=== PATIENT | male | born 1965 | race Caucasian/White ===

== ENCOUNTER → 2017-12-16 08:36 | Outpatient (CLI) | payer BC, SELFPAY ==
[2017-12-16 10:44] LABS: Absolute Lymphocyte Count 2.05 X10^3/ul (0.83-4.51); Absolute Neutrophil Count 1.3 X10^3/uL (2.0-7.7); Basophil# 0.02 X10^3/uL; Basophil% 0.5 % (0-1); Eosinophil# 0.17 X10^3/uL; Eosinophils% 4.3 % (0-5); Hematocrit 40.8 % (40-54); Hemoglobin 13.9 g/dl (13.0-16.5); Lymphocyte # 2.05 X10^3/ul (4.0); Lymphocyte % 51.3 % (19-41); Mean Corp Hgb Conc 34.1 g/gl (32-36); Mean Corpuscular Hgb 32.1 pg (27.0-32.0); Mean Corpuscular Volume 94.2 fL (80-94); Mean Platelet Vol. 9.8 fl (6.2-12.0); Monocyte# 0.47 X10^3/uL; Monocyte% 11.8 % (0-10); Neutrophil # 1.29 X10^3/uL (2.7-7.7); Neutrophil % 32.1 % (47-70); Platelet Count 235 K/mm3 (150-450); RBC Distribution Width CV 12.4 % (11.6-14.6); RBC Distribution Width SD 42.9 fl (35.1-43.9); Red Blood Count 4.33 M/mm3 (4.6-6.2)
[2017-12-16 10:47] LABS: POSITIVE COUNT NO; POSITIVE DIFFERENTIAL NO; POSITIVE MORPHOLOGY NO
[2017-12-16 11:01] LABS: ALB/GLOB Ratio 1.3 RATIO (0.9-2.4); AST(SGOT) 11 U/L (15-37); Alanine Aminotransfer ALT/SGPT 28 U/L (16-61); Albumin, Serum 4.4 g/dL (3.2-5.0); Alkaline Phosphatase 68 U/L (45-117); Anion Gap 7 (5-15); BUN 18 mg/dL (7-18); BUN/Creat Ratio 16.2 RATIO (10-20); Calcium,Total 8.9 mg/dL (8.5-10.1); Chloride 102 mmol/L (98-107); Creatinine, Serum 1.11 mg/dL (0.70-1.30); EST Glomerular Filtration Rate 74 mL/min (>60); Est Glom Filt Rate - Afr Amer 90 mL/min (>60); Ferritin 40 ng/mL (26-388); Globulin 3.3 g/dL (2.2-4.2); Glucose 137 mg/dL (74-106); Iron 149 ug/dL (65-175); Potassium 4.2 mmol/L (3.5-5.1); Protein, Total 7.7 g/dL (6.4-8.2); Sodium Level 138 mmol/L (136-145)
== END ==
PROVIDERS: Family Provider Family Medicine; PCP Family Medicine; Visit Provider Family Medicine
DX: E11.9 Type 2 diabetes mellitus without complications (principal); E83.119 Hemochromatosis, unspecified; K75.81 Nonalcoholic steatohepatitis (NASH)
CPT/HCPCS: 36415; 80053; 82728; 83036; 83540; 85025

== ENCOUNTER → 2018-01-24 08:28 | Outpatient (CLI) | payer BC, SELFPAY | PROVIDERS: Family Provider Family Medicine; PCP Family Medicine; Visit Provider Orthopaedic Surgery | DX: M25.531 Pain in right wrist (principal) | CPT/HCPCS: 73110 ==

== ENCOUNTER → 2018-05-10 08:19 | Outpatient (CLI) | payer BC, SELFPAY ==
--- NOTE | 2018-05-10 14:57 | NEURO ---
NCS and/or EMG Patient Report Ordering Doctor: Nevaeh Lopes DATE OF SERVICE: 05/10/18 Jose Reyes is a 52-year-old male presents for electrodiagnostic testing of the right upper limb. Reports numbness and tingling in the right hand. Electrodiagnostic findings: Right median motor nerve demonstrates prolonged distal latency with normal amplitude and reduced conduction velocity. Normal right ulnar motor response, including conduction across the elbow. Normal right median and ulnar F-wave. Prolonged right median sensory latency at the wrist. Needle EMG testing shows no evidence of denervation with normal motor unit action potentials. Electrodiagnostic impression: This is an abnormal study in the right upper limb. 1. Electrodiagnostic findings demonstrate right-sided median mononeuropathy. This is consistent with a mild right carpal tunnel syndrome. 2. No electrodiagnostic evidence for cervical radiculopathy. If there are any further questions, please do not hesitate to contact me
== END ==
PROVIDERS: Family Provider Family Medicine; PCP Family Medicine; Referring Provider Orthopaedic Surgery; Visit Provider Orthopaedic Surgery
DX: G56.01 Carpal tunnel syndrome, right upper limb (principal)
CPT/HCPCS: 95886; 95909

== ENCOUNTER → 2018-07-31 08:01 | Outpatient (CLI) | payer BC, SELFPAY ==
[2018-07-31 09:35] LABS: Absolute Lymphocyte Count 2.44 X10^3/ul (0.83-4.51); Absolute Neutrophil Count 1.4 X10^3/uL (2.0-7.7); Basophil# 0.02 X10^3/uL; Basophil% 0.4 % (0-1); Eosinophil# 0.26 X10^3/uL; Eosinophils% 5.7 % (0-5); Hematocrit 40.2 % (40-54); Hemoglobin 13.8 g/dl (13.0-16.5); Lymphocyte # 2.44 X10^3/ul (4.0); Lymphocyte % 53.9 % (19-41); Mean Corp Hgb Conc 34.3 g/gl (32-36); Mean Corpuscular Hgb 32.3 pg (27.0-32.0); Mean Corpuscular Volume 94.1 fL (80-94); Mean Platelet Vol. 10.4 fl (6.2-12.0); Monocyte# 0.44 X10^3/uL; Monocyte% 9.7 % (0-10); Neutrophil # 1.37 X10^3/uL (2.7-7.7); Neutrophil % 30.3 % (47-70); Platelet Count 221 K/mm3 (150-450); RBC Distribution Width CV 12.6 % (11.6-14.6); RBC Distribution Width SD 42.8 fl (35.1-43.9); Red Blood Count 4.27 M/mm3 (4.6-6.2); White Blood Count 4.5 K/mm3 (4.4-11.0)
[2018-07-31 09:38] LABS: POSITIVE COUNT NO; POSITIVE DIFFERENTIAL NO; POSITIVE MORPHOLOGY NO
[2018-07-31 09:54] LABS: Hemoglobin A1c 7.5 % (4.2-6.3)
[2018-07-31 10:00] LABS: Microalbumin,Random Urine 5.3 mg/L (NO RANGE EST.); Microalbumin:Creatinine Ratio 3.8 mg/g CRE (<30 mg/g CRE)
[2018-07-31 10:13] LABS: ALB/GLOB Ratio 1.3 RATIO (0.9-2.4); AST(SGOT) 13 U/L (15-37); Alanine Aminotransfer ALT/SGPT 39 U/L (16-61); Alkaline Phosphatase 67 U/L (45-117); BUN 13 mg/dL (7-18); Calcium,Total 8.4 mg/dL (8.5-10.1); Cholesterol 224 mg/dL (200); EST Glomerular Filtration Rate 84 mL/min (>60); Est Glom Filt Rate - Afr Amer 102 mL/min (>60); Glucose 147 mg/dL (74-106); Triglycerides 168 mg/dL
[2018-07-31 10:14] LABS: Anion Gap 11 (5-15); Chloride 103 mmol/L (98-107); Ferritin 19 ng/mL (26-388); High Density Lipoprotein 41 mg/dL; Iron 84 ug/dL (65-175); Potassium 4.2 mmol/L (3.5-5.1); Sodium Level 141 mmol/L (136-145); Very Low Density Lipoprotein 34 mg/dL (5-40)
== END ==
PROVIDERS: Family Provider Family Medicine; PCP Family Medicine; Referring Provider Family Medicine; Visit Provider Family Medicine
DX: E11.9 Type 2 diabetes mellitus without complications (principal); E83.119 Hemochromatosis, unspecified; K75.81 Nonalcoholic steatohepatitis (NASH); I51.9 Heart disease, unspecified
CPT/HCPCS: 80053; 80061; 82043; 82570; 82728; 83036; 83540; 85025

== ENCOUNTER 2018-09-20 05:53 | Day surgery (SDC) | payer BC, SELFPAY ==
--- NOTE | 2018-09-12 11:54 | HP_ITS ---
Intake Intake Visit Reasons: RIGHT WRIST Is patient in pain?: Yes Allergies meperidine [From Demerol] Allergy (Verified 09/12/18 09:53) Hives promethazine [From Phenergan] Allergy (Verified 09/12/18 09:53) Hives CYCLINE'S Allergy (Uncoded 10/09/17 09:50) Hives Medications Liraglutide [Victoza 2-Oneil] 1.8 mg SQ DAILY 09/18/16 [History Confirmed 11/23/17] Metformin(XR) [Glucophage Xr] 1,000 mg PO BID 09/18/16 [History Confirmed 11/23/17] Pantoprazole Sodium [Protonix] 40 mg PO DAILY 09/18/16 [History Confirmed 11/23/17] PFSH Medical History Diabetes (Chronic) EVANS (Chronic) hay fever (Chronic) Palpitations (Acute) History of kidney disease (Acute) severe headaches (Acute) Bicuspid cardiac valve (Chronic) Hemochromatosis (Chronic) Surgical History History of tonsillectomy (Resolved) History of kidney surgery (Resolved) Family History Father CAD (coronary artery disease) Mother Heart disease Breast cancer Social History Smoking Status: Never smoker alcohol intake: never caffeine: Yes Type: carbonated beverages Number of servings: 3 HPI RIGHT WRIST: Surgical H&P: Yes Details: Parts of this documentation were recorded by a scribe, this documentation accurately reflects the service provided and the decisions made by me, Nevaeh Lopes, 09/12/18 0948. ALEJANDRO DORANTES is a 53 year old M here today for a followup after his right EMG. Patient notes that he has numbness into his first three fingertips. He states that his symptoms are worse at night. He has a brace which he wears at night. Patient notes that he has weakness. Patient had an injection on 01/24/18 which was helpful for about 5 months. He had an EMG in May which is here for review. ROS Const Reports system reviewed and no additional complaints, except as docu Eyes Reports system reviewed and no additional complaints, except as docu ENT Reports system reviewed and no additional complaints, except as docu Card Reports system reviewed and no additional complaints, except as docu Resp Reports system reviewed and no additional complaints, except as docu GI Reports system reviewed and no additional complaints, except as docu Reports system reviewed and no additional complaints, except as docu Musc Reports joint pain, Reports muscle weakness, Reports numbness Skin/Breast Reports system reviewed and no additional complaints, except as docu Neuro Yes system reviewed and no additional complaints, except as docu, Yes numbness Psych Reports system reviewed and no additional complaints, except as docu Endo Reports system reviewed and no additional complaints, except as docu Ortho Exam Right Wrist/Hand Contralateral Normal: Yes Right Wrist: Yes Durken's Test Motor: EPL: 5, FDP-2: 5, 1st Dorsal Interosseous: 5, APB: 5 Sensation: Radial: I, Ulnar: I, Median: D Assessment & Plan Problems 1. Carpal tunnel syndrome of right wrist G56.01 Plan Reviewed the post op restrictions, two weeks of reduced use and if the incision is healed well he can progress with lifting. Reviewed patient's EMG studies consistent with carpal tunnel syndrome of the right wrist. Patient states this is a downtime for him from a work perspective and would really like surgery done to not imposed on his work ability. Reviewed the pre-operative plans with the patient. Risks and benefits of the procedure were fully explained, including but not limited to infection, neurovascular injury, continued pain, arthritis, stiffness, need for further surgery, re-injury, DVT, PE, general risks of anesthesia, and loss of limb or life. The patient understands all the risks and does wish to proceed with written consent right carpal tunnel release. Follow up post op or sooner if pain, swelling, numbness or associated symptoms, or concerns develop. All questions answered. Patient in agreement of plan. Coding Level of Care Code Off vis,est,level 4 Diagnoses Carpal tunnel syndrome of right wrist G56.01
[2018-09-20 06:19] VITALS: BP 144/88; PULSE 85; RESP 16; TEMP 36.6; O2SAT 100; BMI 30.7
[2018-09-20 06:31] LABS: Bedside Glucose 174 mg/dL (70-110)
[2018-09-20] MEDS: Cefazolin 2 GM in 0.9% Normal Saline 100 ML IV (07:21)
--- NOTE | 2018-09-20 07:29 | PCM.DC.ORTHO ---
Discharge Diet: No Restrictions - leave dressing intact, follow up in 2 weeks, call with concerns, if dressing gets dirty please change Discharge Activity: May Not Drive May shower in (days): 1 Ice area for (Minutes): 20 - Every hour while awake. Weight Bearing Status: Weight bearing as tolerated Keep extremity elevated above heart level: Operative Extremity Call your doctor if your incision/area has: Continuous Slow Oozing, Sudden Increased Bleeding, Increased Pain/ Swelling, Increased Redness, Foul Smelling Discharge Call your doctor if you observe: Fever of 101 or Higher, Coldness, Increased Pain, Numbness or Tingling, Change in Color, Calf discomfort Allergies/Adverse Reactions: Allergies meperidine [From Demerol] Allergy (Verified 09/20/18 06:12) Hives promethazine [From Phenergan] Allergy (Verified 09/20/18 06:12) Hives CYCLINE'S Allergy (Uncoded 09/20/18 06:12) Hives Medications to take at Discharge Liraglutide [Victoza 2-Oneil] 1.8 mg SQ DAILY 09/18/16 Metformin(XR) [Glucophage Xr] 1,000 mg PO BID 09/18/16 Pantoprazole Sodium [Protonix] 40 mg PO DAILY 09/18/16 Cetirizine HCl [Zyrtec] 10 mg PO DAILY 09/15/18 Fluticasone 0.05% [Flonase Nasal [place]] 1 spray NASAL DAILY 09/15/18 Multivitamin [Multiple Vitamins] 1 each PO DAILY 09/15/18 Pseudoephedrine HCl [Sudafed 12 Hour] 120 mg PO PRN PRN 09/15/18 Vitamin E Mixed [Vitamin E] 400 unit PO BID 09/15/18 Hydrocodone Bitart/Apap 5-325 [[place] 5MG-325MG] 1 - 2 tablet PO Q6H PRN PRN 5 Days #20 tablet 09/20/18 The following prescriptions were given: Hydrocodone Bitart/Apap 5-325 [[place] 5MG-325MG] 1 - 2 tablet PO Q6H PRN PRN 5 Days #20 tablet PRN Reason: Pain Primary Care Physician: Gibson Arroyo DO [Primary Care Provider] - Test Results: Test results from this visit will be discussed in further detail at your follow-up appointment, if applicable. Please Follow Up With: Nevaeh Lopes, - [phone]
--- NOTE | 2018-09-20 07:30 | PCM.OPRPT ---
Problem List (1) Right carpal tunnel syndrome Status: Acute Report of Operation Date of Procedure: 09/20/18 Pre-Operative Diagnosis: right carpal tunnel syndrome Post-Operative Diagnosis: same Surgery/Procedure Performed:: right carpal tunnel release Type of Anesthesia:: Brett Thacker Anesthesiologist: Basilio Archibald Estimated Blood Loss (mL): minimal Fluids Replaced: 700cc lr Description of Procedure: Preoperative note Patient is a 53 year old patient with nerve conduction study confirming carpal tunnel syndrome. Patient failed conservative treatment for carpal tunnel elected proceed with right carpal tunnel release. Risks benefits and alternatives surgery discussed with patient. Risks including but not limited to blood loss, blood clot, infection, neurovascular injury, failure procedure, loss of life and loss of limb. Patient is aware like proceed with right carpal tunnel release. Operative note Patient seen and examined preoperative holding area. right hand was marked. History and physical and consent reviewed. Patient was brought to the operating room placed supine on the operating table. Sign in, anesthesia, antibiotics were administered. right upper extremity was prepped and draped after Brett block was initiated. All bony prominences well-padded SCDs placed on bilateral lower extremities. We marked out our incisions for our carpal tunnel release at the intersection of Belia's line in the fourth ray flexed. We extended about a centimeter and a half. Timeout was performed. We then checked ensure that the [place] block was working with pickups which it was . We then used a 15 blade to make a skin incision. We then dissected down tenotomy syllable of the transverse carpal ligament. We then used a new 15 blade cut through the transverse carpal ligament down to the level of the median nerve. We then further released the median nerve the combination of the 15 blade and tenotomies. The nerve was grayish in color and adherent to the transverse carpal ligament volarly. We released the transverse carpal ligament distally to the fat pad and then proximally under standard technique. We then palpated to ensure that we released all of the transverse carpal ligament which we did. We irrigated the incision with copious amounts of sterile saline. All bleeders were coagulated. The incision was closed with interrupted 4-0 nylon stitches. Tourniquet was deflated for total working time of 9 minutes. Patient tolerated procedure well there were no complications. Patient transferred to recovery room in stable condition. Postoperative note [facility] pharmacy has prescription Leave dressing clean dry and intact Follow-up in 2 weeks Call with concerns This note was generated with [employer] dictation software. It may contain incorrect words, spelling, and punctuation that were not noted in checking the note before signing
[2018-09-20] MEDS: Mupirocin Ointment 22gm Tube 1 APPLIC (07:51)
[2018-09-20 08:00] VITALS: BP 128/90; BP 144/88; PULSE 77; RESP 16; TEMP 36.1; O2SAT 95
[2018-09-20 08:05] VITALS: BP 133/91; BP 144/88; PULSE 77; RESP 17; O2SAT 95
[2018-09-20 08:10] VITALS: BP 126/87; BP 144/88; PULSE 75; RESP 16; O2SAT 96
[2018-09-20 08:17] VITALS: BP 118/80; BP 144/88; PULSE 75; RESP 16; TEMP 36.2; O2SAT 97
[2018-09-20 08:42] VITALS: BP 144/88
== END 2018-09-20 08:44 | disposition home or self-care (01) ==
LOC: SDC 05:55 → AC 05:58
PROVIDERS: Family Provider Family Medicine; PCP Family Medicine; Referring Provider Orthopaedic Surgery; Visit Provider Orthopaedic Surgery
PROC: (CPT 64721; principal; 2018-09-20 07:15)
DX: G56.01 Carpal tunnel syndrome, right upper limb (principal); E11.9 Type 2 diabetes mellitus without complications; K75.81 Nonalcoholic steatohepatitis (NASH); E83.119 Hemochromatosis, unspecified; Q23.1 Congenital insufficiency of aortic valve; K21.9 Gastro-esophageal reflux disease without esophagitis; Z79.84 Long term (current) use of oral hypoglycemic drugs; Z79.899 Other long term (current) drug therapy
CPT/HCPCS: 64721; 82962; J7120

== ENCOUNTER → 2018-10-06 14:38 | Outpatient (CLI) | payer BC, SELFPAY ==
[2018-10-03 08:24] VITALS: BMI 30.7
[2018-10-06 17:08] LABS: HIV - WCH Non-Reactive (Nonreactive)
[2018-10-06 17:30] LABS: Chlamydia Trachomatis by PCR Negative (Negative); Neisserai gonorrhoeae by PCR Negative (Negative); Probe Check PASS; Sample Adequacy Control PASS; Specimen Processing Control PASS
[2018-10-08 14:47] LABS: HEPATITIS B SURFACE AG Negative (Negative); Hep C Antibodies <0.1 s/co ratio (0.0-0.9)
[2018-10-13 03:40] LABS: Rapid Plasmin Reagin (RPR) NONREACTIVE (NONREACTIVE)
== END ==
PROVIDERS: Family Provider Family Medicine; PCP Family Medicine; Visit Provider Family Medicine
DX: Z20.2 Contact with and (suspected) exposure to infections with a predominantly sexual mode of transmission (principal); Z72.52 High risk homosexual behavior; Z51.81 Encounter for therapeutic drug level monitoring
CPT/HCPCS: 36415; 86592; 86703; 86803; 87340; 87491; 87591

== ENCOUNTER → 2018-10-31 | Outpatient (CLI) | payer BC, SELFPAY ==
[2018-10-03 08:24] VITALS: BMI 30.7
[2018-10-31 16:34] LABS: Color, Urine Straw (Yellow); Glucose, Dipstick 1000 mg/dl (Normal); Ketone-Dipstick Negative (Negative); Leukocyte Esterase-Dipstick Negative /ul (Negative); Nitrite-Dipstick Negative (Negative); Occult Blood-Urine Negative /ul (Negative); Protein-Dipstick Negative (Negative); Urine Bilirubin Dipstick Negative (Negative); Urine Clarity Clear (Clear); Urine Urobilinogen Normal (Normal); Urine pH 6.5 (5.0 - 8.0)
[2018-10-31 16:37] LABS: ALB/GLOB Ratio 1.3 RATIO (0.9-2.4); AST(SGOT) 21 U/L (15-37); Alanine Aminotransfer ALT/SGPT 51 U/L (16-61); Albumin, Serum 4.4 g/dL (3.2-5.0); Alkaline Phosphatase 83 U/L (45-117); Anion Gap 7 (5-15); BUN 11 mg/dL (7-18); BUN/Creat Ratio 8.9 RATIO (10-20); Calcium,Total 9.3 mg/dL (8.5-10.1); Chloride 103 mmol/L (98-107); Creatinine, Serum 1.24 mg/dL (0.70-1.30); EST Glomerular Filtration Rate 65 mL/min (>60); Est Glom Filt Rate - Afr Amer 79 mL/min (>60); Globulin 3.4 g/dL (2.2-4.2); Glucose 197 mg/dL (74-106); Potassium 4.5 mmol/L (3.5-5.1); Protein, Total 7.8 g/dL (6.4-8.2); Sodium Level 137 mmol/L (136-145)
[2018-10-31 17:22] LABS: HIV - WCH Non-Reactive (Nonreactive)
== END | disposition home or self-care (01) ==
LOC: LAB 15:24
PROVIDERS: Family Provider Family Medicine; PCP Family Medicine; Referring Provider Family Medicine; Visit Provider Family Medicine
DX: E83.119 Hemochromatosis, unspecified (principal); E78.5 Hyperlipidemia, unspecified; Z51.81 Encounter for therapeutic drug level monitoring
CPT/HCPCS: 36415; 80053; 81002; 86703

== ENCOUNTER → 2019-01-31 08:43 | Outpatient (CLI) | payer BC, SELFPAY ==
[2018-10-03 08:24] VITALS: BMI 30.7
[2018-11-30 09:01] VITALS: BMI 29.4
[2019-01-31 09:49] LABS: Hemoglobin A1c 7.2 % (4.2-6.3)
[2019-01-31 10:26] LABS: AST(SGOT) 14 U/L (15-37); Alanine Aminotransfer ALT/SGPT 35 U/L (16-61); Alkaline Phosphatase 71 U/L (45-117); Anion Gap 5 (5-15); BUN 12 mg/dL (7-18); BUN/Creat Ratio 11.7 RATIO (10-20); Bilirubin, Direct 0.09 mg/dL (0.00-0.30); Calcium,Total 8.9 mg/dL (8.5-10.1); Chloride 109 mmol/L (98-107); Creatinine, Serum 1.03 mg/dL (0.70-1.30); EST Glomerular Filtration Rate 81 mL/min (>60); Est Glom Filt Rate - Afr Amer 98 mL/min (>60); Globulin 3.2 g/dL (2.2-4.2); Glucose 151 mg/dL (74-106); Potassium 4.5 mmol/L (3.5-5.1); Protein, Total 7.2 g/dL (6.4-8.2); Sodium Level 141 mmol/L (136-145)
== END ==
PROVIDERS: Family Provider Family Medicine; PCP Family Medicine; Referring Provider Family Medicine; Visit Provider Family Medicine
DX: Z51.81 Encounter for therapeutic drug level monitoring (principal)
CPT/HCPCS: 36415; 80048; 80076; 83036

== ENCOUNTER → 2019-02-08 09:50 | Outpatient (CLI) | payer BC, SELFPAY ==
[2018-11-30 09:01] VITALS: BMI 29.4
[2019-02-08 11:43] LABS: HIV - WCH Non-Reactive (Nonreactive)
== END ==
PROVIDERS: Family Provider Family Medicine; PCP Family Medicine; Referring Provider Family Medicine; Visit Provider Family Medicine
DX: Z51.81 Encounter for therapeutic drug level monitoring (principal)
CPT/HCPCS: 36415; 86703

== ENCOUNTER → 2019-08-02 08:39 | Outpatient (CLI) | payer BC, SELFPAY ==
[2018-11-30 09:01] VITALS: BMI 29.4
[2019-03-18 08:46] VITALS: BMI 29.4
[2019-08-02 09:12] LABS: Absolute Lymphocyte Count 2.53 X10^3/uL (0.83-4.51); Absolute Neutrophil Count 1.4 X10^3/uL (2.0-7.7); Basophil# 0.02 X10^3/uL; Basophil% 0.4 % (0-1); Eosinophil# 0.21 X10^3/uL; Eosinophils% 4.6 % (0-5); Hematocrit 38.1 % (40-54); Hemoglobin 13.7 g/dL (13.0-16.5); Lymphocyte # 2.53 X10^3/ul (4.0); Lymphocyte % 54.9 % (19-41); Mean Corpuscular Hgb 32.9 pg (27.0-32.0); Mean Corpuscular Volume 91.6 fL (80-94); Mean Platelet Vol. 9.6 fl (6.2-12.0); Monocyte# 0.43 X10^3/uL; Monocyte% 9.3 % (0-10); NRBC Flagged by Analyzer 0 % (0-5); Neutrophil # 1.42 X10^3/uL (2.7-7.7); Neutrophil % 30.8 % (47-70); Platelet Count 222 K/mm3 (150-450); RBC Distribution Width CV 11.6 % (11.6-14.6); RBC Distribution Width SD 38.7 fl (35.1-43.9); Red Blood Count 4.16 M/mm3 (4.6-6.2); White Blood Count 4.6 K/mm3 (4.4-11.0)
[2019-08-02 09:33] LABS: Hemoglobin A1c 7.6 % (4.2-6.3)
[2019-08-02 09:40] LABS: Microalbumin,Random Urine 53.8 mg/L (NO RANGE EST.); Microalbumin:Creatinine Ratio 28.9 mg/g CRE (<30 mg/g CRE)
[2019-08-02 09:48] LABS: ALB/GLOB Ratio 1.1 RATIO (0.9-2.4); AST(SGOT) 16 U/L (15-37); Alanine Aminotransfer ALT/SGPT 43 U/L (16-61); Albumin, Serum 3.9 g/dL (3.2-5.0); Alkaline Phosphatase 90 U/L (45-117); Anion Gap 8 (5-15); BUN 10 mg/dL (7-18); BUN/Creat Ratio 9.2 RATIO (10-20); Calcium,Total 8.8 mg/dL (8.5-10.1); Chloride 105 mmol/L (98-107); Cholesterol 192 mg/dL (200); Creatinine, Serum 1.09 mg/dL (0.70-1.30); EST Glomerular Filtration Rate 76 mL/min (>60); Est Glom Filt Rate - Afr Amer 91 mL/min (>60); Globulin 3.4 g/dL (2.2-4.2); Glucose 165 mg/dL (74-106); High Density Lipoprotein 36 mg/dL; PSA,Total - Annual Screen 1.92 ng/mL (0.00-4.00); Potassium 4.1 mmol/L (3.5-5.1); Protein, Total 7.3 g/dL (6.4-8.2); Sodium Level 138 mmol/L (136-145); Triglycerides 207 mg/dL; Very Low Density Lipoprotein 41 mg/dL (5-40)
[2019-08-02 10:04] LABS: HIV - WCH Non-Reactive (Nonreactive)
== END ==
PROVIDERS: Family Provider Family Medicine; PCP Family Medicine; Referring Provider Family Medicine; Visit Provider Family Medicine
DX: Z00.00 Encounter for general adult medical examination without abnormal findings (principal); Z12.5 Encounter for screening for malignant neoplasm of prostate; E11.9 Type 2 diabetes mellitus without complications; I51.9 Heart disease, unspecified; E83.119 Hemochromatosis, unspecified; Z20.9 Contact with and (suspected) exposure to unspecified communicable disease; Z51.81 Encounter for therapeutic drug level monitoring
CPT/HCPCS: 36415; 80053; 80061; 82043; 82570; 83036; 84153; 85025; 86703; G0103

== ENCOUNTER → 2019-12-24 08:48 | Outpatient (CLI) | payer BC, SELFPAY ==
[2019-12-04 08:17] VITALS: BMI 29.0
--- NOTE | 2019-12-24 08:49 | ECHOD_ITS ---
Reason For Study: BICUSPID AV Procedure This was a 2D Doppler, Color Flow transthoracic echocardiogram. Exam performed in department. Left Ventricle Normal LV size. Mild concentric left ventricular hypertrophy. Left ventricular systolic function is normal. The estimated ejection fraction is 65 %. Normal diastology for age. No regional wall motion abnormalities noted. Right Ventricle Normal RV size. Normal systolic function. Atria Normal left atrium. Normal right atrium. Mitral Valve Normal mitral valve. Trivial eccentric mitral valve insufficiency. Tricuspid Valve Normal tricuspid valve. Mild tricuspid valve insufficiency. Aortic Valve Bicuspid aortic valve. Peak aortic valve gradient 12 mmHg. Mean aortic valve gradient 6 mmHg. Trivial aortic valve insufficiency. Pulmonic Valve Normal pulmonic valve. Great Vessels Normal aortic root. The pulmonary artery is normal size. Normal inferior vena cava. Pericardium/Pleural No pericardial effusion. MMode/2D Measurements & Calculations LVIDd: 4.2 cm IVSd: 1.2 cm LVOT diam: 2.2 cm LVIDs: 2.7 cm LVPWd: 1.2 cm LVOT area: 3.9 cm2 RVDd: 2.8 cm FS: 35.6 % Ao root diam: 3.4 cm LAV(MOD-bp): 46.2 ml LA A4 area: 16.3 cm2 LAV(MOD-bp) Indexed: 22.1 ml/m2 LAV(MOD-sp2): 46.7 ml LAV(MOD-sp4): 44.6 ml LA dimension(2D): 3.5 cm RA A4 area: 12.4 cm2 Time Measurements MV dec time: 0.23 sec Doppler Measurements & Calculations MV E max christopher: 98.2 cm/sec Lat Peak E' Christopher: 11.2 cm/sec Med Peak E' Christopher: 10.4 cm/sec MV A max christopher: 70.1 cm/sec E/E' lat: 8.8 E/E' med: 9.5 MV E/A: 1.4 Ao V2 max: 143.3 cm/sec LV V1 max: 107.0 cm/sec SV(LVOT): 100.3 ml Ao max P.8 mmHg LV V1 max P.6 mmHg Ao V2 mean: 117.1 cm/sec LV V1 mean P.5 mmHg Ao mean P.0 mmHg LV V1 mean: 74.6 cm/sec Ao V2 VTI: 35.8 cm LV V1 VTI: 25.6 cm JENNIFER(I,D): 2.8 cm2 JENNIFER(V,D): 2.9 cm2 PA V2 max: 95.6 cm/sec Interpretation Summary Normal LV size. Mild concentric left ventricular hypertrophy. Left ventricular systolic function is normal. The estimated ejection fraction is 65 %. Bicuspid aortic valve. Trivial aortic valve insufficiency. Compared to prior study, there is no significant change. Ordering Physician: Jonnathan Celeste Referring Physician: Gibson Arroyo Performed By: Mary Bakre, YVES, RVT
== END ==
PROVIDERS: PCP Family Medicine; Referring Provider Internal Medicine Cardiovascular Disease; Visit Provider Internal Medicine Cardiovascular Disease
DX: Q23.1 Congenital insufficiency of aortic valve (principal)
CPT/HCPCS: 93306

== ENCOUNTER → 2020-01-31 08:09 | Outpatient (CLI) | payer BC, SELFPAY ==
[2018-11-30 09:01] VITALS: BMI 29.4
[2019-12-04 08:17] VITALS: BMI 29.0
[2020-01-31 09:31] LABS: ALB/GLOB Ratio 1.2 RATIO (0.9-2.4); AST(SGOT) 14 U/L (15-37); Alanine Aminotransfer ALT/SGPT 29 U/L (16-61); Alkaline Phosphatase 73 U/L (45-117); Anion Gap 3 (5-15); BUN 15 mg/dL (7-18); BUN/Creat Ratio 12.4 RATIO (10-20); Calcium,Total 8.6 mg/dL (8.5-10.1); Chloride 105 mmol/L (98-107); Cholesterol 184 mg/dL (200); Creatinine, Serum 1.21 mg/dL (0.70-1.30); EST Glomerular Filtration Rate 67 mL/min (>60); Est Glom Filt Rate - Afr Amer 81 mL/min (>60); Globulin 3.2 g/dL (2.2-4.2); Glucose 149 mg/dL (74-106); High Density Lipoprotein 40 mg/dL; Potassium 4.3 mmol/L (3.5-5.1); Protein, Total 7.2 g/dL (6.4-8.2); Sodium Level 137 mmol/L (136-145); Triglycerides 143 mg/dL; Very Low Density Lipoprotein 29 mg/dL (5-40)
[2020-01-31 09:32] LABS: Hemoglobin A1c 6.9 % (3.8-5.6)
[2020-01-31 11:02] LABS: HIV - WCH Non-Reactive (Nonreactive)
== END ==
PROVIDERS: Family Provider Family Medicine; PCP Family Medicine; Referring Provider Family Medicine; Visit Provider Family Medicine
DX: Z20.9 Contact with and (suspected) exposure to unspecified communicable disease (principal); Z51.81 Encounter for therapeutic drug level monitoring; E11.9 Type 2 diabetes mellitus without complications
CPT/HCPCS: 36415; 80053; 80061; 83036; 86703

== ENCOUNTER → 2020-02-25 08:37 | Outpatient (CLI) | payer BC, SELFPAY ==
[2019-12-04 08:17] VITALS: BMI 29.0
--- NOTE | 2020-02-25 08:40 | RAD_ITS ---
STUDY: X-RAY - LUMBAR SPINE REASON FOR EXAM: Male, 54 years old. Right hip pain x 3 years, hurts more with activity, most pain in right hip joint TECHNIQUE: 5 view(s) of the lumbar spine were obtained including oblique views. COMPARISON: None FINDINGS: Normal lumbar lordosis. There is no substantial scoliosis. There is a normal alignment of the vertebrae. There is multilevel endplate spondylosis of the lumbar vertebrae. Normal disc space heights. The soft tissue structures are unremarkable. RAD/L/S Spine Min 4 Views IMPRESSION: Degenerative changes of the spine, as detailed above. Electronically Signed: Praveen Griffith, at 13:19 EDT , Service support ,
--- NOTE | 2020-02-25 08:43 | RAD_ITS ---
STUDY: X-RAY - PELVIS AND RIGHT HIP REASON FOR EXAM: Male, 54 years old. Right hip pain x 3 years, hurts more with activity, most pain in right hip joint TECHNIQUE: 3 views of the pelvis and hip. COMPARISON: None. FINDINGS: There is a non-specific bowel gas pattern. There are multiple calcified phleboliths. Normal bilateral iliac wings, sacroiliac joints and visualized sacrum. Normal bilateral superior and inferior pubic rami. Normal pubic symphysis. Normal bilateral ischial tuberosities. Normal visualized femoral head. There is osteoarthritic spur formation of the acetabular rim. There is mild articular joint space narrowing of the hip. RAD/HIP, UNI W/ Pelvis 2-3 Views IMPRESSION: Mild degree of degenerative changes of the right hip joint. Electronically Signed: Praveen Griffith, at 13:18 EDT , Service support ,
== END ==
PROVIDERS: PCP Family Medicine; Referring Provider Family Medicine; Visit Provider Family Medicine
DX: M16.11 Unilateral primary osteoarthritis, right hip (principal); M54.41 Lumbago with sciatica, right side
CPT/HCPCS: 72110; 73502

== ENCOUNTER 2020-04-08 09:00 | Outpatient (RCR) | payer BC, SELFPAY ==
[2019-12-04 08:17] VITALS: BMI 29.0
--- NOTE | 2020-03-11 12:17 | HP.PTEVAL_ITS ---
Patient's Visit Information ALEJANDRO DORANTES is a 54 year old M referred to Physical Therapy by Dr. Gibson Arroyo DO with a diagnosis of PAIN IN RIGHT HIP ,IVDD LUMBAR REGION. Date of Evaluation: 03/11/20 Physical Therapist: Gonzales Gallegos, PT, Cert MDT, OCS - Visit Plan Frequency: 2x /Week Duration: 4 Weeks Plan: PT INTERVENTIONS MANUAL THERAPY STM RELEASE TO QUADRATOUS LABORUM,STRENGTHENING HIP ,CORE STRENGTHENING ,BALWINDER WITH WITH EXTENSION - Subjective This 54 y/o male presents to physical therapist with PAIN RIGHT HIP and IVDD LUMBAR REGION. Patient has had lateral hip pain years wosre pain in past 2 years. Patient unable to do elipitical for more than 15 mins. 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 Seen Dr smith x-rays showed hip had spur/mild DDD and DDD lumbar mild. Recommeded PT. Denies parathesia/tingling-. Patient had sciatica pain many years. Bowel/bladder-.Coughing/sneezing- . Pain described ache/soreness . Aggraveting stairs,lifting,sitting,and standing. . Allevating walking on the move is some better. No trauma. Pain at night is worse.Patient condtion of hip and back pain impairs jobs demands/QOL. SOCIAL: single. 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 GAIT:reciprocal pattern. PALPATION: quadratous laburum,pirifirmis. NEURO: intact ,denies parathesia/tingling, reflexes intact. PROM: HIP WFL NO PAIN. FLEXABLITY: HAMS WFL, piriformis mild tight. LUMBAR ROM: flexion WNL, extension min loss,side glides WNL. MMT: QUADS/HAMS 5/5,HIP FLEXION/ABD 4/5,ANKLE 5/5 - Special Tests L/S Slump test left side: Negative L/S Slump test right side: Negative L/S Left Straight Leg Raise: Negative L/S Right Straight Leg Raise: Negative Lumbar Standing: Flexion - Mechanical Response: No effect Lumbar Standing: Flexion - Symptoms During Testing: No effect Lumbar Standing: Flexion - Symptoms After Testing: No effect Lumbar Standing: Extension - Mechanical Response: No effect Lumbar Standing: Extension - Symptoms During Testing: No effect Lumbar Standing: Extension - Symptoms After Testing: No effect Lumbar Standing: Right Side Glides - Mechanical Response: No effect Lumbar Standing: Right Side [place] - Symptoms During Testing: No effect Lumbar Standing: Right Side [place] - Symptoms After Testing: No effect Lumbar Standing: Left Side [place] - Mechanical Response: No effect Lumbar Standing: Left Side [place] - Symptoms During Testing: No effect Lumbar Standing: Left Side [place] - Symptoms After Testing: No effect Lumbar Lying: Flexion - Mechanical Response: No effect Lumbar Lying: Flexion - Symptoms During Testing: No effect Lumbar Lying: Flexion - Symptoms After Testing: No effect Lumbar Lying: Extension - Mechanical Response: No effect Lumbar Lying: Extension - Symptoms During Testing: No effect Lumbar Lying: Extension - Symptoms After Testing: No effect R Hip Scour: Negative R Hip Quadrant - Intraarticular Pathology: Negative R Hip AMMON - Intraarticular Pathology: Negative R Hip FADDIR - Labrum: Negative R Hip Impingement Provocation - Labrum: Negative R Hip Trendelenberg - Glut Medius: Negative R Hip Cj - IT Band: Negative R Hip Resisted Exernal Derotation Test - GT Pain Syndrome: Negative - Goals Goal 1:: I with hep Goal Time Frame: 4-6 Weeks Goal 2:: Patient to lateral hip pain by 60% or > to improve function Goal Time Frame: 4-6 Weeks Goal 3:: Patient to increase strength of hip 4+/5 to improve function and QOL. Goal Time Frame: 4-6 Weeks Goal 4:: Patient LFES score by score by 5-10 points or> to improve function QOL. Goal Time Frame: 4-6 Weeks Goal 5:: Patient to improve job demands carrying up/down stairs and housework tasks . Goal Time Frame: 4-6 Weeks - Rehabilitation Potential Physical Therapy Diagnosis: This patient has chronic right lateral hip pain with with tenderness quadratous laborum,piriformis ,weakness hip ,worse with standing ,carry something heavy and upstairs ,worse at night thus benifit from skilled PT Rehabilitation Potential: Good - Anticipated Interventions Patient/Client Instruction: Educate patient on: Condition, Plan of Care For the Purpose of:: To decrease pain, To increase ROM, To improve muscle performance and motor function, To improve ability to perform ADL's, To increase tolerance to activity/condition/position, To improve ability of physical actions for home/community/work/leisure, To improve health of tissue, To decrease soft tissue restriction, To increase flexibility/ROM, To reduce risk of recurrence, To improve health and function, To improve ability to perform tasks related to life management Therapeutic Exercise to Include: Strength training, Balance training, Body mechanics, Postural training, Flexibilty training, Active ROM, Dynamic Lumbar Stabilization, Balwinder Exercises For the Purpose of:: To decrease pain, To increase ROM, To improve muscle performance and motor function, To improve ability to perform ADL's, To increase tolerance to activity/condition/position, To improve ability of physical actions for home/community/work/leisure, To improve health of tissue, To decrease soft tissue restriction, To increase flexibility/ROM, To improve ability to perform tasks related to life management Thank you for the opportunity to evaluate your patient. For Medicare and Medicare HMO plans, please review the plan of care and approve it. It will need to be FAXED BACK to us at [phone] for Medicare purposes. For Medicare only, by signing this I certify the plan of care. Please let me know if there are questions or concerns regarding this plan of care. Physician Signature: Date:
--- NOTE | 2020-06-11 13:26 | HP.PT.NRP ---
ALEJANDRO DORANTES was seen in my office for initial evaluation on 03/11/20. The following Plan of Care was established for this patient: Initial Frequency: 2x /Week Initial Duration: 4 Weeks Patient/Client Instruction: Educate patient on: Condition, Plan of Care For the Purpose of:: To decrease pain, To increase ROM, To improve muscle performance and motor function, To improve ability to perform ADL's, To increase tolerance to activity/condition/position, To improve ability of physical actions for home/community/work/leisure, To improve health of tissue, To decrease soft tissue restriction, To increase flexibility/ROM, To reduce risk of recurrence, To improve health and function, To improve ability to perform tasks related to life management Therapeutic Exercise to Include: Strength training, Balance training, Body mechanics, Postural training, Flexibilty training, Active ROM, Dynamic Lumbar Stabilization, Evelyn Exercises For the Purpose of:: To decrease pain, To increase ROM, To improve muscle performance and motor function, To improve ability to perform ADL's, To increase tolerance to activity/condition/position, To improve ability of physical actions for home/community/work/leisure, To improve health of tissue, To decrease soft tissue restriction, To increase flexibility/ROM, To improve ability to perform tasks related to life management This patient was last seen in our office . Pertinent comments regarding their Physical therapy will appear below: Patient was seen for PT for right hip pain ,IVDD lumbar focusing on flexablity ,core strengthening ,hip strengthening thus is d/c . At this point I will be discontinuing this patient from physical therapy. I would be happy to see this patient again in the future if found appropriate by the physician. Thank you! Gonzales Gallegos, PT, Cert MDT, OCS
== END 2020-04-08 19:00 | disposition home or self-care (01) ==
LOC: PT 09:00
PROVIDERS: PCP Family Medicine; Referring Provider Family Medicine; Visit Provider Family Medicine
DX: M25.551 Pain in right hip (principal); M51.36 Other intervertebral disc degeneration, lumbar region
CPT/HCPCS: 97014; 97110; 97140; 97161; G0283

== ENCOUNTER → 2020-08-01 07:40 | Outpatient (CLI) | payer BC, SELFPAY ==
[2019-12-04 08:17] VITALS: BMI 29.0
[2020-08-01 09:12] LABS: Absolute Lymphocyte Count 2.88 X10^3/uL (0.83-4.51); Absolute Neutrophil Count 1.4 X10^3/uL (2.0-7.7); Basophil# 0.04 X10^3/uL; Basophil% 0.8 % (0-1); Eosinophils% 4.1 % (0-5); Hematocrit 37.3 % (40-54); Hemoglobin 13.1 g/dL (13.0-16.5); Lymphocyte # 2.88 X10^3/ul (4.0); Lymphocyte % 58.7 % (19-41); Mean Corp Hgb Conc 35.1 g/dL (32-36); Mean Corpuscular Volume 96.9 fL (80-94); Mean Platelet Vol. 9.7 fl (6.2-12.0); Monocyte# 0.37 X10^3/uL; Monocyte% 7.5 % (0-10); NRBC Flagged by Analyzer 0 % (0-5); Neutrophil # 1.41 X10^3/uL (2.7-7.7); Neutrophil % 28.7 % (47-70); Platelet Count 236 K/mm3 (150-450); RBC Distribution Width CV 12.3 % (11.6-14.6); RBC Distribution Width SD 42.3 fl (35.1-43.9); Red Blood Count 3.85 M/mm3 (4.6-6.2); White Blood Count 4.9 K/mm3 (4.4-11.0)
[2020-08-01 09:36] LABS: Hemoglobin A1c 7.7 % (3.8-5.6)
[2020-08-01 09:42] LABS: Microalbumin,Random Urine 20.8 mg/L (NO RANGE EST.); Microalbumin:Creatinine Ratio 14.4 mg/g CRE (<30 mg/g CRE)
[2020-08-01 09:46] LABS: ALB/GLOB Ratio 1.2 RATIO (0.9-2.4); AST(SGOT) 17 U/L (15-37); Alanine Aminotransfer ALT/SGPT 37 U/L (16-61); Albumin, Serum 4.1 g/dL (3.2-5.0); Alkaline Phosphatase 82 U/L (45-117); Anion Gap 7 (5-15); BUN 15 mg/dL (7-18); BUN/Creat Ratio 13.5 RATIO (10-20); Chloride 104 mmol/L (98-107); Cholesterol 228 mg/dL (200); Creatinine, Serum 1.11 mg/dL (0.70-1.30); EST Glomerular Filtration Rate 74 mL/min (>60); Est Glom Filt Rate - Afr Amer 89 mL/min (>60); Ferritin 25 ng/mL (26-388); Globulin 3.5 g/dL (2.2-4.2); Glucose 176 mg/dL (74-106); High Density Lipoprotein 40 mg/dL; Iron 115 ug/dL (65-175); PSA,Total - Annual Screen 2.07 ng/mL (0.00-4.00); Potassium 4.2 mmol/L (3.5-5.1); Protein, Total 7.6 g/dL (6.4-8.2); Sodium Level 139 mmol/L (136-145); Triglycerides 273 mg/dL; Very Low Density Lipoprotein 55 mg/dL (5-40)
[2020-08-01 10:04] LABS: HIV - WCH Non-Reactive (Nonreactive)
== END ==
LOC: LAB.FUTURE 07:45 → LAB 07:46
PROVIDERS: PCP Family Medicine; Referring Provider Family Medicine; Visit Provider Family Medicine
DX: Z00.00 Encounter for general adult medical examination without abnormal findings (principal); Z12.5 Encounter for screening for malignant neoplasm of prostate; E11.9 Type 2 diabetes mellitus without complications; E83.119 Hemochromatosis, unspecified; E78.5 Hyperlipidemia, unspecified; Z20.9 Contact with and (suspected) exposure to unspecified communicable disease; Z51.81 Encounter for therapeutic drug level monitoring
CPT/HCPCS: 36415; 80053; 80061; 82043; 82570; 82728; 83036; 83540; 84153; 85025; 86703; G0103

== ENCOUNTER → 2020-11-05 07:36 | Outpatient (CLI) | payer BC, SELFPAY ==
[2019-12-04 08:17] VITALS: BMI 29.0
[2020-11-05 08:45] LABS: AST(SGOT) 27 U/L (15-37); Alanine Aminotransfer ALT/SGPT 36 U/L (16-61); Alkaline Phosphatase 87 U/L (45-117); Bilirubin, Direct 0.14 mg/dL (0.00-0.30); Cholesterol 134 mg/dL (200); Globulin 3.1 g/dL (2.2-4.2); High Density Lipoprotein 34 mg/dL; Protein, Total 7.1 g/dL (6.4-8.2); Triglycerides 166 mg/dL; Very Low Density Lipoprotein 33 mg/dL (5-40)
[2020-11-05 08:54] LABS: Hemoglobin A1c 8.5 % (3.8-5.6)
== END ==
PROVIDERS: PCP Family Medicine; Referring Provider Family Medicine; Visit Provider Family Medicine
DX: E11.9 Type 2 diabetes mellitus without complications (principal); E78.5 Hyperlipidemia, unspecified
CPT/HCPCS: 36415; 80061; 80076; 83036

== ENCOUNTER → 2021-02-11 10:54 | Outpatient (CLI) | payer BC, SELFPAY ==
[2021-02-11 13:22] LABS: Syphilis Antibodies Non-reactive
== END ==
PROVIDERS: PCP Family Medicine; Visit Provider Family Medicine
DX: Z20.2 Contact with and (suspected) exposure to infections with a predominantly sexual mode of transmission (principal)
CPT/HCPCS: 36415; 86780

== ENCOUNTER → 2021-06-02 08:32 | Outpatient (CLI) | payer BC, SELFPAY ==
[2021-06-02 09:42] LABS: Absolute Lymphocyte Count 2.99 X10^3/uL (0.83-4.51); Absolute Neutrophil Count 1.8 X10^3/uL (2.0-7.7); Basophil# 0.03 X10^3/uL; Basophil% 0.5 % (0-1); Eosinophil# 0.23 X10^3/uL; Eosinophils% 4.2 % (0-5); Hematocrit 39.7 % (40-54); Lymphocyte # 2.99 X10^3/ul (0.83-4.51); Lymphocyte % 54.1 % (19-41); Mean Corp Hgb Conc 35.3 g/dL (32-36); Mean Corpuscular Hgb 33.5 pg (27.0-32.0); Mean Platelet Vol. 9.8 fl (6.2-12.0); Monocyte# 0.47 X10^3/uL; Monocyte% 8.5 % (0-10); NRBC Flagged by Analyzer 0 % (0-5); Neutrophil # 1.81 X10^3/uL (2.7-7.7); Neutrophil % 32.7 % (47-70); Platelet Count 235 K/mm3 (150-450); RBC Distribution Width CV 12.1 % (11.6-14.6); RBC Distribution Width SD 41.8 fl (35.1-43.9); Red Blood Count 4.18 M/mm3 (4.6-6.2); White Blood Count 5.5 K/mm3 (4.4-11.0)
[2021-06-02 10:15] LABS: Microalbumin,Random Urine 21.5 mg/L (NO RANGE EST.); Microalbumin:Creatinine Ratio 20.5 mg/g CRE (<30 mg/g CRE)
[2021-06-02 10:20] LABS: Hemoglobin A1c 8.2 % (3.8-5.6)
[2021-06-02 10:35] LABS: ALB/GLOB Ratio 1.3 RATIO (0.9-2.4); AST(SGOT) 10 U/L (15-37); Alanine Aminotransfer ALT/SGPT 24 U/L (16-61); Albumin, Serum 4.1 g/dL (3.2-5.0); Alkaline Phosphatase 68 U/L (45-117); Anion Gap 9 (5-15); BUN 13 mg/dL (7-18); BUN/Creat Ratio 10.6 RATIO (10-20); Calcium,Total 8.8 mg/dL (8.5-10.1); Chloride 103 mmol/L (98-107); Cholesterol 134 mg/dL (200); Creatinine, Serum 1.23 mg/dL (0.70-1.30); EST Glomerular Filtration Rate 65 mL/min (>60); Est Glom Filt Rate - Afr Amer 79 mL/min (>60); Ferritin 11 ng/mL (26-388); Globulin 3.2 g/dL (2.2-4.2); Glucose 210 mg/dL (74-106); High Density Lipoprotein 35 mg/dL; Protein, Total 7.3 g/dL (6.4-8.2); Sodium Level 139 mmol/L (136-145); Triglycerides 181 mg/dL; Very Low Density Lipoprotein 36 mg/dL (5-40)
== END ==
PROVIDERS: PCP Family Medicine; Referring Provider Family Medicine; Visit Provider Family Medicine
DX: E11.9 Type 2 diabetes mellitus without complications (principal); E83.119 Hemochromatosis, unspecified; E78.5 Hyperlipidemia, unspecified
CPT/HCPCS: 36415; 80053; 80061; 82043; 82570; 82728; 83036; 85025

== ENCOUNTER 2021-06-09 15:53 | Outpatient (CLI) | payer BC, SELFPAY | END 2021-06-09 23:59 | disposition short-term general hospital (02) | LOC: LABSPEC 15:54 | PROVIDERS: PCP Family Medicine; Visit Provider Family Medicine | DX: R05.9 Cough, unspecified (principal) | CPT/HCPCS: 87635; U0003; U0005 ==

== ENCOUNTER → 2021-12-09 | Outpatient (CLI) | payer BC, SELFPAY ==
[2021-12-09 10:05] LABS: Absolute Lymphocyte Count 2.21 X10^3/uL (0.83-4.51); Absolute Neutrophil Count 2.4 X10^3/uL (2.0-7.7); Basophil# 0.03 X10^3/uL; Basophil% 0.6 % (0-1); Eosinophils% 3.7 % (0-5); Hemoglobin 14.2 g/dL (13.0-16.5); Lymphocyte # 2.21 X10^3/ul (0.83-4.51); Lymphocyte % 41.2 % (19-41); Mean Corp Hgb Conc 34.6 g/dL (32-36); Mean Corpuscular Hgb 32.9 pg (27.0-32.0); Mean Corpuscular Volume 95.1 fL (80-94); Monocyte# 0.48 X10^3/uL; NRBC Flagged by Analyzer 0 % (0-5); Neutrophil # 2.43 X10^3/uL (2.7-7.7); Neutrophil % 45.3 % (47-70); Platelet Count 241 K/mm3 (150-450); RBC Distribution Width CV 12.3 % (11.6-14.6); RBC Distribution Width SD 42.5 fl (35.1-43.9); Red Blood Count 4.31 M/mm3 (4.6-6.2); White Blood Count 5.4 K/mm3 (4.4-11.0)
[2021-12-09 10:32] LABS: Hemoglobin A1c 8.2 % (3.8-5.6)
[2021-12-09 10:39] LABS: Microalbumin,Random Urine 25.8 mg/L (NO RANGE EST.); Microalbumin:Creatinine Ratio 28.6 mg/g CRE (<30 mg/g CRE)
[2021-12-09 10:59] LABS: ALB/GLOB Ratio 1.2 RATIO (0.9-2.4); AST(SGOT) 9 U/L (15-37); Alanine Aminotransfer ALT/SGPT 18 U/L (16-61); Alkaline Phosphatase 69 U/L (45-117); Anion Gap 7 (5-15); BUN 11 mg/dL (7-18); BUN/Creat Ratio 9.2 RATIO (10-20); Calcium,Total 9.3 mg/dL (8.5-10.1); Chloride 103 mmol/L (98-107); Cholesterol 132 mg/dL (200); EST Glomerular Filtration Rate 67 mL/min (>60); Est Glom Filt Rate - Afr Amer 81 mL/min (>60); Ferritin 13 ng/mL (26-388); Globulin 3.3 g/dL (2.2-4.2); Glucose 179 mg/dL (74-106); High Density Lipoprotein 39 mg/dL; Potassium 4.2 mmol/L (3.5-5.1); Protein, Total 7.3 g/dL (6.4-8.2); Sodium Level 137 mmol/L (136-145); Thyroid Stim Hormone (TSH) 1.01 uIU/mL (0.358-3.74); Triglycerides 92 mg/dL; Very Low Density Lipoprotein 18 mg/dL (5-40)
== END | disposition home or self-care (01) ==
LOC: LAB 08:54
PROVIDERS: PCP Family Medicine; Visit Provider Family Medicine
DX: Z00.00 Encounter for general adult medical examination without abnormal findings (principal); E11.9 Type 2 diabetes mellitus without complications; E83.119 Hemochromatosis, unspecified
CPT/HCPCS: 36415; 80053; 80061; 82043; 82570; 82728; 83036; 84443; 85025

== ENCOUNTER → 2022-06-10 | Outpatient (CLI) | payer BC, SELFPAY ==
[2022-06-10 10:17] LABS: Absolute Lymphocyte Count 2.61 X10^3/uL (0.83-4.51); Absolute Neutrophil Count 1.2 X10^3/uL (2.0-7.7); Basophil# 0.04 X10^3/uL; Basophil% 0.9 % (0-1); Eosinophil# 0.32 X10^3/uL; Eosinophils% 6.9 % (0-5); Hematocrit 42.1 % (40-54); Hemoglobin 14.7 g/dL (13.0-16.5); Lymphocyte # 2.61 X10^3/ul (0.83-4.51); Lymphocyte % 55.9 % (19-41); Mean Corp Hgb Conc 34.9 g/dL (32-36); Mean Corpuscular Volume 94.6 fL (80-94); Mean Platelet Vol. 9.7 fl (6.2-12.0); Monocyte# 0.53 X10^3/uL; Monocyte% 11.3 % (0-10); NRBC Flagged by Analyzer 0 % (0-5); Neutrophil # 1.16 X10^3/uL (2.7-7.7); Neutrophil % 24.8 % (47-70); Platelet Count 237 K/mm3 (150-450); RBC Distribution Width CV 12.7 % (11.6-14.6); RBC Distribution Width SD 43.4 fl (35.1-43.9); Red Blood Count 4.45 M/mm3 (4.6-6.2); White Blood Count 4.7 K/mm3 (4.4-11.0)
[2022-06-10 10:41] LABS: Microalbumin,Random Urine 7.9 mg/L (NO RANGE EST.); Microalbumin:Creatinine Ratio 6.3 mg/g CRE (<30 mg/g CRE)
[2022-06-10 10:43] LABS: ALB/GLOB Ratio 1.3 RATIO (0.9-2.4); AST(SGOT) 10 U/L (15-37); Alanine Aminotransfer ALT/SGPT 20 U/L (16-61); Albumin, Serum 4.4 g/dL (3.2-5.0); Alkaline Phosphatase 68 U/L (45-117); Anion Gap 6 (5-15); BUN 23 mg/dL (7-18); BUN/Creat Ratio 19.3 RATIO (10-20); Calcium,Total 9.3 mg/dL (8.5-10.1); Chloride 104 mmol/L (98-107); Cholesterol 138 mg/dL (200); Creatinine, Serum 1.19 mg/dL (0.70-1.30); EST Glomerular Filtration Rate 68 mL/min (>60); Est Glom Filt Rate - Afr Amer 82 mL/min (>60); Ferritin 17 ng/mL (26-388); Globulin 3.3 g/dL (2.2-4.2); Glucose 128 mg/dL (74-106); High Density Lipoprotein 38 mg/dL; Iron 176 ug/dL (65-175); Potassium 4.4 mmol/L (3.5-5.1); Protein, Total 7.7 g/dL (6.4-8.2); Sodium Level 136 mmol/L (136-145); Triglycerides 101 mg/dL; Very Low Density Lipoprotein 20 mg/dL (5-40)
[2022-06-10 10:59] LABS: Hemoglobin A1c 6.6 % (3.8-5.6)
== END | disposition home or self-care (01) ==
LOC: LAB 08:37
PROVIDERS: PCP Family Medicine; Referring Provider Family Medicine; Visit Provider Family Medicine
DX: E11.9 Type 2 diabetes mellitus without complications (principal); E83.119 Hemochromatosis, unspecified; E78.5 Hyperlipidemia, unspecified
CPT/HCPCS: 36415; 80053; 80061; 82043; 82570; 82728; 83036; 83540; 85025

== ENCOUNTER → 2022-09-14 | Outpatient (CLI) | payer BC, SELFPAY ==
[2022-09-14 08:39] LABS: Absolute Lymphocyte Count 2.34 X10^3/uL (0.83-4.51); Absolute Neutrophil Count 1.1 X10^3/uL (2.0-7.7); Basophil# 0.02 X10^3/uL; Basophil% 0.5 % (0-1); Eosinophil# 0.24 X10^3/uL; Eosinophils% 5.9 % (0-5); Hematocrit 41.1 % (40-54); Hemoglobin 13.8 g/dL (13.0-16.5); Lymphocyte # 2.34 X10^3/ul (0.83-4.51); Lymphocyte % 57.1 % (19-41); Mean Corp Hgb Conc 33.6 g/dL (32-36); Mean Corpuscular Hgb 31.7 pg (27.0-32.0); Mean Corpuscular Volume 94.5 fL (80-94); Mean Platelet Vol. 9.2 fl (6.2-12.0); Monocyte% 9.8 % (0-10); NRBC Flagged by Analyzer 0 % (0-5); Neutrophil % 26.7 % (47-70); Platelet Count 233 K/mm3 (150-450); RBC Distribution Width CV 12.4 % (11.6-14.6); RBC Distribution Width SD 43.2 fl (35.1-43.9); Red Blood Count 4.35 M/mm3 (4.6-6.2); White Blood Count 4.1 K/mm3 (4.4-11.0)
[2022-09-14 09:15] LABS: Hemoglobin A1c 6.7 % (3.8-5.6)
[2022-09-14 09:25] LABS: ALB/GLOB Ratio 1.2 RATIO (0.9-2.4); AST(SGOT) 13 U/L (15-37); Alanine Aminotransfer ALT/SGPT 24 U/L (16-61); Albumin, Serum 4.1 g/dL (3.2-5.0); Alkaline Phosphatase 62 U/L (45-117); Anion Gap 7 (5-15); BUN 22 mg/dL (7-18); BUN/Creat Ratio 19.3 RATIO (10-20); Calcium,Total 9.1 mg/dL (8.5-10.1); Chloride 102 mmol/L (98-107); Cholesterol 144 mg/dL (200); Creatinine, Serum 1.14 mg/dL (0.70-1.30); EST Glomerular Filtration Rate 71 mL/min (>60); Est Glom Filt Rate - Afr Amer 86 mL/min (>60); Ferritin 10 ng/mL (26-388); Globulin 3.3 g/dL (2.2-4.2); Glucose 149 mg/dL (74-106); High Density Lipoprotein 38 mg/dL; Iron 55 ug/dL (65-175); Potassium 4.2 mmol/L (3.5-5.1); Protein, Total 7.4 g/dL (6.4-8.2); Sodium Level 135 mmol/L (136-145); Triglycerides 149 mg/dL; Very Low Density Lipoprotein 30 mg/dL (5-40)
== END | disposition home or self-care (01) ==
PROVIDERS: PCP Family Medicine; Referring Provider Family Medicine; Visit Provider Family Medicine
DX: E11.9 Type 2 diabetes mellitus without complications (principal); E83.119 Hemochromatosis, unspecified
CPT/HCPCS: 36415; 80053; 80061; 82728; 83036; 83540; 85025

== ENCOUNTER → 2023-03-23 | Outpatient (CLI) | payer BC, SELFPAY ==
[2023-03-23 08:06] LABS: Absolute Neutrophil Count 1.3 X10^3/uL (2.0-7.7); Basophil# 0.03 X10^3/uL; Basophil% 0.7 % (0-1); Eosinophil# 0.24 X10^3/uL; Eosinophils% 5.5 % (0-5); Hematocrit 40.6 % (40-54); Hemoglobin 13.3 g/dL (13.0-16.5); Lymphocyte % 52.9 % (19-41); Mean Corp Hgb Conc 32.8 g/dL (32-36); Mean Corpuscular Volume 97.8 fL (80-94); Monocyte# 0.43 X10^3/uL; Monocyte% 9.9 % (0-10); NRBC Flagged by Analyzer 0 % (0-5); Neutrophil # 1.34 X10^3/uL (2.7-7.7); Neutrophil % 30.8 % (47-70); Platelet Count 238 K/mm3 (150-450); RBC Distribution Width CV 12.3 % (11.6-14.6); RBC Distribution Width SD 44.6 fl (35.1-43.9); Red Blood Count 4.15 M/mm3 (4.6-6.2); White Blood Count 4.4 K/mm3 (4.4-11.0)
[2023-03-23 08:41] LABS: Microalbumin,Random Urine < 5.0 mg/L (NO RANGE EST.)
[2023-03-23 08:46] LABS: ALB/GLOB Ratio 1.1 RATIO (0.9-2.4); AST(SGOT) 8 U/L (15-37); Alanine Aminotransfer ALT/SGPT 23 U/L (16-61); Albumin, Serum 3.7 g/dL (3.2-5.0); Alkaline Phosphatase 61 U/L (45-117); Anion Gap 6 (5-15); BUN 12 mg/dL (7-18); BUN/Creat Ratio 9.6 RATIO (10-20); Calcium,Total 8.6 mg/dL (8.5-10.1); Chloride 107 mmol/L (98-107); Cholesterol 122 mg/dL (200); Creatinine, Serum 1.25 mg/dL (0.70-1.30); EST Glomerular Filtration Rate 64 mL/min (>60); Est Glom Filt Rate - Afr Amer 77 mL/min (>60); Ferritin 8 ng/mL (26-388); Globulin 3.3 g/dL (2.2-4.2); Glucose 215 mg/dL (74-106); High Density Lipoprotein 48 mg/dL; Iron 36 ug/dL (65-175); PSA,Total - Annual Screen 1.78 ng/mL (0.00-4.00); Potassium 4.2 mmol/L (3.5-5.1); Sodium Level 140 mmol/L (136-145); Triglycerides 105 mg/dL; Very Low Density Lipoprotein 21 mg/dL (5-40)
[2023-03-23 18:36] LABS: Hemoglobin A1c 6.6 % (3.8-5.6)
== END | disposition home or self-care (01) ==
LOC: LAB 07:00
PROVIDERS: PCP Family Medicine; Referring Provider Family Medicine; Visit Provider Family Medicine
DX: E11.9 Type 2 diabetes mellitus without complications (principal); E83.119 Hemochromatosis, unspecified; E78.5 Hyperlipidemia, unspecified; Z12.5 Encounter for screening for malignant neoplasm of prostate
CPT/HCPCS: 36415; 80053; 80061; 82043; 82570; 82728; 83036; 83540; 84153; 85025; G0103

== ENCOUNTER → 2023-06-07 | Outpatient (CLI) | payer BC, SELFPAY ==
--- NOTE | 2023-06-07 13:47 | ECHOD_ITS ---
Reason For Study: AORTIC VALVE INSUFFICIENCY Procedure This was a 2D Doppler, Color Flow transthoracic echocardiogram. Exam performed in department. Left Ventricle Normal LV size. Left ventricular systolic function is normal. The estimated ejection fraction is 60 %. No regional wall motion abnormalities noted. Right Ventricle Normal RV size. Normal systolic function. Atria Normal left atrium. Normal right atrium. Mitral Valve Normal mitral valve. Tricuspid Valve Normal tricuspid valve. Mild tricuspid valve insufficiency. Pulmonary artery systolic pressure is 30 mmHg. Aortic Valve Bicuspid aortic valve. Pulmonic Valve Normal pulmonic valve. Great Vessels Normal aortic root. The pulmonary artery is normal size. Normal inferior vena cava. Pericardium/Pleural No pericardial effusion. MMode/2D Measurements & Calculations LVIDd: 3.9 cm IVSd: 0.96 cm Ao root diam: 3.2 cm LVIDs: 2.7 cm LVPWd: 0.97 cm RVDd: 3.3 cm FS: 32.3 % LAV(MOD-bp): 29.5 ml LVAd ap4: 34.0 cm2 SV(MOD-sp4): 70.3 ml LAV(MOD-bp) Indexed: 14.8 ml/m2 LVLd ap4: 8.5 cm LAV(MOD-sp2): 30.9 ml EDV(MOD-sp4): 108.2 ml LAV(MOD-sp4): 26.4 ml EDV(sp4-el): 115.4 ml LVAs ap4: 18.5 cm2 LVLs ap4: 7.3 cm ESV(MOD-sp4): 37.9 ml ESV(sp4-el): 40.1 ml EF(MOD-sp4): 65.0 % EF(sp4-el): 65.3 % SV(sp4-el): 75.3 ml LA A4 area: 12.2 cm2 LA dimension(2D): 2.9 cm RA A4 area: 12.2 cm2 Time Measurements MV dec time: 0.26 sec Doppler Measurements & Calculations MV E max christopher: 61.9 cm/sec Lat Peak E' Christopher: 9.1 cm/sec Med Peak E' Christopher: 8.6 cm/sec MV A max christopher: 79.8 cm/sec E/E' lat: 6.8 E/E' med: 7.2 MV E/A: 0.78 Ao V2 max: 152.9 cm/sec LV V1 max: 108.3 cm/sec PA V2 max: 105.3 cm/sec Ao max P.4 mmHg LV V1 max P.7 mmHg PI end-d christopher: 60.8 cm/sec TR max christopher: 254.0 cm/sec TR max P.8 mmHg ECHO/Echo Complete Interpretation Summary Normal LV size. Left ventricular systolic function is normal. The estimated ejection fraction is 60 %. Bicuspid aortic valve. Ordering Physician: Navi Castelan/Jonnathan Celeste Referring Physician: JACINTO STEPHENS Performed By: Stefanie Andres RDCS
== END | disposition home or self-care (01) ==
LOC: CVS 13:46
PROVIDERS: PCP Family Medicine; Referring Provider Nurse Practitioner Family; Visit Provider Nurse Practitioner Family
DX: Q23.1 Congenital insufficiency of aortic valve (principal); E83.119 Hemochromatosis, unspecified; E78.5 Hyperlipidemia, unspecified
CPT/HCPCS: 93306

== ENCOUNTER → 2023-06-15 | Outpatient (CLI) | payer BC, SELFPAY ==
--- NOTE | 2023-06-15 06:46 | CT_ITS ---
INDICATION: LUQ AND FLANK PAIN EXAMINATION: CT ABDOMEN AND PELVIS WITHOUT CONTRAST - CT Abdomen And Pelvis W/O Contrast Injection TECHNIQUE: Helically acquired images were obtained of the abdomen and pelvis without oral or IV contrast. A radiation dose optimization technique was used for this scan. IV Contrast dosage and agent: None. Oral contrast: None. RADIATION DOSAGE (If Supplied By Facility): CTDIvol = ( 7.87 ) mGy, DLP = ( 438.26 ) mGycm COMPARISON: December 16, 2016 FINDINGS: LOWER CHEST: Lung bases are clear. No cardiomegaly or pericardial effusion. The lack of intravenous contrast limits the evaluation of solid visceral organs. LIVER: Homogeneous. No focal mass. GALLBLADDER AND BILIARY TREE: No calcified gallstones. No gallbladder distension or wall edema. No intra- or extrahepatic biliary ductal dilation. PANCREAS: No focal cystic or solid mass. SPLEEN: Normal size without focal cystic or solid mass. ADRENAL GLANDS: No nodules. KIDNEYS AND URETERS: Normal renal size and position. There is grossly stable left-sided hydronephrosis. There is a stable transition point within the proximal left ureter where surgical clips within the left retroperitoneum are visualized. PERITONEUM: No ascites or free air. No other fluid collection. BOWEL: No evidence of acute appendicitis. No stomach or bowel distension. No focal inflammatory change. LYMPH NODES: No enlarged mesenteric or retroperitoneal lymph nodes. VESSELS: Aorta is non-dilated. URINARY BLADDER: Unremarkable. REPRODUCTIVE ORGANS: No pelvic masses. ABDOMINAL WALL: No discrete abdominal or pelvic wall hernia. BONES: There are mild degenerative changes of the visualized thoracic and lumbar spine. CT/Abdomen/Pelvis without Cont IMPRESSION: Stable left-sided hydroureteronephrosis with a stable transition point within the left proximal ureter where surgical clips are present within the left retroperitoneum. Electronically Signed: Ruthie Singh MD at 9:35 EST ,
--- OUTSIDE RECORDS SUMMARY | 2023-06-15 06:51 | XMS RPT_ITS | CCD ---
Author Name Unknown Address [address] [place] [address] Organization [facility] Care Team Providers Care Mill Supervisor Name Role Phone Flora Jefferson RN Unavailable Unavailable Daya Palacios Unavailable Daya Palacios Unavailable Allergies Allergy Classification Reported Allergen(s) Allergy Type Date of Onset Reaction(s) Facility (4 sources) doxycycline; Translations: [DOXYCYCLINE] drug allergy 10-31-2012 [facility] Work Phone: (3 sources) meperidine drug allergy 10-31-2012 [facility] Work Phone: (3 sources) promethazine drug allergy 10-31-2012 [facility] Work Phone: (3 sources) ALL CYCLINES drug allergy 11-20-2015 hives [facility] Work Phone: (1 source) Meperidine; Translations: [MEPERIDINE] Drug Allergy 07-03-2013 [facility] Repository Medications Completed/Discontinued Medications Medication Drug Class(es) Dates Sig (Normalized) Sig (Original) ALBUTEROL SULFATE (6 sources) beta2-Adrenergic Agonist Start: 10-31-2012 End: 11-01-2012 PROAIR HFA 108 (90 Base) MCG/ACT AERS three times a day as needed ALBUTEROL SULFATE [id number] Jonnathan Celeste MD Problems Active Problems Problem Classification Problem Date Documented Date Episodic/Chronic Cardiac and circulatory congenital anomalies (3 sources) Bicuspid aortic valve; Translations: [Congenital insufficiency of aortic valve] Onset: 10-31-2012 10-31-2012 Chronic Diabetes mellitus without complication (3 sources) Diabetes mellitus; Translations: [Type 2 diabetes mellitus without complications] Onset: 10-31-2012 10-31-2012 Chronic Disorders of lipid metabolism (3 sources) Hyperlipidemia; Translations: [Hyperlipidemia, unspecified] Onset: 10-31-2012 10-31-2012 Chronic Heart valve disorders (3 sources) Nonrheumatic aortic (valve) insufficiency; Translations: [Nonrheumatic aortic (valve) insufficiency] Onset: 11-20-2015 11-20-2015 Chronic Other and ill-defined heart disease (3 sources) Left ventricular hypertrophy; Translations: [Cardiomegaly] Onset: 11-20-2015 11-20-2015 Chronic Other nutritional; endocrine; and metabolic disorders (6 sources) Hemochromatosis; Translations: [Hereditary hemochromatosis] Onset: 05-28-2013 05-28-2013 Chronic Past or Other Problems Problem Classification Problem Date Documented Da te Episodic/Chronic Cardiac dysrhythmias (3 sources) Palpitations; Translations: [Palpitations] Onset: 11-01-2012 11-01-2012 Episodic Nonspecific chest pain (6 sources) Chest pain, unspecified; Translations: [Chest pain, unspecified] Onset: 11-01-2012 Resolved: 11-19-2015 11-19-2015 Episodic Unclassified (3 sources) Family history of ischemic heart disease and other diseases of the circulatory system; Translations: [Family history of ischemic heart disease and other diseases of the circulatory system] 11-15-2014 Episodic Results Test Name Value Interpretation Reference Range Facil ity Vital Signs Date Time Vital Sign Value Performing Clinician Archie bryant 11-23-2016 08:36-0400 BMI (Body Mass Index) 28.41 kg/m2 Daya Jasso [employer] [facility] Work Phone: 11-23-2016 08:36-0400 BP Diastolic 60 mm[Hg] Daya [facility] Work Phone: 11-23-2016 08:36-0400 BP Systolic 100 mm[Hg] Daya Jasso [facility] Work Phone: 11-23-2016 08:36-0400 Height 177.8 cm Daya Jasso [facility] Work Phone: 11-23-2016 08:36-0400 Pulse (Heart Rate) 72 /min Daya [facility] Work Phone: 11-23-2016 08:36-0400 Respiratory Rate 20 /min Daya [facility] Work Phone: 11-23-2016 08:36-0400 Weight 89.81 kg Daya [facility] Work Phone: 11-20-2015 11:33-0400 BSA (Body Surface Area) 2.12 m2 Daya [facility] Work Phone: Encounters Encounter Date Encounter Type Care Provider Facility Start: 03-10-2023 End: 03-10-2023 ambulatory [facility] pital Procedures Date Procedure Procedure Detail Performing Clinician Start: 11-23-2016 End: 01-04-2017 Echocardiography Jonnathan Celeste MD Start: 11-23-2016 End: 11-23-2016 Follow Up Appt 1 year Jonnathan Celeste MD Start: 11-23-2016 End: 11-23-2016 MM Jonnathan Celeste MD Start: 11-20-2015 End: 11-23-2016 LACIE Celeste MD Start: 11-20-2015 End: 11-23-2016 Follow Up Appt 1 year Jonnathan Celeste MD Start: 11-15-2014 End: 11-15-2014 LACIE Celeste MD Start: 11-15-2014 End: 11-15-2014 Echocardiography Jonnathan Celeste MD Start: 10-30-2013 End: 10-30-2013 LACIE Celeste MD Start: 10-30-2013 End: 10-30-2013 Follow Up Appt 1 year Jonnathan Celeste MD Start: 11-01-2012 End: 11-17-2012 *BMP Jonnathan Celeste MD Start: 11-01-2012 End: 11-01-2012 GROUND HOST/HOSTESS Jonnathan Celeste MD Start: 11-01-2012 End: 11-10-2012 Echocardiography Jonnathan Celeste MD Start: 11-01-2012 End: 11-01-2012 Follow Up Appt 1 year Jonnathan Celeste MD Start: 11-01-2012 End: 11-17-2012 Magnesium Jonnathan Celeste MD Start: 11-01-2012 End: 11-17-2012 Thyroid stimulating hormone (TSH) Jonnathan Celeste MD Plan of Treatment Date Care Activity Detail Author Start: 11-23-2017 End: 11-23-2017 Appointment Appointment [facility] Work Phone: Start: 11-23-2016 End: 11-23-2016 Echocardiography Echocardiogram (complete) [facility] Work Phone: Start: 11-23-2016 End: 11-23-2016 Follow Up Appt 1 year Follow Up Appt 1 year [facility] Work Phone: Start: 11-23-2016 End: 11-23-2016 MMM MMM [facility] Work Phone: Start: 11-20-2015 End: 11-23-2016 GROUND HOST/HOSTESS GROUND HOST/HOSTESS [facility] Work Phone: Start: 11-20-2015 End: 11-23-2016 Follow Up Appt 1 year Follow Up Appt 1 year [facility] Work Phone: Start: 11-15-2014 End: 11-15-2014 GROUND HOST/HOSTESS GROUND HOST/HOSTESS [facility] Work Phone: Start: 11-15-2014 End: 11-15-2014 Follow Up Appt 1 year Follow Up Appt 1 year [facility] Work Phone: Start: 10-30-2013 End: 10-30-2013 GROUND HOST/HOSTESS GROUND HOST/HOSTESS [facility] Work Phone: Start: 10-30-2013 End: 10-30-2013 Follow Up Appt 1 year Follow Up Appt 1 year [facility] Work Phone: Start: 11-01-2012 End: 11-17-2012 *BMP *BMP [facility] Work Phone: Start: 11-01-2012 End: 11-01-2012 24 hour holter monitor 24 hour holter monitor [facility] Work Phone: Start: 11-01-2012 End: 11-01-2012 GROUND HOST/HOSTESS GROUND HOST/HOSTESS [facility] Work Phone: Start: 11-01-2012 End: 11-01-2012 Echocardiography Echocardiogram (complete) [facility] Work Phone: Start: 11-01-2012 End: 11-01-2012 Follow Up Appt 1 year Follow Up Appt 1 year [facility] Work Phone: Start: 11-01-2012 End: 11-17-2012 Magnesium *Magnesium [facility] Work Phone: Start: 11-01-2012 End: 11-17-2012 Thyroid stimulating hormone (TSH) *TSH [facility] Work Phone: Start: 11-01-2012 End: 11-17-2012 Thyroxine (T4) *T4 (Total) [facility] Work Phone: Payers Date Payer Category Payer Unknown [id number] Unknown [id number] Summary Purpose Family History No Family History Records Found Advance Directives No Advanced Directives Records Found Additional Source Comments (unrecognized sect ion and content) No Status Records Found INFORMATION SOURCE (unrecogn ized section and content) FOR RECORDS PERTAINING TO PATIENTS WHO ARE OR HAVE BEEN ENROLLED IN A CHEMICAL DEPENDENCY/SUBSTANCEABUSE PROGRAM, SOME INFORMATION MAY BE OMITTED. This clinical summary was aggregated from multiple sources. Caution should be exercised in using it in the provision of clinical care. This summary normalizes information from multiple sources, and as a consequence, information in this document may materially change the coding, format and clinical context of patient data. In addition, data may be omitted in some cases. CLINICAL DECISIONS SHOULD BE BASED ON THE PRIMARY CLINICAL RECORDS. [facility] [facility]. provides no warranty or guarantee of the accuracy or completeness of information in this document.
== END | disposition home or self-care (01) ==
LOC: CT 06:45
PROVIDERS: PCP Family Medicine; Referring Provider Family Medicine; Visit Provider Family Medicine
DX: R10.12 Left upper quadrant pain (principal); Z87.442 Personal history of urinary calculi
CPT/HCPCS: 74176

== ENCOUNTER → 2023-08-04 | Outpatient (CLI) | payer BC, SELFPAY ==
[2023-08-04 09:38] LABS: Absolute Lymphocyte Count 2.01 X10^3/uL (0.83-4.51); Absolute Neutrophil Count 1.5 X10^3/uL (2.0-7.7); Basophil# 0.03 X10^3/uL; Basophil% 0.7 % (0-1); Eosinophil# 0.11 X10^3/uL; Eosinophils% 2.6 % (0-5); Hematocrit 40.3 % (40-54); Hemoglobin 13.7 g/dL (13.0-16.5); Lymphocyte # 2.01 X10^3/ul (0.83-4.51); Lymphocyte % 48.1 % (19-41); Mean Corpuscular Hgb 31.8 pg (27.0-32.0); Mean Corpuscular Volume 93.5 fL (80-94); Mean Platelet Vol. 9.6 fl (6.2-12.0); Monocyte# 0.52 X10^3/uL; Monocyte% 12.4 % (0-10); NRBC Flagged by Analyzer 0 % (0-5); Neutrophil # 1.51 X10^3/uL (2.7-7.7); Neutrophil % 36.2 % (47-70); Platelet Count 241 K/mm3 (150-450); RBC Distribution Width CV 12.7 % (11.6-14.6); RBC Distribution Width SD 43.6 fl (35.1-43.9); Red Blood Count 4.31 M/mm3 (4.6-6.2); White Blood Count 4.2 K/mm3 (4.4-11.0)
--- OUTSIDE RECORDS SUMMARY | 2023-08-04 10:02 | XMS RPT_ITS | CCD ---
Author Name Unknown Address [address] [place] [address] Organization [facility] Care Team Providers Care Equine Intern Name Role Phone Flora Jefferson RN Unavailable Unavailable Daya Palacios Unavailable Daya Palacios Unavailable Allergies Allergy Classification Reported Allergen(s) Allergy Type Date of Onset Reaction(s) Facility (4 sources) doxycycline; Translations: [DOXYCYCLINE] drug allergy 10-31-2012 [facility] Work Phone: (3 sources) meperidine drug allergy 10-31-2012 [facility] Work Phone: (3 sources) promethazine drug allergy 10-31-2012 [facility] Work Phone: (3 sources) ALL CYCLINES drug allergy 11-20-2015 hives [facility] Work Phone: (1 source) Meperidine; Translations: [MEPERIDINE] Drug Allergy 07-03-2013 [facility] Repository Medications Completed/Discontinued Medications Medication Drug Class(es) Dates Sig (Normalized) Sig (Original) ALBUTEROL SULFATE (6 sources) beta2-Adrenergic Agonist Start: 10-31-2012 End: 11-01-2012 PROAIR HFA 108 (90 Base) MCG/ACT AERS three times a day as needed ALBUTEROL SULFATE [id number] Jonnathan Celeste MD Problems Active Problems Problem [...] (Body Mass Index) 28.41 kg/m2 Daya Jasso [employer] [facility] Work Phone: 11-23-2016 08:36-0400 BP Diastolic 60 mm[Hg] Daya [facility] Work Phone: 11-23-2016 08:36-0400 BP Systolic 100 mm[Hg] Daya Jasso [employer] [facility] Work Phone: 11-23-2016 08:36-0400 Height 177.8 cm Daya Jasso [employer] [facility] Work Phone: 11-23-2016 08:36-0400 Pulse (Heart [...] Provider Facility Start: 03-10-2023 End: 03-10-2023 ambulatory [facility] pital Procedures Date Procedure Procedure Detail Performing [...] Jonnathan Celeste MD Start: 11-01-2012 End: 11-01-2012 MANAGER BUILDING Jonnathan Celeste MD Start: 11-01-2012 End: 11-10-2012 Echocardiography Jonnathan Celeste MD Start: 11-01-2012 End: 11-01-2012 Follow Up Appt 1 year Jonnathan Celeste MD Start: 11-01-2012 End: 11-17-2012 Magnesium Jonnathan Celeste MD Start: 11-01-2012 End: 11-17-2012 Thyroid stimulating hormone (TSH) Jonnathan Celeste MD Plan of Treatment Date Care Activity Detail Author Start: 11-23-2017 End: 11-23-2017 Appointment Appointment [facility] Work Phone: Start: 11-23-2016 End: 11-23-2016 Echocardiography Echocardiogram (complete) [facility] Work Phone: Start: 11-23-2016 End: 11-23-2016 Follow Up Appt 1 year Follow Up Appt 1 year [facility] Work Phone: Start: 11-23-2016 End: 11-23-2016 MMM MMM [facility] Work Phone: Start: 11-20-2015 End: 11-23-2016 MANAGER BUILDING MANAGER BUILDING [facility] Work Phone: Start: 11-20-2015 End: 11-23-2016 Follow Up Appt 1 year Follow Up Appt 1 year [facility] Work Phone: Start: 11-15-2014 End: 11-15-2014 MANAGER BUILDING MANAGER BUILDING [facility] Work Phone: Start: 11-15-2014 End: 11-15-2014 Follow Up Appt 1 year Follow Up Appt 1 year [facility] Work Phone: Start: 10-30-2013 End: 10-30-2013 MANAGER BUILDING MANAGER BUILDING [facility] Work Phone: Start: 10-30-2013 End: 10-30-2013 Follow Up Appt 1 year Follow Up Appt 1 year [facility] Work Phone: Start: 11-01-2012 End: 11-17-2012 *BMP *BMP [facility] Work Phone: Start: 11-01-2012 End: 11-01-2012 24 hour holter monitor 24 hour holter monitor [facility] Work Phone: Start: 11-01-2012 End: 11-01-2012 MANAGER BUILDING MANAGER BUILDING [facility] Work Phone: Start: 11-01-2012 End: 11-01-2012 Echocardiography Echocardiogram (complete) [facility] Work Phone: Start: 11-01-2012 End: 11-01-2012 Follow Up Appt 1 year Follow Up Appt 1 year [facility] Work Phone: Start: 11-01-2012 End: 11-17-2012 Magnesium *Magnesium [facility] Work Phone: Start: 11-01-2012 End: 11-17-2012 Thyroid stimulating hormone (TSH) *TSH [facility] Work Phone: Start: 11-01-2012 End: 11-17-2012 Thyroxine (T4) *T4 (Total) [facility] Work Phone: Payers Date Payer Category Payer Unknown [id number] Unknown [id number] Summary Purpose Family History No Family History [...] BE BASED ON THE PRIMARY CLINICAL RECORDS. [employer] [facility]. provides no warranty or guarantee of the accuracy or completeness of information in this document.
[2023-08-04 10:50] LABS: Ferritin 11 ng/mL (26-388); Iron 74 ug/dL (65-175)
[2023-08-04 11:05] LABS: HIV - WCH Non-Reactive (Nonreactive); Syphilis Antibodies Non-reactive
[2023-08-04 12:09] LABS: Hemoglobin A1c 6.6 % (3.8-5.6)
== END | disposition home or self-care (01) ==
LOC: LAB 09:01
PROVIDERS: PCP Family Medicine; Visit Provider Family Medicine
DX: E11.9 Type 2 diabetes mellitus without complications (principal); E83.119 Hemochromatosis, unspecified; Z72.52 High risk homosexual behavior
CPT/HCPCS: 82728; 83036; 83540; 85025; 86703; 86780; 87491; 87591

== ENCOUNTER → 2023-11-02 | Outpatient (CLI) | payer BC, SELFPAY ==
[2023-11-02 10:52] LABS: Absolute Lymphocyte Count 2.49 X10^3/uL (0.83-4.51); Absolute Neutrophil Count 2.8 X10^3/uL (2.0-7.7); Basophil# 0.03 X10^3/uL; Basophil% 0.5 % (0-1); Eosinophil# 0.09 X10^3/uL; Eosinophils% 1.5 % (0-5); Hematocrit 43.3 % (40-54); Hemoglobin 14.3 g/dL (13.0-16.5); Lymphocyte # 2.49 X10^3/ul (0.83-4.51); Lymphocyte % 42.8 % (19-41); Mean Corpuscular Volume 93.9 fL (80-94); Mean Platelet Vol. 9.6 fl (6.2-12.0); Monocyte# 0.42 X10^3/uL; Monocyte% 7.2 % (0-10); NRBC Flagged by Analyzer 0 % (0-5); Neutrophil # 2.77 X10^3/uL (2.7-7.7); Neutrophil % 47.7 % (47-70); Platelet Count 252 K/mm3 (150-450); RBC Distribution Width CV 12.7 % (11.6-14.6); RBC Distribution Width SD 43.7 fl (35.1-43.9); Red Blood Count 4.61 M/mm3 (4.6-6.2); White Blood Count 5.8 K/mm3 (4.4-11.0)
[2023-11-02 12:32] LABS: Ferritin 11 ng/mL (26-388); Iron 92 ug/dL (65-175)
[2023-11-02 17:38] LABS: HIV - WCH Non-Reactive (Nonreactive); Syphilis Antibodies Non-reactive
[2023-11-02 18:12] LABS: Hemoglobin A1c 6.1 % (3.8-5.6)
[2023-11-07 11:07] LABS: Testosterone, % Free 2.73 % (1.50-4.20); Testosterone, Free 12.75 ng/dL (5.00-21.00); Testosterone, Total 467 ng/dL (264-916)
== END | disposition home or self-care (01) ==
PROVIDERS: PCP Family Medicine; Referring Provider Family Medicine; Visit Provider Family Medicine
DX: E11.9 Type 2 diabetes mellitus without complications (principal); E83.119 Hemochromatosis, unspecified; R53.83 Other fatigue; Z72.52 High risk homosexual behavior
CPT/HCPCS: 36415; 82728; 83036; 83540; 84402; 84403; 85025; 86703; 86780; 87491; 87591

== ENCOUNTER → 2023-11-08 | Outpatient (CLI) | payer BC, SELFPAY ==
--- NOTE | 2023-11-08 14:14 | RAD_ITS ---
INDICATION: PAIN/ FALL EXAMINATION/TECHNIQUE: X-RAY - RIGHT XR Wrist Min 3 Views 4 VIEWS COMPARISON: Prior study dated: 01/24/2018 FINDINGS: SOFT TISSUES: Mild diffuse soft tissue swelling. No radiopaque foreign body. BONES/JOINTS: No acute fracture or subluxation.. The carpal rows are well aligned. Chronic nonunited ulnar styloid fracture. Preservation of the joint space.. No sclerotic or destructive changes observed. RAD/Wrist min 3 Views IMPRESSION: No fracture or malalignment. Mild soft tissue swelling. Electronically Signed: Jun Moran MD at 14:38 EDT ,
== END | disposition home or self-care (01) ==
LOC: MTRAD 14:12
PROVIDERS: PCP Family Medicine; Referring Provider Family Medicine; Visit Provider Family Medicine
DX: M25.531 Pain in right wrist (principal)
CPT/HCPCS: 73110

== ENCOUNTER → 2024-03-06 | Outpatient (CLI) | payer BC, SELFPAY ==
[2024-03-06 12:05] LABS: Absolute Lymphocyte Count 2.33 X10^3/uL (0.83-4.51); Absolute Neutrophil Count 1.2 X10^3/uL (2.0-7.7); Basophil# 0.03 X10^3/uL; Basophil% 0.7 % (0-1); Eosinophil# 0.35 X10^3/uL; Eosinophils% 8.1 % (0-5); Hematocrit 40.5 % (40-54); Hemoglobin 13.5 g/dL (13.0-16.5); Lymphocyte # 2.33 X10^3/ul (0.83-4.51); Lymphocyte % 53.7 % (19-41); Mean Corp Hgb Conc 33.3 g/dL (32-36); Mean Corpuscular Hgb 31.5 pg (27.0-32.0); Mean Corpuscular Volume 94.4 fL (80-94); Monocyte# 0.45 X10^3/uL; Monocyte% 10.4 % (0-10); NRBC Flagged by Analyzer 0 % (0-5); Neutrophil # 1.17 X10^3/uL (2.7-7.7); Neutrophil % 26.9 % (47-70); Platelet Count 243 K/mm3 (150-450); RBC Distribution Width SD 44.4 fl (35.1-43.9); Red Blood Count 4.29 M/mm3 (4.6-6.2); White Blood Count 4.3 K/mm3 (4.4-11.0)
[2024-03-06 12:52] LABS: Ferritin 8 ng/mL (26-388); Iron 44 ug/dL (65-175)
[2024-03-06 13:08] LABS: HIV - WCH Non-Reactive (Nonreactive); Syphilis Antibodies Non-reactive
[2024-03-06 14:30] LABS: Hemoglobin A1c 6.3 % (3.8-5.6)
== END | disposition home or self-care (01) ==
LOC: BFHLAB 09:01
PROVIDERS: PCP Family Medicine; Referring Provider Family Medicine; Visit Provider Family Medicine
DX: E11.9 Type 2 diabetes mellitus without complications (principal); E83.119 Hemochromatosis, unspecified; Z72.52 High risk homosexual behavior
CPT/HCPCS: 36415; 82728; 83036; 83540; 85025; 86703; 86780; 87491; 87591

== ENCOUNTER → 2024-04-30 | Outpatient (CLI) | payer BC, SELFPAY ==
[2024-04-30 12:17] LABS: Absolute Lymphocyte Count 1.97 X10^3/uL (0.83-4.51); Absolute Neutrophil Count 1.1 X10^3/uL (2.0-7.7); Basophil# 0.02 X10^3/uL; Basophil% 0.5 % (0-1); Eosinophil# 0.33 X10^3/uL; Eosinophils% 8.6 % (0-5); Hematocrit 40.6 % (40-54); Hemoglobin 13.4 g/dL (13.0-16.5); Lymphocyte # 1.97 X10^3/ul (0.83-4.51); Lymphocyte % 51.4 % (19-41); Mean Corpuscular Hgb 31.3 pg (27.0-32.0); Mean Corpuscular Volume 94.9 fL (80-94); Mean Platelet Vol. 9.9 fl (6.2-12.0); Monocyte# 0.39 X10^3/uL; Monocyte% 10.2 % (0-10); NRBC Flagged by Analyzer 0 % (0-5); Neutrophil # 1.11 X10^3/uL (2.7-7.7); Platelet Count 223 K/mm3 (150-450); RBC Distribution Width SD 45.1 fl (35.1-43.9); Red Blood Count 4.28 M/mm3 (4.6-6.2); White Blood Count 3.8 K/mm3 (4.4-11.0)
[2024-04-30 13:00] LABS: HIV - WCH Non-Reactive (Nonreactive); Syphilis Antibodies Non-reactive
[2024-04-30 13:41] LABS: ALB/GLOB Ratio 1.4 RATIO (0.9-2.4); AST(SGOT) 10 U/L (15-37); Alanine Aminotransfer ALT/SGPT 16 U/L (16-61); Albumin, Serum 4.3 g/dL (3.2-5.0); Alkaline Phosphatase 63 U/L (45-117); Anion Gap 5 (5-15); BUN 15 mg/dL (7-18); BUN/Creat Ratio 12.2 RATIO (10-20); Calcium,Total 9.1 mg/dL (8.5-10.1); Chloride 108 mmol/L (98-107); Creatinine, Serum 1.23 mg/dL (0.70-1.30); EST Glomerular Filtration Rate 65 mL/min (>60); Est Glom Filt Rate - Afr Amer 78 mL/min (>60); Ferritin 8 ng/mL (26-388); Globulin 3.1 g/dL (2.2-4.2); Glucose 134 mg/dL (74-106); Iron 61 ug/dL (65-175); PSA,Total - Annual Screen 2.42 ng/mL (0.00-4.00); Potassium 3.9 mmol/L (3.5-5.1); Protein, Total 7.4 g/dL (6.4-8.2); Sodium Level 139 mmol/L (136-145)
[2024-04-30 15:10] LABS: Hemoglobin A1c 6.3 % (3.8-5.6)
[2024-05-01 09:36] LABS: Cholesterol 116 mg/dL (200); High Density Lipoprotein 44 mg/dL; Triglycerides 69 mg/dL; Very Low Density Lipoprotein 14 mg/dL (5-40)
== END | disposition home or self-care (01) ==
LOC: LAB.FUTURE 09:02
PROVIDERS: PCP Family Medicine; Referring Provider Family Medicine; Visit Provider Family Medicine
DX: E11.9 Type 2 diabetes mellitus without complications (principal); E83.119 Hemochromatosis, unspecified; E78.5 Hyperlipidemia, unspecified; Z12.5 Encounter for screening for malignant neoplasm of prostate; Z72.52 High risk homosexual behavior
CPT/HCPCS: 36415; 80053; 80061; 82728; 83036; 83540; 84153; 85025; 86703; 86780; 87491; 87591; G0103

== ENCOUNTER → 2024-08-23 | Outpatient (CLI) | payer BC, SELFPAY ==
[2024-08-23 12:14] LABS: Absolute Lymphocyte Count 2.16 X10^3/uL (0.83-4.51); Absolute Neutrophil Count 1.4 X10^3/uL (2.0-7.7); Basophil# 0.02 X10^3/uL; Basophil% 0.5 % (0-1); Eosinophil# 0.21 X10^3/uL; Hematocrit 40.6 % (40-54); Hemoglobin 13.8 g/dL (13.0-16.5); Lymphocyte # 2.16 X10^3/ul (0.83-4.51); Lymphocyte % 50.9 % (19-41); Mean Corpuscular Hgb 31.4 pg (27.0-32.0); Mean Corpuscular Volume 92.5 fL (80-94); Mean Platelet Vol. 9.8 fl (6.2-12.0); Monocyte# 0.44 X10^3/uL; Monocyte% 10.4 % (0-10); NRBC Flagged by Analyzer 0 % (0-5); Platelet Count 248 K/mm3 (150-450); RBC Distribution Width CV 12.7 % (11.6-14.6); RBC Distribution Width SD 43.4 fl (35.1-43.9); Red Blood Count 4.39 M/mm3 (4.6-6.2); White Blood Count 4.2 K/mm3 (4.4-11.0)
[2024-08-23 12:29] LABS: Hemoglobin A1c 6.8 % (<=5.6)
[2024-08-23 12:53] LABS: ALB/GLOB Ratio 1.8 RATIO (0.9-2.4); AST(SGOT) 13 U/L (<=37); Alanine Aminotransfer ALT/SGPT 13 U/L (<=46); Albumin, Serum 4.7 g/dL (3.5-5.0); Alkaline Phosphatase 58 U/L (40-129); Anion Gap 15 (5-15); BUN 20 mg/dL (4-19); BUN/Creat Ratio 15.9 RATIO (10-20); Calcium,Total 9.5 mg/dL (7.6-11.0); Carbon Dioxide 21.3 mmol/L (21.0-32.0); Chloride 101 mmol/L (98-108); Cholesterol 141 mg/dL (<=200); Creatinine, Serum 1.26 mg/dL (0.70-1.20); EST Glomerular Filtration Rate 67 (>60); Ferritin 13 ng/mL (37-417); Globulin 2.6 g/dL (2.2-4.2); Glucose 131 mg/dL (70-99); HIV Nonreactive (Nonreactive); High Density Lipoprotein 44 mg/dL; Low Density Lipoprotein Calc. 79 mg/dL; Potassium 4.6 mmol/L (3.3-5.1); Protein, Total 7.3 g/dL (5.9-8.4); Sodium Level 137 mmol/L (133-145); Total Bilirubin 0.52 mg/dL (0.00-1.30); Triglycerides 89 mg/dL; Very Low Density Lipoprotein 18 mg/dL (5-40)
[2024-08-23 15:05] LABS: Iron 65 ug/dL (65-175)
[2024-08-23 23:50] LABS: Syphilis Antibodies Nonreactive (Nonreactive)
== END | disposition home or self-care (01) ==
LOC: BFHLAB 08:35
PROVIDERS: PCP Family Medicine; Referring Provider Family Medicine; Visit Provider Family Medicine
DX: E11.9 Type 2 diabetes mellitus without complications (principal); E83.119 Hemochromatosis, unspecified; E78.5 Hyperlipidemia, unspecified; Z72.52 High risk homosexual behavior; Z12.5 Encounter for screening for malignant neoplasm of prostate
CPT/HCPCS: 36415; 80053; 80061; 82728; 83036; 83540; 85025; 86703; 86780; 87491; 87591

== ENCOUNTER → 2024-10-30 | Outpatient (CLI) | payer BC, SELFPAY ==
[2024-10-30 12:17] LABS: Absolute Lymphocyte Count 2.08 X10^3/uL (0.83-4.51); Absolute Neutrophil Count 1.3 X10^3/uL (2.0-7.7); Basophil# 0.02 X10^3/uL; Basophil% 0.5 % (0-1); Eosinophil# 0.18 X10^3/uL; Eosinophils% 4.5 % (0-5); Hematocrit 38.6 % (40-54); Hemoglobin 13.2 g/dL (13.0-16.5); Lymphocyte # 2.08 X10^3/ul (0.83-4.51); Lymphocyte % 52.5 % (19-41); Mean Corp Hgb Conc 34.2 g/dL (32-36); Mean Corpuscular Hgb 31.7 pg (27.0-32.0); Mean Corpuscular Volume 92.6 fL (80-94); Mean Platelet Vol. 9.9 fl (6.2-12.0); Monocyte# 0.37 X10^3/uL; Monocyte% 9.3 % (0-10); NRBC Flagged by Analyzer 0 % (0-5); Neutrophil # 1.31 X10^3/uL (2.7-7.7); Neutrophil % 33.2 % (47-70); Platelet Count 218 K/mm3 (150-450); RBC Distribution Width CV 13.2 % (11.6-14.6); RBC Distribution Width SD 44.7 fl (35.1-43.9); Red Blood Count 4.17 M/mm3 (4.6-6.2)
[2024-10-30 12:56] LABS: Hemoglobin A1c 6.4 % (<=5.6)
[2024-10-30 13:31] LABS: ALB/GLOB Ratio 1.7 RATIO (0.9-2.4); AST(SGOT) 17 U/L (<=37); Alanine Aminotransfer ALT/SGPT 15 U/L (<=46); Albumin, Serum 4.5 g/dL (3.5-5.0); Alkaline Phosphatase 60 U/L (40-129); Anion Gap 15 (5-15); BUN 18 mg/dL (4-19); BUN/Creat Ratio 16.2 RATIO (10-20); Calcium,Total 9.5 mg/dL (7.6-11.0); Chloride 101 mmol/L (98-108); Cholesterol 125 mg/dL (<=200); Creatinine, Serum 1.13 mg/dL (0.70-1.20); EST Glomerular Filtration Rate 76 (>60); Ferritin 14 ng/mL (37-417); Globulin 2.6 g/dL (2.2-4.2); Glucose 124 mg/dL (70-99); HIV Nonreactive (Nonreactive); High Density Lipoprotein 38 mg/dL; Low Density Lipoprotein Calc. 67 mg/dL; Potassium 4.1 mmol/L (3.3-5.1); Protein, Total 7.1 g/dL (5.9-8.4); Sodium Level 139 mmol/L (133-145); Syphilis Antibodies Nonreactive (Nonreactive); Total Bilirubin 0.33 mg/dL (0.00-1.30); Triglycerides 100 mg/dL; Very Low Density Lipoprotein 20 mg/dL (5-40); cholesterol:hdl ratio screen 3.28
[2024-10-30 13:53] LABS: Iron 47 ug/dL (65-175)
== END | disposition home or self-care (01) ==
LOC: MTLAB 08:39
PROVIDERS: PCP Family Medicine; Referring Provider Family Medicine; Visit Provider Family Medicine
DX: Z20.9 Contact with and (suspected) exposure to unspecified communicable disease (principal); E11.9 Type 2 diabetes mellitus without complications; E83.119 Hemochromatosis, unspecified
CPT/HCPCS: 36415; 80053; 80061; 82728; 83036; 83540; 85025; 86703; 86780; 87491; 87591

== ENCOUNTER → 2024-11-01 | Outpatient (CLI) | payer BC, SELFPAY | END | disposition home or self-care (01) | LOC: LABSPEC 15:15 | PROVIDERS: PCP Family Medicine; Referring Provider Otolaryngology Otolaryngology/Facial Plastic Surgery; Visit Provider Otolaryngology Otolaryngology/Facial Plastic Surgery | DX: J32.9 Chronic sinusitis, unspecified (principal) | CPT/HCPCS: 87070; 87186; 87205 ==

== ENCOUNTER → 2024-11-12 | Outpatient (CLI) | payer BC, SELFPAY ==
--- NOTE | 2024-11-12 12:50 | RAD_ITS ---
PROCEDURE: CHEST PA AND LATERAL 11/12/2024 REASON FOR EXAM: COUGH TECHNIQUE: Frontal and lateral views of the chest. FINDINGS: Hardware: None. Heart: Normal size. Mediastinum: Normal contour and appearance. Lungs: Clear. No pleural effusions. No pneumothorax. Bones: No aggressive lesion. RAD/Chest PA and Lateral IMPRESSION: No acute process detected. Reading [facility]
--- OUTSIDE RECORDS SUMMARY | 2024-11-12 23:16 | XMS RPT_ITS | CCD ---
Author Organization [facility] Care Team Providers Care Medical Care Manager Name Role Phone Li COWART, Flora Dupont Unavailable Unavailable Daya Palacios Unavailable Daya Palacios Unavailable Dr. Jacinto Arroyo Primary Care Provider [phone] Dr. 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 Jacinto Arroyo Primary Care Provider [phone] Dr. Jacinto Arroyo Referring Provider [phone] Roof MOTOR VEHICLE LECTURER, MOTOR VEHICLE LECTURER-C Navi Trejo Attending Provider Dr. Jonnathan Celeste Attending Provider Dr. Jacinto Arroyo Primary Care Provider [phone] SHEILA MOONEY Attending Unavailable JACINTO ARROYO Primary Care Unavailable Jacinto Arroyo DO Primary Care Provider WANDA GARCIAS Referring Unavailable JACINTO ARROYO Primary Care Unavailable SIMRAN GARCIASNDRIA Attending Unavailable JACINTO ARROYO Primary Care Unavailable JACINTO ARROYO Primary Care Unavailable SIMRAN GARCIASNDRIA Referring Unavailable Dr. Jacinto Arroyo DO Primary Care Provider Dr. Jacinto Arroyo DO Referring Provider [phone] Dr. Jonnathan Celeste MD Attending Provider [phone] Jacinto Arroyo DO Attending Provider [phone] Dr. Jacinto Arroyo DO Primary Care Provider [phone] Dr. Jacinto Arroyo DO Referring Provider John Paul BARRERA, Dr. Kg Gottlieb Attending Provider Dr. Kg Coker MD Referring Provider [phone] Jacinto Arroyo Attending Unavailable Cruz, Jacinto Referring Unavailable Cruz, Jacinto Primary Care Unavailable Cruz, Jacinto Attending Unavailable Cruz, Jacinto Referring Unavailable Cruz, Jacinto Primary Care Unavailable Cruz, Jacinto Referring Unavailable Roula, Jonnathan Attending Unavailable Cruz, Jacinto Primary Care Unavailable Cruz, Jacinto Referring Unavailable Cruz, Jacinto Primary Care Unavailable Cruz, Jacinto Attending Unavailable Cruz, Jacinto Referring Unavailable Cruz, Jacinto Primary Care Unavailable Cruz, Jacinto Attending Unavailable Cruz, Jacinto Primary Care Unavailable Cruz, Jacinto Attending Unavailable Kg Coker Attending Unavailable Kg Coker Referring Unavailable Cruz, Jacinto Primary Care Unavailable Cruz, Jacinto Referring Unavailable Cruz, Jacinto Primary Care Unavailable Cruz, Jacinto Attending Unavailable Allergies Allergy Classification Reported Allergen(s) Allergy Type Date of Onset Reaction(s) Facility (18 sources) doxycycline; Translations: [DOXYCYCLINE] drug allergy [address] [facility] Work Phone: (3 sources) meperidine drug allergy 3 [facility] Work Phone: (3 sources) promethazine drug allergy 3 [facility] Work Phone: (3 sources) ALL CYCLINES drug allergy 6 [facility] Work Phone: (17 sources) Meperidine; Translations: [MEPERIDINE] Drug Allergy 4 [facility] (16 sources) Promethazine; Translations: [PROMETHAZINE] Drug Allergy 4 Other: [facility] (3 sources) CYCLINE'S Allergy to substance 1 [facility] (7 sources) Tetracycline Drug Allergy 3 [facility] (1 source) Meperidine Drug Allergy 4 [facility] (1 source) Promethazine Drug Allergy 4 [facility] (1 source) Tetracycline Drug Allergy 4 [facility] Medications Current Medications Medication Drug Class(es) Dates Sig (Normalized) Sig (Original) atorvastatin 20 mg oral tablet (10 sources) HMG-CoA Reductase Inhibitor Start: 12-04-2020 take 1 tablet by mouth at bedtime Atorvastatin 20 mg tablet Active 20 mg PO AT BEDTIME December 04, 2020 12:00am canagliflozin 300 mg oral tablet (9 sources) Sodium-Glucose Cotransporter 2 Inhibitor Start: 12-30-2021 take 1 tablet by mouth once daily Canagliflozin (Invokana) 300 mg tablet Active 300 mg PO DAILY December 30, 2021 12:00am cetirizine hydrochloride 10 mg oral tablet (20 sources) Histamine-1 Receptor Antagonist Start: 03-28-2023 take 1 tablet by mouth once daily as needed Cetirizine (Allergy Relief (Cetirizine)) 10 mg tablet Active 10 mg PO DAILY as needed March 28, 2023 12:00am Start: 09-15-2018 End: 03-18-2019 take 1 capsule by mouth once daily Cetirizine 10 MG capsule Discontinued 10 mg PO DAILY September 15, 2018 12:00am March 18, 2019 8:45am Start: 10-30-2013 take 1 tablet by tania th once daily ZYRTEC ALLERGY 10 MG TABS One tablet by mouth daily CETIRIZINE HCL [id number] Jonnathan Celeste MD emtricitabine 100 mg / tenofovir disoproxil fumarate 150 mg oral tablet (20 sources) Human Immunodeficiency Virus Nucleoside Analog Reverse Transcriptase Inhibitor Start: 12-04-2020 take 1 tablet by mouth once daily Emtricitabine-Tenofovir (Tdf) (Truvada) 100-150 mg tablet Active 1 {tbl} PO DAILY December 04, 2020 8:59am Start: 12-04-2019 End: 12-04-2020 Emtricitabine-Tenofovir (Tdf ) (Truvada) 100-150 mg tablet Discontinued 1 {tbl} PO December 04, 2019 12:00am December 04, 2020 9:01am 24 hr metFORMIN hydrochloride 500 mg extended release oral tablet (17 sources) Biguanide Start: 09-18-2016 take 2 tablets by mouth twice daily Metformin 500 MG tablet Active 1000 mg PO TWICE A DAY September 18, 2016 12:00am Start: 09-18-2016 take 1000 mg by mout h twice daily Metformin Active 1000 MG PO TWICE A DAY September 17, 2016 11:00pm Start: 10-31-2012 take 1 tablet by tania th twice daily METFORMIN HCL 500 MG TABS One tablet by mouth twice daily METFORMIN HCL [id number] Flora Jefferson RN take 1 tablet by tania th once daily metFORMIN 500 mg tablet Take 500 mg by mouth once daily. 0 Active pantoprazole 40 mg delayed release oral tablet (20 sources) Proton Pump Inhibitor Start: 09-18-2016 End: 03-18-2019 take 1 tablet by mouth once daily Pantoprazole 40 mg tablet,delayed release (DR/EC) Active 40 mg PO DAILY March 18, 2019 8:45am Start: 10-31-2012 take 1 tablet by tania th once daily PROTONIX 40 MG SOLR One tablet by mouth daily PANTOPRAZOLE SODIUM [id number] Flora Jefferson RN Semaglutide (3 sources) Start: 05-24-2024 Semaglutide (O zempic) 0.25 mg or 0.5 mg (2 mg/3 mL) pen injector Active 0.25 mg SC May 24, 2024 1:00am Completed/Discontinued Medications Medication Drug Class(es) Dates Sig (Normalized) Sig (Original) acetaminophen 325 mg / HYDROcodone bitartrate 5 mg oral tablet (10 sources) Opioid Agonist Start: 09-20-2018 End: 09-25-2018 Hydrocodone-Acetami nophen 1 TABLET tablet Discontinued 1 - 2 {tbl} PO EVERY 6 HOURS NEEDED as needed for Pain 23 10September 20, 2018 12:00am September 24, 2018 12:00am September 25, 2018 12:09am Start: 09-20-2018 End: 09-25-2018 take 1 tablet by mouth every six hours as needed Hydrocodone-Acetaminophen Discontinued 1 - 2 TABLET PO EVERY 6 HOURS NEEDED 23 10September 19, 2018 11:00pm September 24, 2018 11:09pm [id number] 200 actuat albuterol 0.09 mg/actuat metered dose inhaler (16 sources) beta2-Adrenergic Agonist Start: 03-18-2019 End: 12-04-2019 Albuterol Sulfate 90 mcg/actuation HFA aerosol inhaler Discontinued 2 NMA INHALATION EVERY 6 HOURS as needed for shortness of breath 6.7 March 18, 2019 12:00am December 04, 2019 9:05am Start: 03-18-2019 End: 12-04-2019 take 1 puff(s) by inhalation every six hours Albuterol Sulfate Discontinued 2 PUFF INHALATION EVERY 6 HOURS 6.7 March 17, 2019 11:00pm December 04, 2019 8:05am Start: 10-31-2012 End: 11-01-2012 PROAIR HFA 108 (90 Base) MCG /ACT AERS three times a day as needed ALBUTEROL SULFATE [id number] Jonnathan Celeste MD Start: 10-31-2012 PROAIR HFA 108 (90 Base) MCG/ACT AERS three times a day as needed ALBUTEROL SULFATE [id number] Flora Jefferson RN amoxicillin 875 mg / clavulanate 125 mg oral tablet (10 sources) Penicillin-class Antibacterial Start: 03-18-2019 End: 03-28-2019 Amoxicillin-Pot Clavulanate (Augmentin) 875-125 mg tablet Discontinued 1 {tbl} PO TWICE A DAY 20 March 18, 2019 12:00am March 27, 2019 12:00am March 28, 2019 12:07am benzonatate 100 mg oral capsule (10 sources) Non-narcotic Antitussive Start: 03-18-2019 End: 12-04-2019 take 1 capsule by mouth three times daily as needed for cough Benzonatate (Tessalon Perles) 100 mg capsule Discontinued 100 mg PO THREE TIMES A DAY as needed for cough March 18, 2019 12:00am December 04, 2019 9:04am cholecalciferol 2000 unt oral tablet (3 sources) Vitamin D Start: 11-01-2012 take 1 tablet by mouth once daily VITAMIN D 2000 UNIT TABS One tablet by mouth daily CHOLECALCIFEROL [id number] Jonnathan Celeste MD ergocalciferol 15475 unt oral tablet (3 sources) Provitamin D2 Compound Start: 10-31-2012 take 1 capsule by mouth every week VITAMIN D (ERGOCALCIFEROL) 79459 UNIT CAPS 1 capsule by mouth weekly ERGOCALCIFEROL [id number] Flora Jefferson RN fexofenadine hydrochloride 180 mg oral tablet (9 sources) Histamine-1 Receptor Antagonist Start: 11-01-2012 End: 10-30-2013 take 1 tablet by mouth once daily FEXOFENADINE HCL 180 MG TABS One tablet by mouth daily FEXOFENADINE HCL [id number] Jonnathan Celeste MD fluticasone propionate 0.05 mg/actuat metered dose nasal spray (10 sources) Corticosteroid Start: 09-15-2018 End: 03-18-2019 Fluticasone Propionate 1 SPRAY spray,suspension Discontinued 1 NMA NASAL DAILY September 15, 2018 12:00am March 18, 2019 8:45am Start: 09-15-2018 End: 03-18-2019 Fluticasone Propionate Disco ntinued 1 SPRAY NASAL DAILY September 14, 2018 11:00pm March 18, 2019 7:45am guaiFENesin / pseudoephedrine (3 sources) alpha-Adrenergic Agonist Start: 11-01-2012 SUDAFED PE NON-DRYING SINUS 5-200 MG TABS as needed PHENYLEPHRINE-GUAIFENESIN [id number] Jonnathan Celeste MD 3 ml liraglutide 6 mg/ml pen injector (20 sources) GLP-1 Receptor Agonist Start: 09-18-2016 End: 05-24-2024 Liraglutide 0.6 mg/0.1 mL (1 8 mg/3 mL) pen injector Discontinued 1.8 mg SC DAILY March 18, 2019 8:45am May 24, 2024 2:34pm Start: 10-30-2013 take 1.8 mg by subcu taneous injection once daily VICTOZA SOPN 1.8mg SQ once a day LIRAGLUTIDE SOLN [id number] Jonnathan Celeste MD Start: 10-30-2013 VICTOZA SOPN 1 .8mg, 0.6 mg SQ once a day LIRAGLUTIDE SOLN [id number] Jonnathan Celeste MD liraglutide (WALTER TOZA 3-TOD) 0.6 mg/0.1 mL (18 mg/3 mL) pnij Inject 0.6 mg subcutaneously once daily. 0 Active Multivitamin 1 EACH tablet (3 sources) Start: 09-15-2018 End: 03-18-2019 Multivitamin 1 EACH tablet Discontinued 1 NMA PO DAILY September 15, 2018 12:00am March 18, 2019 8:45am Multivitamin preparation (7 sources) Start: 09-15-2018 End: 03-18-2019 Multivitamin Discontinued 1 EACH PO DAILY September 14, 2018 11:00pm March 18, 2019 7:45am Start: 09-15-2018 End: 03-18-2019 Multivitamin Discontinued 1 EACH PO DAILY September 15, 2018 12:00am March 18, 2019 8:45am 12 hr pseudoephedrine hydrochloride 120 mg extended release oral tablet (14 sources) alpha-Adrenergic Agonist Start: 09-15-2018 End: 05-24-2024 Pseudoephedrine Hcl 120 MG tablet extended release Discontinued 120 mg PO NEEDED as needed for Allergies September 15, 2018 12:00am May 24, 2024 2:35pm PSEUDOEPHEDRINE HCL (SUDAFED ORAL) Take by mouth as needed. 0 Active rosuvastatin calcium 10 mg oral tablet (6 sources) HMG-CoA Reductase Inhibitor Start: 10-31-2012 End: 11-01-2012 take 1 tablet by mouth at bedtime CRESTOR 10 MG TABS One tablet by mouth at bedtime. ROSUVASTATIN CALCIUM [id number] Jonnathan Celeste MD vitamin e 180 mg oral capsule (17 sources) Start: 09-15-2018 End: 03-18-2019 Vitamin E Mixed 400 UNIT capsule Discontinued 400 U PO TWICE A DAY September 15, 2018 12:00am March 18, 2019 8:45am Start: 10-30-2013 take 1 tablet by tania th twice daily VITAMIN E 400 UNIT CAPS One tablet by mouth twice daily VITAMIN E [id number] Jonnathan Celeste MD Start: 08-21-2013 alpha tocopher yl acetate 400 unit capsule must be the d form, not the dl form 120 capsule 5 08/21/2013 Active Problems Active Problems Problem Classification Problem Date Documented Date Episodic/Chronic Calculus of urinary tract (10 sources) Urolithiasis ; Translations: [Urinary calculus, unspecified] 09-19-2016 Episodic Cardiac and circulatory congenital anomalies (17 sources) Bicuspid aortic valve; Translations: [Congenital insufficiency of aortic valve] Onset: 10-31-2012 10-31-2012 Chronic Cardiac dysrhythmias (13 sources) Palpitations; Translations: [Palpitations] Onset: 11-01-2012 11-01-2012 Episodic Chronic obstructive pulmonary disease and bronchiectasis (10 sources) Bronchitis; Translations: [Bronchitis, not specified as acute or chronic] 12-01-2019 Episodic Diabetes mellitus without complication (5 sources) Diabetes mellitus; Translations: [Type 2 diabetes mellitus without complications] Onset: 10-31-2012 10-31-2012 Chronic Disorders of lipid metabolism (18 sources) Hyperlipidemia; Translations: [Hyperlipidemia, unspecified] Onset: 10-31-2012 10-31-2012 Chronic Fracture of upper limb (2 sources) Unspecified fracture of navicular [scaphoid] bone of right wrist, initial encounter for closed fracture; Translations: [Closed fracture scaphoid, proximal pole ] Onset: 11-03-2023 11-09-2023 Episodic Heart valve disorders (3 sources) Nonrheumatic aortic (valve) insufficiency; Translations: [Nonrheumatic aortic (valve) insufficiency] Onset: 11-20-2015 11-20-2015 Chronic Hepatitis (11 sources) Nonalcoholic steatohepatitis; Translations: [Nonalcoholic steatohepatitis (EVANS)] Onset: 11-06-2024 12-03-2020 Chronic Immunizations and screening for infectious disease (2 sources) Contact with and (suspected) exposure to unspecified communicable disease; Translations: [Contact with and (suspected) exposure to unspecified communicable disease] Onset: 11-05-2024 Episodic Other and ill-defined heart disease (3 sources) Left ventricular hypertrophy; Translations: [Cardiomegaly] Onset: 11-20-2015 11-20-2015 Chronic Other and ill-defined heart disease (10 sources) Cardiomegaly; Translations: [Acquired left ventricular hypertrophy] 12-03-2020 Chronic Other liver diseases (4 sources) Fatty (change of) liver, not elsewhere classified; Translations: [Other chronic nonalcoholic liver disease] Onset: 08-03-2013 08-03-2013 Chronic Other nervous system disorders (6 sources) Carpal tunnel syndrome; Translations: [Carpal tunnel syndrome, right upper limb] 11-28-2018 Chronic Other nervous system disorders (4 sources) Carpal tunnel syndrome of right wrist; Translations: [Carpal tunnel syndrome, right upper limb] 11-28-2018 Chronic Other non-traumatic joint disorders (1 source) Pain in unspecified wrist; Translations: [Wrist pain] Onset: 11-03-2023 Episodic Other non-traumatic joint disorders (3 sources) Pain of right wrist; Translations: [Pain in right wrist] 11-09-2023 Episodic Other nutritional; endocrine; and metabolic disorders (17 sources) Hemochromatosis; Translations: [Hereditary hemochromatosis] Onset: 05-28-2013 05-28-2013 Chronic Other nutritional; endocrine; and metabolic disorders (4 sources) Hemochromatosis, unspecified; Translations: [Other hemochromatosis] Onset: 11-06-2024 03-28-2023 Chronic Other upper respiratory infections (11 sources) Sinusitis; Translations: [Chronic sinusitis, unspecified] Onset: 11-06-2024 12-01-2019 Chronic Sprains and strains (1 source) Unspecified sprain of unspecified wrist, initial encounter; Translations: [Sprain of wrist, unspecified laterality, initial encounter] Onset: 11-03-2023 Episodic Past or Other Problems Problem Classification Problem Date Documented Da te Episodic/Chronic Nonspecific chest pain (6 sources) Chest pain, unspecified; Translations: [Chest pain, unspecified] Onset: 11-01-2012 Resolved: 11-19-2015 11-19-2015 Episodic Other non-traumatic joint disorders (3 sources) Pain in right wrist; Translations: [Right wrist pain] Onset: 11-09-2023 Episodic Unclassified (3 sources) Family history of ischemic heart disease and other diseases of the circulatory system; Translations: [Family history of ischemic heart disease and other diseases of the circulatory system] 11-15-2014 Episodic Results Test Name Value Interpretation Reference Range Facility Nasopharyngeal Cultureon NAC Staphylococcus epidermidis Amount Growth 3+ Staphylococcus epidermidis: REACTION cefOXitin Susc Islt Doxycycline Islt ZIA 1 S Clindamycin Islt ZIA >=4 R Clindamycin.induce d Susc Islt NEG Erythromycin Islt ZIA >=8 R Gentamicin Islt ZIA <=0.5 S Linezolid Islt ZIA 2 S Oxacillin Susc Islt >=4 R Tetracycline Islt ZIA 2 S TMP SMX Islt ZIA >=320 R Vancomycin Islt ZIA 1 S Normal [facility] Comment on above: Performed By: #### L 501.9985, L509.8002, L100.0100, M8200.2203, L3890.6006, L500.4050, L500.4100, L503.6150, L503.6550 #### [facility] [address] [place], [place], [id number] Gram Stainon 11-02-2024 GS Positive Normal [facility] Comment on above: Performed By: #### L 501.9985, L509.8002, L100.0100, M8200.2203, L3890.6006, L500.4050, L500.4100, L503.6150, L503.6550 #### [facility] [address] [place], [place], [id number] Gram stainOrdered By: Kg anderson on 11-01-2024 Microscopic observation Gram stain Nom (Unsp spec) [facility] Nasopharyngeal cultureOrdere d By: Kg Coker on 11-01-2024 Respiratory microbial culture Staphylococcus epidermidis Abnormal [facility] Absolute lymphocyte countOrd ered By: Jacinto Arrooy on 10-30-2024 Lymphocytes Auto (Unsp spec) [#/Vol] 2.08 10*3/uL 0.83-4.51 [facility] Absolute neutrophil countOrd ered By: Jacinto Arroyo on 10-30-2024 Neutrophils (Bld) [#/Vol] 1.3 10*3/uL Low 2.0-7.7 [facility] Anion gap in Serum or Plasma Ordered By: Jacinto Arroyo on 10-30-2024 Anion gap [Moles/Vol] 15 mmol/L 5-15 [facility] Automated lymphocyte count a s percentage of total leukocytesOrdered By: Jacinto Arroyo on 10-30-2024 Lymphocytes/100 WBC Auto (Unsp spec) 52.5 % High 19-41 [facility] BUN/creatinine ratioOrdered By: Jacinto Arroyo on 10-30-2024 Urea nitrogen/Creatinine [Mass ratio] 16.2 mg/mg 10-20 [facility] Basophil percentageOrdered B y: Jacinto Arroyo on 10-30-2024 Basophils/100 WBC (Bld) 0.5 % 0-[address] [facility] Bilirubin, totalOrdered By: Jacinto Arroyo on 10-30-2024 Bilirubin [Mass/Vol] 0.33 mg/dL 0.00-1.30 [facility] CBC W/Diff, Automatedon 10-05 Absolute Lymph 2.08 X10 3/uL Normal 0.83-4.51 [facility] Comment on above: Performed By: #### L 501.9985, L509.8002, L100.0100, M8200.2203, L3890.6006, L500.4050, L500.4100, L503.6150, L503.6550 #### [facility] [address] [place], [address] Absolute Neut 1.3 X10 3/uL Low 2.0-7.7 [facility] Comment on above: Performed By: #### L 501.9985, L509.8002, L100.0100, M8200.2203, L3890.6006, L500.4050, L500.4100, L503.6150, L503.6550 #### [facility] [address] [place], [address] Basophils/100 WBC (Bld) 0.5 % Normal 0-[address] [facility] Comment on above: Performed By: #### L 501.9985, L509.8002, L100.0100, M8200.2203, L3890.6006, L500.4050, L500.4100, L503.6150, L503.6550 #### [facility] [address] [place], [address] Eosinophils/100 WBC (Bld) 4.5 % Normal 0-5 [facility] Comment on above: Performed By: #### L 501.9985, L509.8002, L100.0100, M8200.2203, L3890.6006, L500.4050, L500.4100, L503.6150, L503.6550 #### [facility] [address] [place], [address] Erythrocyte distribution width (RBC) [Ratio] 13.2 % Normal 11.6-14.6 [facility] Comment on above: Performed By: #### L 501.9985, L509.8002, L100.0100, M8200.2203, L3890.6006, L500.4050, L500.4100, L503.6150, L503.6550 #### [facility] [address] [place], [address] Hematocrit (Bld) [Volume fraction] 38.6 % Low 40-54 [facility] Comment on above: Performed By: #### L 501.9985, L509.8002, L100.0100, M8200.2203, L3890.6006, L500.4050, L500.4100, L503.6150, L503.6550 #### [facility] [address] [place], [address] Hemoglobin (Bld) [Mass/Vol] 13.2 g/dL Normal 13.0-16.5 [facility] Comment on above: Performed By: #### L 501.9985, L509.8002, L100.0100, M8200.2203, L3890.6006, L500.4050, L500.4100, L503.6150, L503.6550 #### [facility] [address] [place], [address] IG% 0.000 Normal 0.0-0.9 [facility] Comment on above: Result Comment: IG% - Immature Granulocytes (promyelocytes, myelocytes and metamyelocytes) > 1% indicates that a LEFT SHIFT is Present. Performed By: #### L 501.9985, L509.8002, L100.0100, M8200.2203, L3890.6006, L500.4050, L500.4100, L503.6150, L503.6550 #### [facility] [address] [place], [address] Lymphocytes/100 WBC (Bld) 52.5 % High 19-41 [facility] Comment on above: Performed By: #### L 501.9985, L509.8002, L100.0100, M8200.2203, L3890.6006, L500.4050, L500.4100, L503.6150, L503.6550 #### [facility] [address] [place], [address] MCH (RBC) [Entitic mass] 31.7 pg Normal 27.0-32.0 [facility] Comment on above: Performed By: #### L 501.9985, L509.8002, L100.0100, M8200.2203, L3890.6006, L500.4050, L500.4100, L503.6150, L503.6550 #### [facility] [address] [place], [address] MCHC (RBC) [Mass/Vol] 34.2 g/dL Normal 32-36 [facility] Comment on above: Performed By: #### L 501.9985, L509.8002, L100.0100, M8200.2203, L3890.6006, L500.4050, L500.4100, L503.6150, L503.6550 #### [facility] [address] [place], [address] MCV (RBC) [Entitic vol] 92.6 fL Normal 80-[address] [facility] Comment on above: Performed By: #### L 501.9985, L509.8002, L100.0100, M8200.2203, L3890.6006, L500.4050, L500.4100, L503.6150, L503.6550 #### [facility] [address] [place], [address] Monocytes/100 WBC (Bld) 9.3 % Normal 0-[address] [facility] Comment on above: Performed By: #### L 501.9985, L509.8002, L100.0100, M8200.2203, L3890.6006, L500.4050, L500.4100, L503.6150, L503.6550 #### [facility] [address] [place], [address] Neutrophils/100 WBC (Bld) 33.2 % Low 47-70 [facility] Comment on above: Performed By: #### L 501.9985, L509.8002, L100.0100, M8200.2203, L3890.6006, L500.4050, L500.4100, L503.6150, L503.6550 #### [facility] [address] [place], [address] Nucleated RBC (Bld) [#/Vol] 0 10*3/uL Normal 0-5 [facility] Comment on above: Performed By: #### L 501.9985, L509.8002, L100.0100, M8200.2203, L3890.6006, L500.4050, L500.4100, L503.6150, L503.6550 #### [facility] [address] [place], [address] Platelet mean volume (Bld) [Entitic vol] 9.9 fL Normal 6.2-12.0 [facility] Comment on above: Performed By: #### L 501.9985, L509.8002, L100.0100, M8200.2203, L3890.6006, L500.4050, L500.4100, L503.6150, L503.6550 #### [facility] [address] [place], [address] Platelets (Bld) [#/Vol] 218 10*3/uL Normal 150-450 [facility] Comment on above: Performed By: #### L 501.9985, L509.8002, L100.0100, M8200.2203, L3890.6006, L500.4050, L500.4100, L503.6150, L503.6550 #### [facility] [address] [place], [address] RBC (Bld) [#/Vol] 4.17 10*6/uL Low 4.6-6.[address] [facility] Comment on above: Performed By: #### L 501.9985, L509.8002, L100.0100, M8200.2203, L3890.6006, L500.4050, L500.4100, L503.6150, L503.6550 #### [facility] [address] [place], [address] RDW SD 44.7 fl High 35.1-43.9 [facility] Comment on above: Performed By: #### L 501.9985, L509.8002, L100.0100, M8200.2203, L3890.6006, L500.4050, L500.4100, L503.6150, L503.6550 #### [facility] [address] [place], [address] WBC (Bld) [#/Vol] 4.0 10*3/uL Low 4.4-11.0 [facility] Comment on above: Performed By: #### L 501.9985, L509.8002, L100.0100, M8200.2203, L3890.6006, L500.4050, L500.4100, L503.6150, L503.6550 #### [facility] [address] [place], [place], [id number] Calculated very low density lipoprotein (VLDL) cholesterol measurementOrdered By: Jacinto Arroyo on 10-30-2024 Calculated very low density lipoprotein (VLDL) cholesterol measurement 20 mg/dL 5-40 [facility] Carbon dioxide, total [Moles /volume] in Central venous bloodOrdered By: Jacinto Arroyo on 10-30-2024 CO2 [Moles/Vol] 23.0 mmol/L 21.0-32.0 [facility] Chlamydia/GC BRISSA aptimaon CHLAMY,NUC ACID Normal [facility] Comment on above: Result Comment: CLAR IFIED ORDER. Performed By: #### L 501.9985, L509.8002, L100.0100, M8200.2203, L3890.6006, L500.4050, L500.4100, L503.6150, L503.6550 #### [facility] [address] [place], [place], [id number] GC BY NUC ACID Normal [facility] Comment on above: Result Comment: CLAR IFIED ORDER. Performed By: #### L 501.9985, L509.8002, L100.0100, M8200.2203, L3890.6006, L500.4050, L500.4100, L503.6150, L503.6550 #### [facility] [address] [place], [address] Chloride assayOrdered By: Miguelito Arroyo on 10-30-2024 Chloride [Moles/Vol] 101 mmol/L 98-108 [facility] Comprehensive Metabolic Prof ilon 10-30-2024 Albumin [Mass/Vol] 4.5 g/dL Normal 3.5-5.0 [facility] Comment on above: Performed By: #### L 501.9985, L509.8002, L100.0100, M8200.2203, L3890.6006, L500.4050, L500.4100, L503.6150, L503.6550 #### [facility] [address] [place], [place], [phone] [phone] Albumin/Globulin [Mass ratio] 1.7 {ratio} Normal 0.9-2.4 [facility] Comment on above: Performed By: #### L 501.9985, L509.8002, L100.0100, M8200.2203, L3890.6006, L500.4050, L500.4100, L503.6150, L503.6550 #### [facility] [address] [place], [address] [phone] ALK PHOS 60 U/L Normal 40-129 [facility] Comment on above: Performed By: #### L 501.9985, L509.8002, L100.0100, M8200.2203, L3890.6006, L500.4050, L500.4100, L503.6150, L503.6550 #### [facility] [address] [place], [place], [id number] ALT [Catalytic activity/Vol] 15 U/L Normal <=46 [facility] Comment on above: Performed By: #### L 501.9985, L509.8002, L100.0100, M8200.2203, L3890.6006, L500.4050, L500.4100, L503.6150, L503.6550 #### [facility] [address] [facility] [address] [place], [address] [phone] AST [Catalytic activity/Vol] 17 U/L Normal <=37 [facility] Comment on above: Performed By: #### L 501.9985, L509.8002, L100.0100, M8200.2203, L3890.6006, L500.4050, L500.4100, L503.6150, L503.6550 #### [facility] [address] [place], [address] Bilirubin [Mass/Vol] 0.33 mg/dL Normal 0.00-1.30 [facility] Comment on above: Performed By: #### L 501.9985, L509.8002, L100.0100, M8200.2203, L3890.6006, L500.4050, L500.4100, L503.6150, L503.6550 #### [facility] [address] [place], [address] BUN/CRE 16.2 RATIO Normal 10-20 [facility] Comment on above: Performed By: #### L 501.9985, L509.8002, L100.0100, M8200.2203, L3890.6006, L500.4050, L500.4100, L503.6150, L503.6550 #### [facility] [address] [place], [address] Calcium [Mass/Vol] 9.5 mg/dL Normal 7.6-11.0 [facility] Comment on above: Performed By: #### L 501.9985, L509.8002, L100.0100, M8200.2203, L3890.6006, L500.4050, L500.4100, L503.6150, L503.6550 #### [facility] [address] [place], [address] Chloride [Moles/Vol] 101 mmol/L Normal 98-108 [facility] Comment on above: Performed By: #### L 501.9985, L509.8002, L100.0100, M8200.2203, L3890.6006, L500.4050, L500.4100, L503.6150, L503.6550 #### [facility] [address] [place], [place], [id number] CO2 [Moles/Vol] 23.0 mmol/L Normal 21.0-32.0 [facility] Comment on above: Performed By: #### L 501.9985, L509.8002, L100.0100, M8200.2203, L3890.6006, L500.4050, L500.4100, L503.6150, L503.6550 #### [facility] [address] [place], [place], [id number] Creatinine [Mass/Vol] 1.13 mg/dL Normal 0.70-1.20 [facility] Comment on above: Performed By: #### L 501.9985, L509.8002, L100.0100, M8200.2203, L3890.6006, L500.4050, L500.4100, L503.6150, L503.6550 #### [facility] [address] [place], [place], [id number] GAP 15 Normal 5-15 [facility] Comment on above: Performed By: #### L 501.9985, L509.8002, L100.0100, M8200.2203, L3890.6006, L500.4050, L500.4100, L503.6150, L503.6550 #### [facility] [address] [place], [place], [id number] GFR/1.73 sq M.predicted among non-blacks MDRD (S/P/Bld) [Vol rate/Area] 76 mL/min/{1.73_m2} Normal >60 [facility] Comment on above: Result Comment: mL/m in/1.73m2 CKD-EPI Creatinine Equation (2020) Performed By: #### L 501.9985, L509.8002, L100.0100, M8200.2203, L3890.6006, L500.4050, L500.4100, L503.6150, L503.6550 #### [facility] [address] [place], [address] Globulin (S) [Mass/Vol] 2.6 g/dL Normal 2.2-4.2 [facility] Comment on above: Performed By: #### L 501.9985, L509.8002, L100.0100, M8200.2203, L3890.6006, L500.4050, L500.4100, L503.6150, L503.6550 #### [facility] [address] [place], [address] Glucose [Mass/Vol] 124 mg/dL High 70-99 [facility] Comment on above: Performed By: #### L 501.9985, L509.8002, L100.0100, M8200.2203, L3890.6006, L500.4050, L500.4100, L503.6150, L503.6550 #### [facility] [address] [place], [address] Potassium [Moles/Vol] 4.1 mmol/L Normal 3.3-5.1 [facility] Comment on above: Performed By: #### L 501.9985, L509.8002, L100.0100, M8200.2203, L3890.6006, L500.4050, L500.4100, L503.6150, L503.6550 #### [facility] [address] [place], [address] Sodium [Moles/Vol] 139 mmol/L Normal 133-145 [facility] Comment on above: Performed By: #### L 501.9985, L509.8002, L100.0100, M8200.2203, L3890.6006, L500.4050, L500.4100, L503.6150, L503.6550 #### [facility] [address] [place], [place], [id number] T PROT 7.1 g/dL Normal 5.9-8.4 [facility] Comment on above: Performed By: #### L 501.9985, L509.8002, L100.0100, M8200.2203, L3890.6006, L500.4050, L500.4100, L503.6150, L503.6550 #### [facility] [address] [place], [address] Urea nitrogen [Mass/Vol] 18 mg/dL Normal 4-19 [facility] Comment on above: Performed By: #### L 501.9985, L509.8002, L100.0100, M8200.2203, L3890.6006, L500.4050, L500.4100, L503.6150, L503.6550 #### [facility] [address] [facility] [address] [place], [place], [phone] Eosinophil percentageOrdered By: Jacinto Arroyo on 10-30-2024 Eosinophils/100 WBC (Bld) 4.5 % 0-5 [facility] Erythrocyte distribution wid th ratioOrdered By: Jacinto Arroyo on 10-30-2024 Erythrocyte distribution width (RBC) [Ratio] 13.2 % 11.6-14.6 [facility] Erythrocyte distribution wid th standard deviationOrdered By: Jacinto Arroyo on 10-30-2024 Erythrocyte distribution width (RBC) [Ratio] 44.7 fl High 35.1-43.9 [facility] Ferritinon 10-30-2024 Ferritin [Mass/Vol] 14 ng/mL Low 37-[address] [facility] Comment on above: Performed By: #### L 501.9985, L509.8002, L100.0100, M8200.2203, L3890.6006, L500.4050, L500.4100, L503.6150, L503.6550 #### [facility] [address] [facility] [address] [place], [address] Glomerular filtration rate ( GFR) estimation/1.73 sq m using serum, plasma, or whole bOrdered By: Jacinto Arroyo on 10-30-2024 GFR/1.73 sq M.predicted among non-blacks MDRD (S/P/Bld) [Vol rate/Area] 76 mL/min/{1.73_m2} >60 [facility] Comment on above: mL/min/1.73m2 CKD-EP I Creatinine Equation (2020) HIVon 10-30-2024 HIV Non-Reactive Normal Nonreactive [facility] Comment on above: Result Comment: Non- Reactive Reactive Repeatedly reactive samples must be confirmed according to CDC recommended confirmatory algorithms. The subresults for either HIVAG or AHIV can be used as an aid in the selection of the confirmation algorithm for reactive samples. Send out specimens with Reactive results to [facility] for confirmation. Order the HIV antibody detection and differentiation: [id number] Performed By: #### L 501.9985, L509.8002, L100.0100, M8200.2203, L3890.6006, L500.4050, L500.4100, L503.6150, L503.6550 #### [facility] [address] [place], [address] Hematocrit Auto (Bld) [Volum e fraction]Ordered By: Jacinto Arroyo on 10-30-2024 Hematocrit (Bld) [Volume fraction] 38.6 % Low 40-54 [facility] Hemoglobin A1con 10-30-2024 HbA1c (Bld) [Mass fraction] 6.4 % High <=5.6 [facility] Comment on above: Result Comment: Norm al < 5.7 % Prediabetic 5.7 - 6.4 % Diabetic >or= 6.5 % Please note range changes. Performed By: #### L 501.9985, L509.8002, L100.0100, M8200.2203, L3890.6006, L500.4050, L500.4100, L503.6150, L503.6550 #### [facility] [address] [place], [address] Hemoglobin A1c percentageOrd ered By: Jacinto Arroyo on 10-30-2024 HbA1c (Bld) [Mass fraction] 6.4 % High <5.7 [facility] Comment on above: Normal < 5.7 % Predi abetic 5.7 - 6.4 % Diabetic >or= 6.5 % Please note range changes. Hemoglobin measurementOrdere d By: Jacinto Arroyo on 10-30-2024 Hemoglobin (Bld) [Mass/Vol] 13.2 g/dL 13.0-16.5 [facility] Immature granulocytes/100 WB C Auto (Bld)Ordered By: Jacinto Arroyo on 10-30-2024 Immature granulocytes/100 WBC (Bld) 0.000 % 0.0-0.9 [facility] Comment on above: IG% - Immature Granu locytes (promyelocytes, myelocytes and metamyelocytes) > 1% indicates that a LEFT SHIFT is Present. Ironon 10-30-2024 Iron [Mass/Vol] 47 ug/dL Low 65-175 [facility] Comment on above: Performed By: #### L 501.9985, L509.8002, L100.0100, M8200.2203, L3890.6006, L500.4050, L500.4100, L503.6150, L503.6550 #### [facility] [address] [place], [address] Iron measurement (mass/mass) Ordered By: Jacinto Arroyo on 10-30-2024 Iron (Unsp spec) [Mass/Mass] 47 ug/dL Low 65-175 [facility] LDL calc ser/plasOrdered By: Jacinto Arroyo on 10-30-2024 Cholesterol in LDL [Mass/Vol] 67 mg/dL [facility] Comment on above: Wgpfialvqj=351-132 m g/dL & Higher Juml=063 mg/dL or greater Laboratory - Chemistry and C hemistry - challengeOrdered By: Jacinto Arroyo on 10-30-2024 AST [Catalytic activity/Vol] 17 U/L <38 [facility] Lipid Profileon 10-30-2024 CHOL:HDL 3.28 Normal [facility] Comment on above: Performed By: #### L 501.9985, L509.8002, L100.0100, M8200.2203, L3890.6006, L500.4050, L500.4100, L503.6150, L503.6550 #### [facility] [address] [place], [address] Cholesterol [Mass/Vol] 125 mg/dL Normal <=200 [facility] Comment on above: Result Comment: Chol esterol level, Desirable <200 mg/dL Borderline high cholesterol 200-239 mg/dL High cholesterol >=240 mg/dL Recommendations of the NCEP Adult Treatment Panel for the following risk-cutoff thresholds for the [place] population. Performed By: #### L 501.9985, L509.8002, L100.0100, M8200.2203, L3890.6006, L500.4050, L500.4100, L503.6150, L503.6550 #### [facility] [address] [place], [address] Cholesterol in HDL [Mass/Vol] 38 mg/dL Low [facility] Comment on above: Result Comment: Latasha onal Cholesterol Education Program (NCEP) guidelines: <40 mg/dL: Low HDL-cholesterol (major risk factor for CHD) >= 60 mg/dL: High HDL-cholesterol (negative risk factor for CHD) HDL-cholesterol is affected by a number of factors, e.g. smoking, exercise, hormones, sex and age. Performed By: #### L 501.9985, L509.8002, L100.0100, M8200.2203, L3890.6006, L500.4050, L500.4100, L503.6150, L503.6550 #### [facility] [address] [place], [address] Cholesterol in LDL [Mass/Vol] 67 mg/dL Normal [facility] Comment on above: Result Comment: Bord geqrvm=360-734 mg/dL Higher Wtoe=241 mg/dL or greater Performed By: #### L 501.9985, L509.8002, L100.0100, M8200.2203, L3890.6006, L500.4050, L500.4100, L503.6150, L503.6550 #### [facility] [address] [facility] [place], [place], [phone] ([phone]) Cholesterol in VLDL [Mass/Vol] 20 mg/dL Normal 5-40 [facility] Comment on above: Performed By: #### L 501.9985, L509.8002, L100.0100, M8200.2203, L3890.6006, L500.4050, L500.4100, L503.6150, L503.6550 #### [facility] [address] [facility] [place], [place], [phone] ([phone]) Triglyceride [Mass/Vol] 100 mg/dL Normal [facility] Comment on above: Result Comment: The drugs N-Acetylcysteine and Metamizole may falsely depress this assay. Normal range: <150 mg/dL Borderline High: 150-199 mg/dL High: 200-499 mg/dL Very High: >500 mg/dL Performed By: #### L 501.9985, L509.8002, L100.0100, M8200.2203, L3890.6006, L500.4050, L500.4100, L503.6150, L503.6550 #### [facility] [address] [facility] [place], [place], [phone] M8200.2203on 10-30-2024 M8200.2203 Pending Chlamydia Trachomatis PCR NEGATIVE for Chlamydia trachomatis N. gonorrhoeae PCR Negative for N. gonorrhoeae Normal [facility] Comment on above: Performed By: #### L 501.9985, L509.8002, L100.0100, M8200.2203, L3890.6006, L500.4050, L500.4100, L503.6150, L503.6550 #### [facility] [address] [facility] [place], [address] MCV (mean corpuscular volume ) determinationOrdered By: Jacinto Arroyo on 10-30-2024 MCV (RBC) [Entitic vol] 92.6 fL 80-[address] [facility] Mean corpuscular hemoglobin (MCH) determinationOrdered By: Jacinto Arroyo on 10-30-2024 MCH (RBC) [Entitic mass] 31.7 pg 27.0-32.0 [facility] Mean corpuscular hemoglobin concentration (MCHC) determinationOrdered By: Jacinto Arroyo on 10-30-2024 MCHC (RBC) [Mass/Vol] 34.2 g/dL 32-36 [facility] Mean platelet volume determi nationOrdered By: Jacinto Arroyo on 10-30-2024 Platelet mean volume (Bld) [Entitic vol] 9.9 fL 6.2-12.0 [facility] Monocyte percentageOrdered B y: Jacinto Arroyo on 10-30-2024 Monocytes/100 WBC (Bld) 9.3 % 0-[address] [facility] Neutrophil percentageOrdered By: Jacinto Arroyo on 10-30-2024 Neutrophils/100 WBC (Bld) 33.2 % Low 47-70 [facility] No Panel InformationOrdered By: Jacinto Arroyo on 10-30-2024 HIV (1&2) Antibody Non-Reactive Nonreactive [facility] Comment on above: Non-ReactiveReactive Repeatedly reactive samples must be confirmed according to CDC recommended confirmatory algorithms. The subresults for either HIVAG or AHIV can be used as an aid in the selection of the confirmation algorithm for reactive samples.Send out specimens with Reactive results to [facility] for confirmation.Order the HIV antibody detection and differentiation: lc#[id number] Nucleated red blood cell per centageOrdered By: Jacinto Arroyo on 10-30-2024 Nucleated RBC/100 WBC (Bld) [Ratio] 0 % 0-5 [facility] Platelet countOrdered By: Miguelito Arroyo on 10-30-2024 Platelets (Bld) [#/Vol] 218 10*3/uL 150-450 [facility] Potassium measurement (mass/ volume)Ordered By: Jacinto Arroyo on 10-30-2024 Potassium (Unsp spec) [Mass/Vol] 4.1 mmol/L 3.3-5.1 [facility] RBC Auto (Bld) [#/Vol]Ordere d By: Jacinto Arroyo on 10-30-2024 RBC (Bld) [#/Vol] 4.17 10*6/uL Low 4.6-6.[address] [facility] Screening total cholesterol/ high density lipoprotein (HDL) cholesterol ratioOrdered By: Jacinto Arroyo on 10-30-2024 Cholesterol.total/Choles terol in HDL [Mass ratio] 3.28 {ratio} [facility] Serum creatinine measurement (mass/volume)Ordered By: Jacinto Arroyo on 10-30-2024 Creatinine [Mass/Vol] 1.13 mg/dL 0.70-1.20 [facility] Serum globulin measurementOr dered By: Jacinto Arroyo on 10-30-2024 Globulin (S) [Mass/Vol] 2.6 g/dL 2.2-4.[address] [facility] Serum glucose measurement (m ass/volume)Ordered By: Jacinto Arroyo on 10-30-2024 Glucose [Mass/Vol] 124 mg/dL High 70-99 [facility] Serum or plasma alanine ndiaye otransferase (ALT) measurementOrdered By: Jacinto Arroyo on 10-30-2024 ALT [Catalytic activity/Vol] 15 U/L <47 [facility] Serum or plasma albumin juan urement (mass/volume)Ordered By: Jacinto Arroyo on 10-30-2024 Albumin [Mass/Vol] 4.5 g/dL 3.5-5.0 [facility] Serum or plasma albumin/glob ulin mass ratioOrdered By: Jacinto Arroyo on 10-30-2024 Albumin/Globulin [Mass ratio] 1.7 {ratio} 0.9-2.4 [facility] Serum or plasma alkaline pat sphatase measurementOrdered By: Jacinto Arroyo on 10-30-2024 ALP [Catalytic activity/Vol] 60 U/L 40-129 [facility] Serum or plasma calcium juan urement (mass/volume)Ordered By: Jacinto Arroyo on 10-30-2024 Calcium [Mass/Vol] 9.5 mg/dL 7.6-11.0 [facility] Serum or plasma cholesterol in HDL measurement (mass/volume)Ordered By: Jacinto Arroyo on 10-30-2024 Cholesterol in HDL [Mass/Vol] 38 mg/dL Low >40 [facility] Comment on above: National Cholesterol Education Program (NCEP) guidelines:<40 mg/dL: Low HDL-cholesterol (major risk factor for CHD)>= 60 mg/dL: High HDL-cholesterol (negative risk factor for CHD)HDL-cholesterol is affected by a number of factors, e.g. smoking, exercise, hormones, sex and age. Serum or plasma cholesterol measurement (mass/volume)Ordered By: Jacinto Arroyo on 10-30-2024 Cholesterol [Mass/Vol] 125 mg/dL <201 [facility] Comment on above: Cholesterol level, D esirable <200 mg/dLBorderline high cholesterol 200-239 mg/dLHigh cholesterol >=240 mg/dLRecommendations of the NCEP Adult Treatment Panel for the following risk-cutoff thresholds for the [place] population. Serum or plasma ferritin cristiane surement (mass/volume)Ordered By: Jacinto Arroyo on 10-30-2024 Ferritin [Mass/Vol] 14 ng/mL Low 37-[address] [facility] Serum or plasma urea nitroge n measurement (mass/volume)Ordered By: Jacinto Arroyo on 10-30-2024 Urea nitrogen [Mass/Vol] 18 mg/dL 4-19 [facility] Sodium levelOrdered By: Jacinto Arroyo on 10-30-2024 Sodium [Moles/Vol] 139 mmol/L 133-145 [facility] Syphilis Antibodieson 2024 Syphilis Abs Non-Reactive Normal Nonreactive [facility] Comment on above: Performed By: #### L 501.9985, L509.8002, L100.0100, M8200.2203, L3890.6006, L500.4050, L500.4100, L503.6150, L503.6550 #### [facility] [address] [place], [address] Total proteinOrdered By: Yaritza Arroyo on 10-30-2024 Protein [Mass/Vol] 7.1 g/dL 5.9-8.4 [facility] Triglycerides measurementOrd ered By: Jacinto Arroyo on 10-30-2024 Triglyceride [Mass/Vol] 100 mg/dL <[address] [facility] Comment on above: The drugs N-Acetylcy steine and Metamizole may falsely depress this assay. Normal range: <150 mg/dLBorderline High: 150-199 mg/dLHigh: 200-499 mg/dLVery High: >500 mg/dL White blood cell (WBC) count Ordered By: Jacinto Arroyo on 10-30-2024 WBC (Bld) [#/Vol] 4.0 10*3/uL Low 4.4-11.0 [facility] Absolute lymphocyte countOrd ered By: Jacinto Arroyo on 08-23-2024 Lymphocytes Auto (Unsp spec) [#/Vol] 2.16 10*3/uL 0.83-4.51 [facility] Absolute neutrophil countOrd ered By: Jacinto Arroyo on 08-23-2024 Neutrophils (Bld) [#/Vol] 1.4 10*3/uL Low 2.0-7.7 [facility] Anion gap in Serum or Plasma Ordered By: Jacinto Arroyo on 08-23-2024 Anion gap [Moles/Vol] 15 mmol/L 5- [facility] Automated lymphocyte count a s percentage of total leukocytesOrdered By: Jacinto Arroyo on 08-23-2024 Lymphocytes/100 WBC Auto (Unsp spec) 50.9 % High 19-41 [facility] BUN/creatinine ratioOrdered By: Jacinto Arroyo on 08-23-2024 Urea nitrogen/Creatinine [Mass ratio] 15.9 mg/mg 10- [facility] Basophil percentageOrdered B y: Jacinto Arroyo on 08-23-2024 Basophils/100 WBC (Bld) 0.5 % 0-[address] [facility] Bilirubin, totalOrdered By: Jacinto Arroyo on 08-23-2024 Bilirubin [Mass/Vol] 0.52 mg/dL 0.00-1.30 [facility] CBC W/Diff, Automatedon 08-05 Absolute Lymph 2.16 X10 3/uL Normal 0.83-4.51 [facility] Comment on above: Performed By: #### L 501.9985, L509.8002, L100.0100, M8200.2203, L3890.6006, L500.4050, L500.4100, L503.6150, L503.6550 #### [facility] [address] [facility] [place], [address] Absolute Neut 1.4 X10 3/uL Low 2.0-7.7 [facility] Comment on above: Performed By: #### L 501.9985, L509.8002, L100.0100, M8200.2203, L3890.6006, L500.4050, L500.4100, L503.6150, L503.6550 #### [facility] [address] [facility] [place], [address] Basophils/100 WBC (Bld) 0.5 % Normal 0-[address] [facility] Comment on above: Performed By: #### L 501.9985, L509.8002, L100.0100, M8200.2203, L3890.6006, L500.4050, L500.4100, L503.6150, L503.6550 #### [facility] [address] [facility] [place], [address] Eosinophils/100 WBC (Bld) 5.0 % Normal 0-5 [facility] Comment on above: Performed By: #### L 501.9985, L509.8002, L100.0100, M8200.2203, L3890.6006, L500.4050, L500.4100, L503.6150, L503.6550 #### [facility] [address] [facility] [place], [address] Erythrocyte distribution width (RBC) [Ratio] 12.7 % Normal 11.6-14.6 [facility] Comment on above: Performed By: #### L 501.9985, L509.8002, L100.0100, M8200.2203, L3890.6006, L500.4050, L500.4100, L503.6150, L503.6550 #### [facility] [address] [place], [address] Hematocrit (Bld) [Volume fraction] 40.6 % Normal 40-54 [facility] Comment on above: Performed By: #### L 501.9985, L509.8002, L100.0100, M8200.2203, L3890.6006, L500.4050, L500.4100, L503.6150, L503.6550 #### [facility] [address] [facility] [place], [address] ( Hemoglobin (Bld) [Mass/Vol] 13.8 g/dL Normal 13.0-16.5 [facility] Comment on above: Performed By: #### L 501.9985, L509.8002, L100.0100, M8200.2203, L3890.6006, L500.4050, L500.4100, L503.6150, L503.6550 #### [facility] [address] [facility] [place], [address] IG% 0.200 Normal 0.0-0.9 [facility] Comment on above: Result Comment: IG% - Immature Granulocytes (promyelocytes, myelocytes and metamyelocytes) > 1% indicates that a LEFT SHIFT is Present. Performed By: #### L 501.9985, L509.8002, L100.0100, M8200.2203, L3890.6006, L500.4050, L500.4100, L503.6150, L503.6550 #### [facility] [address] [facility] [place], [address] Lymphocytes/100 WBC (Bld) 50.9 % High 19-41 [facility] Comment on above: Performed By: #### L 501.9985, L509.8002, L100.0100, M8200.2203, L3890.6006, L500.4050, L500.4100, L503.6150, L503.6550 #### [facility] [address] [place], [address] ( MCH (RBC) [Entitic mass] 31.4 pg Normal 27.0-32.0 [facility] Comment on above: Performed By: #### L 501.9985, L509.8002, L100.0100, M8200.2203, L3890.6006, L500.4050, L500.4100, L503.6150, L503.6550 #### [facility] [address] [place], [address] ( MCHC (RBC) [Mass/Vol] 34.0 g/dL Normal 32-36 [facility] Comment on above: Performed By: #### L 501.9985, L509.8002, L100.0100, M8200.2203, L3890.6006, L500.4050, L500.4100, L503.6150, L503.6550 #### [facility] [address] [place] [place], [address] MCV (RBC) [Entitic vol] 92.5 fL Normal 80-[address] [facility] Comment on above: Performed By: #### L 501.9985, L509.8002, L100.0100, M8200.2203, L3890.6006, L500.4050, L500.4100, L503.6150, L503.6550 #### [facility] [address] [facility] [place], [address] Monocytes/100 WBC (Bld) 10.4 % High 0-[address] [facility] Comment on above: Performed By: #### L 501.9985, L509.8002, L100.0100, M8200.2203, L3890.6006, L500.4050, L500.4100, L503.6150, [id number] #### [facility] [address] [place], [address] (974) Neutrophils/100 WBC (Bld) 33.0 % Low 47-70 [facility] Comment on above: Performed By: #### L 501.9985, L509.8002, L100.0100, M8200.2203, L3890.6006, L500.4050, L500.4100, L503.6150, [id number] #### [facility] [address] [place], [address] (604) Nucleated RBC (Bld) [#/Vol] 0 10*3/uL Normal 0-5 [facility] [facility] Comment on above: Performed By: #### L 501.9985, L509.8002, L100.0100, M8200.2203, L3890.6006, L500.4050, L500.4100, L503.6150, L503.6550 #### [facility] [address], [address] [phone]) Platelet mean volume (Bld) [Entitic vol] 9.8 fL Normal 6.2-12.0 [facility] Comment on above: Performed By: #### L 501.9985, L509.8002, L100.0100, M8200.2203, L3890.6006, L500.4050, L500.4100, L503.6150, L503.6550 #### [facility] [address] [place], [address] Platelets (Bld) [#/Vol] 248 10*3/uL Normal 150-450 [facility] Comment on above: Performed By: #### L 501.9985, L509.8002, L100.0100, M8200.2203, L3890.6006, L500.4050, L500.4100, L503.6150, L503.6550 #### [facility] [address] [place], [address] RBC (Bld) [#/Vol] 4.39 10*6/uL Low 4.6-6.[address] [facility] Comment on above: Performed By: #### L 501.9985, L509.8002, L100.0100, M8200.2203, L3890.6006, L500.4050, L500.4100, L503.6150, L503.6550 #### [facility] [address] [place], [address] (139) RDW SD 43.4 fl Normal 35.1-43.9 [facility] Comment on above: Performed By: #### L 501.9985, L509.8002, L100.0100, M8200.2203, L3890.6006, L500.4050, L500.4100, L503.6150, L503.6550 #### [facility] [address] [place], [address] WBC (Bld) [#/Vol] 4.2 10*3/uL Low 4.4-11.0 [facility] Comment on above: Performed By: #### L 501.9985, L509.8002, L100.0100, M8200.2203, L3890.6006, L500.4050, L500.4100, L503.6150, L503.6550 #### [facility] [address] [place], [place], [phone] Calculated very low density lipoprotein (VLDL) cholesterol measurementOrdered By: Jacinto Arroyo on 08-23-2024 Calculated very low density lipoprotein (VLDL) cholesterol measurement 18 mg/dL [facility] VLDL Cholesterol 18 mg/dL [facility] Carbon dioxide, total [Moles /volume] in Central venous bloodOrdered By: Jacinto Arroyo on 08-23-2024 CO2 [Moles/Vol] 21.3 mmol/L 21.0-32.0 [facility] Chlamydia and Neisseria gono rrhoeae detection by PCROrdered By: Jacinto Arroyo on 08-23-2024 Chlamydia/Neisseria (PCR) [facility] Chloride assayOrdered By: Miguelito Arroyo on 08-23-2024 Chloride [Moles/Vol] 101 mmol/L 98-108 [facility] Comprehensive Metabolic Prof ilon 08-23-2024 Albumin [Mass/Vol] 4.7 g/dL Normal 3.5-5.0 [facility] Comment on above: Performed By: #### L 501.9985, L509.8002, L100.0100, M8200.2203, L3890.6006, L500.4050, L500.4100, L503.6150, L503.6550 #### [facility] [address] [place], [place], [phone] ([phone]) Albumin/Globulin [Mass ratio] 1.8 {ratio} Normal 0.9-2.4 [facility] Comment on above: Performed By: #### L 501.9985, L509.8002, L100.0100, M8200.2203, L3890.6006, L500.4050, L500.4100, L503.6150, L503.6550 #### [facility] [address] [place], [place], [id number] ALK PHOS 58 U/L Normal 40-129 [facility] Comment on above: Performed By: #### L 501.9985, L509.8002, L100.0100, M8200.2203, L3890.6006, L500.4050, L500.4100, L503.6150, L503.6550 #### [facility] [address] [place], [place], [phone] ([phone]) ALT [Catalytic activity/Vol] 13 U/L Normal <=46 [facility] Comment on above: Performed By: #### L 501.9985, L509.8002, L100.0100, M8200.2203, L3890.6006, L500.4050, L500.4100, L503.6150, L503.6550 #### [facility] [address] [place], [place], [phone] ([phone]) AST [Catalytic activity/Vol] 13 U/L Normal <=37 [facility] Comment on above: Performed By: #### L 501.9985, L509.8002, L100.0100, M8200.2203, L3890.6006, L500.4050, L500.4100, L503.6150, L503.6550 #### [facility] [address] [place], [place], [phone] ([phone]) Bilirubin [Mass/Vol] 0.52 mg/dL Normal 0.00-1.30 [facility] Comment on above: Performed By: #### L 501.9985, L509.8002, L100.0100, M8200.2203, L3890.6006, L500.4050, L500.4100, L503.6150, L503.6550 #### [facility] [address] [place], [place], [phone] ([phone]) BUN/CRE 15.9 RATIO Normal 10-20 [facility] Comment on above: Performed By: #### L 501.9985, L509.8002, L100.0100, M8200.2203, L3890.6006, L500.4050, L500.4100, L503.6150, L503.6550 #### [facility] [address] [place], [place], [phone] ([phone]) Calcium [Mass/Vol] 9.5 mg/dL Normal 7.6-11.0 [facility] Comment on above: Performed By: #### L 501.9985, L509.8002, L100.0100, M8200.2203, L3890.6006, L500.4050, L500.4100, L503.6150, L503.6550 #### [facility] [address] [place], [place], [phone] ([phone]) Chloride [Moles/Vol] 101 mmol/L Normal 98-108 [facility] Comment on above: Performed By: #### L 501.9985, L509.8002, L100.0100, M8200.2203, L3890.6006, L500.4050, L500.4100, L503.6150, L503.6550 #### [facility] [address] [place], [place], [phone] ([phone]) CO2 [Moles/Vol] 21.3 mmol/L Normal 21.0-32.0 [facility] Comment on above: Performed By: #### L 501.9985, L509.8002, L100.0100, M8200.2203, L3890.6006, L500.4050, L500.4100, L503.6150, L503.6550 #### [facility] [address] [place], [address] Creatinine [Mass/Vol] 1.26 mg/dL High 0.70-1.20 [facility] Comment on above: Performed By: #### L 501.9985, L509.8002, L100.0100, M8200.2203, L3890.6006, L500.4050, L500.4100, L503.6150, L503.6550 #### [facility] [address] [place], [address] GAP 15 Normal 5-15 [facility] Comment on above: Performed By: #### L 501.9985, L509.8002, L100.0100, M8200.2203, L3890.6006, L500.4050, L500.4100, L503.6150, L503.6550 #### [facility] [address] [place], [address] GFR/1.73 sq M.predicted among non-blacks MDRD (S/P/Bld) [Vol rate/Area] 67 mL/min/{1.73_m2} Normal >60 [facility] Comment on above: Result Comment: mL/m in/1.73m2 CKD-EPI Creatinine Equation (2020) Performed By: #### L 501.9985, L509.8002, L100.0100, M8200.2203, L3890.6006, L500.4050, L500.4100, L503.6150, L503.6550 #### [facility] [address] [place], [address] Globulin (S) [Mass/Vol] 2.6 g/dL Normal 2.2-4.2 [facility] Comment on above: Performed By: #### L 501.9985, L509.8002, L100.0100, M8200.2203, L3890.6006, L500.4050, L500.4100, L503.6150, L503.6550 #### [facility] [address] [place], [address] Glucose [Mass/Vol] 131 mg/dL High 70-99 [facility] Comment on above: Performed By: #### L 501.9985, L509.8002, L100.0100, M8200.2203, L3890.6006, L500.4050, L500.4100, L503.6150, L503.6550 #### [facility] [address] [place], [address] Potassium [Moles/Vol] 4.6 mmol/L Normal 3.3-5.1 [facility] Comment on above: Performed By: #### L 501.9985, L509.8002, L100.0100, M8200.2203, L3890.6006, L500.4050, L500.4100, L503.6150, L503.6550 #### [facility] [address] [place], [place], [phone] Sodium [Moles/Vol] 137 mmol/L Normal 133-145 [facility] Comment on above: Performed By: #### L 501.9985, L509.8002, L100.0100, M8200.2203, L3890.6006, L500.4050, L500.4100, L503.6150, L503.6550 #### [facility] [address] [place], [address] (148) T PROT 7.3 g/dL Normal 5.9-8.4 [facility] Comment on above: Performed By: #### L 501.9985, L509.8002, L100.0100, M8200.2203, L3890.6006, L500.4050, L500.4100, L503.6150, L503.6550 #### [facility] [address] [place], [address] Urea nitrogen [Mass/Vol] 20 mg/dL High 4-19 [facility] Comment on above: Performed By: #### L 501.9985, L509.8002, L100.0100, M8200.2203, L3890.6006, L500.4050, L500.4100, L503.6150, L503.6550 #### [facility] [address] [place], [place], [phone] Eosinophil percentageOrdered By: Jacinto Arroyo on 08-23-2024 Eosinophils/100 WBC (Bld) 5.0 % 0-5 [facility] Erythrocyte distribution wid th ratioOrdered By: Jacinto Arroyo on 08-23-2024 Erythrocyte distribution width (RBC) [Ratio] 12.7 % 11.6-14.6 [facility] Erythrocyte distribution wid th standard deviationOrdered By: Jcainto Arroyo on 08-23-2024 Erythrocyte distribution width (RBC) [Entitic vol] 43.4 fL 35.1-43.9 [facility] Erythrocyte distribution width (RBC) [Ratio] 43.4 fl 35.1-43.9 [facility] Ferritinon 08-23-2024 Ferritin [Mass/Vol] 13 ng/mL Low 37-[address] [facility] Comment on above: Performed By: #### L 501.9985, L509.8002, L100.0100, M8200.2203, L3890.6006, L500.4050, L500.4100, L503.6150, L503.6550 #### [facility] [address] [place], [place], [phone] GFR/1.73 sq M.predicted laura g non-blacks MDRD (S/P/Bld) [Vol rate/Area]Ordered By: Jacinto Arroyo on 08-23-2024 Estimated GFR (MDRD) Non-Af Amer 67 >60 [facility] Comment on above: mL/min/1.73m2 CKD-EP I Creatinine Equation (2020) Glomerular filtration rate ( GFR) estimation/1.73 sq m using serum, plasma, or whole bOrdered By: Jacinto Arroyo on 08-23-2024 GFR/1.73 sq M.predicted among non-blacks MDRD (S/P/Bld) [Vol rate/Area] 67 mL/min/{1.73_m2} >60 [facility] Comment on above: mL/min/1.73m2 CKD-EP I Creatinine Equation (2020) Hematocrit Auto (Bld) [Volum e fraction]Ordered By: Jacinto Arroyo on 08-23-2024 Hematocrit (Bld) [Volume fraction] 40.6 % 40-54 [facility] Hemoglobin A1con 08-23-2024 HbA1c (Bld) [Mass fraction] 6.8 % Normal <=5.6 [facility] Comment on above: Performed By: #### L 501.9985, L509.8002, L100.0100, M8200.2203, L3890.6006, L500.4050, L500.4100, L503.6150, L503.6550 #### [facility] [address] [facility] [place], [place], [phone] Hemoglobin A1c percentageOrd ered By: Jacinto Arroyo on 08-23-2024 HbA1c (Bld) [Mass fraction] 6.8 % >5.7 [facility] Hemoglobin measurementOrdere d By: Jacinto Arroyo on 08-23-2024 Hemoglobin (Bld) [Mass/Vol] 13.8 g/dL 13.0-16.5 [facility] Immature granulocytes/100 WB C Auto (Bld)Ordered By: Jacinto Arroyo on 08-23-2024 Immature granulocytes/100 WBC (Bld) 0.200 % 0.0-0.9 [facility] Comment on above: IG% - Immature Granu locytes (promyelocytes, myelocytes and metamyelocytes) > 1% indicates that a LEFT SHIFT is Present. Ironon 08-23-2024 Iron [Mass/Vol] 65 ug/dL Normal 65-175 [facility] Comment on above: Performed By: #### L 501.9985, L509.8002, L100.0100, M8200.2203, L3890.6006, L500.4050, L500.4100, L503.6150, L503.6550 #### [facility] [address] [place], [place], [phone] (Unsp spec) [Mass/Mass] Ordered By: Jacinto Arroyo on 08-23-2024 Iron [Mass/Vol] 65 ug/dL 65-175 [facility] Iron measurement (mass/mass) Ordered By: Jacinto Arroyo on 08-23-2024 Iron (Unsp spec) [Mass/Mass] 65 ug/dL 65-175 [facility] L3890.6006on 08-23-2024 HIV Non-Reactive Normal Nonreactive [facility] Comment on above: Result Comment: Non- Reactive Reactive Repeatedly reactive samples must be confirmed according to CDC recommended confirmatory algorithms. The subresults for either HIVAG or AHIV can be used as an aid in the selection of the confirmation algorithm for reactive samples. Send out specimens with Reactive results to [facility] for confirmation. Order the HIV antibody detection and differentiation: [id number] Performed By: #### L 501.9985, L509.8002, L100.0100, M8200.2203, L3890.6006, L500.4050, L500.4100, L503.6150, L503.6550 #### [facility] [address] [place], [address] L509.8002on 08-23-2024 Syphilis Abs Non-Reactive Normal Nonreactive [facility] Comment on above: Performed By: #### L 501.9985, L509.8002, L100.0100, M8200.2203, L3890.6006, L500.4050, L500.4100, L503.6150, L503.6550 #### [facility] [address] [place], [address] LDL calc ser/plasOrdered By: Jacinto Arroyo on 08-23-2024 Cholesterol in LDL [Mass/Vol] 79 mg/dL [facility] Comment on above: Zlaiasenbf=418-109 m g/dL & Higher Bzne=049 mg/dL or greater LDL Cholesterol, Calculated 79 mg/dL [facility] Comment on above: Dxghbhdexo=236-150 m g/dL & Higher Jech=276 mg/dL or greater Laboratory - Chemistry and C hemistry - challengeOrdered By: Jacinto Arroyo on 08-23-2024 AST [Catalytic activity/Vol] 13 U/L <38 [facility] Lipid Profileon 08-23-2024 CHOL:HDL 3.20 Normal [facility] Comment on above: Performed By: #### L 501.9985, L509.8002, L100.0100, M8200.2203, L3890.6006, L500.4050, L500.4100, L503.6150, L503.6550 #### [facility] [address] [place], [address] Cholesterol [Mass/Vol] 141 mg/dL Normal <=200 [facility] Comment on above: Result Comment: Chol esterol level, Desirable <200 mg/dL Borderline high cholesterol 200-239 mg/dL High cholesterol >=240 mg/dL Recommendations of the NCEP Adult Treatment Panel for the following risk-cutoff thresholds for the [place] population. Performed By: #### L 501.9985, L509.8002, L100.0100, M8200.2203, L3890.6006, L500.4050, L500.4100, L503.6150, L503.6550 #### [facility] [address] [place], [address] Cholesterol in HDL [Mass/Vol] 44 mg/dL Normal [facility] Comment on above: Result Comment: Latasha onal Cholesterol Education Program (NCEP) guidelines: <40 mg/dL: Low HDL-cholesterol (major risk factor for CHD) >= 60 mg/dL: High HDL-cholesterol (negative risk factor for CHD) HDL-cholesterol is affected by a number of factors, e.g. smoking, exercise, hormones, sex and age. Performed By: #### L 501.9985, L509.8002, L100.0100, M8200.2203, L3890.6006, L500.4050, L500.4100, L503.6150, L503.6550 #### [facility] [address] [place], [address] Cholesterol in LDL [Mass/Vol] 79 mg/dL Normal [facility] Comment on above: Result Comment: Bord vkeaov=659-973 mg/dL Higher Znyj=224 mg/dL or greater Performed By: #### L 501.9985, L509.8002, L100.0100, M8200.2203, L3890.6006, L500.4050, L500.4100, L503.6150, L503.6550 #### [facility] [address] [place], [address] Cholesterol in VLDL [Mass/Vol] 18 mg/dL Normal 5-40 [facility] Comment on above: Performed By: #### L 501.9985, L509.8002, L100.0100, M8200.2203, L3890.6006, L500.4050, L500.4100, L503.6150, L503.6550 #### [facility] [address] [place], [address] Triglyceride [Mass/Vol] 89 mg/dL Normal [facility] Comment on above: Result Comment: The drugs N-Acetylcysteine and Metamizole may falsely depress this assay. Normal range: <150 mg/dL Borderline High: 150-199 mg/dL High: 200-499 mg/dL Very High: >500 mg/dL Performed By: #### L 501.9985, L509.8002, L100.0100, M8200.2203, L3890.6006, L500.4050, L500.4100, L503.6150, L503.6550 #### [facility] [address] [place], [address] Lymphocytes Auto (Unsp spec) [#/Vol]Ordered By: Jacinto Arroyo on 08-23-2024 Lymphocytes (Bld) [#/Vol] 2.16 10*3/uL 0.83-4.51 [facility] Lymphocytes/100 WBC Auto (Un sp spec)Ordered By: Jacinto Arroyo on 08-23-2024 Lymphocytes/100 WBC (Bld) 50.9 % High 19-41 [facility] M8200.2203on 08-23-2024 M8200.2203 Pending Chlamydia Trachomatis PCR NEGATIVE for Chlamydia trachomatis N. gonorrhoeae PCR Negative for N. gonorrhoeae Normal [facility] Comment on above: Performed By: #### L 501.9985, L509.8002, L100.0100, M8200.2203, L3890.6006, L500.4050, L500.4100, L503.6150, L503.6550 #### [facility] [address] [place], [address] MCV (mean corpuscular volume ) determinationOrdered By: Jacinto Arroyo on 08-23-2024 MCV (RBC) [Entitic vol] 92.5 fL 80-94 [facility] Mean corpuscular hemoglobin (MCH) determinationOrdered By: Jacinto Arroyo on 08-23-2024 MCH (RBC) [Entitic mass] 31.4 pg 27.0-32.0 [facility] Mean corpuscular hemoglobin concentration (MCHC) determinationOrdered By: Jacinto Arroyo on 08-23-2024 MCHC (RBC) [Mass/Vol] 34.0 g/dL 32-36 [facility] Mean platelet volume determi nationOrdered By: Jacinto Arroyo on 08-23-2024 Platelet mean volume (Bld) [Entitic vol] 9.8 fL 6.2-12.0 [facility] Monocyte percentageOrdered B y: Jacinto Arroyo on 08-23-2024 Monocytes/100 WBC (Bld) 10.4 % High 0-10 [facility] Neutrophil percentageOrdered By: Jacinto Arroyo on 08-23-2024 Neutrophils/100 WBC (Bld) 33.0 % Low 47-70 [facility] No Panel InformationOrdered By: Jacinto Arroyo on 08-23-2024 HIV (1&2) Antibody Non-Reactive Nonreactive [facility] Comment on above: Non-ReactiveReactive Repeatedly reactive samples must be confirmed according to CDC recommended confirmatory algorithms. The subresults for either HIVAG or AHIV can be used as an aid in the selection of the confirmation algorithm for reactive samples.Send out specimens with Reactive results to [facility] for confirmation.Order the HIV antibody detection and differentiation: #[id number] Nucleated red blood cell per centageOrdered By: Jacinto Arroyo on 08-23-2024 Nucleated RBC/100 WBC (Bld) [Ratio] 0 % 0-5 [facility] Platelet countOrdered By: Miguelito Arroyo on 08-23-2024 Platelets (Bld) [#/Vol] 248 10*3/uL 150-450 [facility] Potassium (Unsp spec) [Mass/ Vol]Ordered By: Jacinto Arroyo on 08-23-2024 Potassium [Moles/Vol] 4.6 mmol/L 3.3-5.1 [facility] Potassium measurement (mass/ volume)Ordered By: Jacinto Arroyo on 08-23-2024 Potassium (Unsp spec) [Mass/Vol] 4.6 mmol/L 3.3-5.1 [facility] RBC Auto (Bld) [#/Vol]Ordere d By: Jacinto Arroyo on 08-23-2024 RBC (Bld) [#/Vol] 4.39 10*6/uL Low 4.6-6.[address] [facility] Screening total cholesterol/ high density lipoprotein (HDL) cholesterol ratioOrdered By: Jacinto Arroyo on 08-23-2024 Cholesterol.total/Choles terol in HDL [Mass ratio] 3.20 {ratio} [facility] Serum creatinine measurement (mass/volume)Ordered By: Jacinto Arroyo on 08-23-2024 Creatinine [Mass/Vol] 1.26 mg/dL High 0.70-1.20 [facility] Serum globulin measurementOr dered By: Jacinto Arroyo on 08-23-2024 Globulin (S) [Mass/Vol] 2.6 g/dL 2.2-4.2 [facility] Serum glucose measurement (m ass/volume)Ordered By: Jacinto Arroyo on 08-23-2024 Glucose [Mass/Vol] 131 mg/dL High 70-99 [facility] Serum or plasma alanine ndiaye otransferase (ALT) measurementOrdered By: Jacinto Arroyo on 08-23-2024 ALT [Catalytic activity/Vol] 13 U/L <47 [facility] Serum or plasma albumin juan urement (mass/volume)Ordered By: Jacinto Arroyo on 08-23-2024 Albumin [Mass/Vol] 4.7 g/dL 3.5-5.0 [facility] Serum or plasma albumin/glob ulin mass ratioOrdered By: Jacinto Arroyo on 08-23-2024 Albumin/Globulin [Mass ratio] 1.8 {ratio} 0.9-2.4 [facility] Serum or plasma alkaline pat sphatase measurementOrdered By: Jacinto Arroyo on 08-23-2024 ALP [Catalytic activity/Vol] 58 U/L 40-129 [facility] Serum or plasma calcium juan urement (mass/volume)Ordered By: Jacinto Arroyo on 08-23-2024 Calcium [Mass/Vol] 9.5 mg/dL 7.6-11.0 [facility] Serum or plasma cholesterol in HDL measurement (mass/volume)Ordered By: Jacinto Arroyo on 08-23-2024 Cholesterol in HDL [Mass/Vol] 44 mg/dL >40 [facility] Comment on above: National Cholesterol Education Program (NCEP) guidelines:<40 mg/dL: Low HDL-cholesterol (major risk factor for CHD)>= 60 mg/dL: High HDL-cholesterol (negative risk factor for CHD)HDL-cholesterol is affected by a number of factors, e.g. smoking, exercise, hormones, sex and age. Serum or plasma cholesterol measurement (mass/volume)Ordered By: Jacinto Arroyo on 08-23-2024 Cholesterol [Mass/Vol] 141 mg/dL <201 [facility] Comment on above: Cholesterol level, D esirable <200 mg/dLBorderline high cholesterol 200-239 mg/dLHigh cholesterol >=240 mg/dLRecommendations of the NCEP Adult Treatment Panel for the following risk-cutoff thresholds for the [place] population. Serum or plasma ferritin cristiane surement (mass/volume)Ordered By: Jacinto Arroyo on 08-23-2024 Ferritin [Mass/Vol] 13 ng/mL Low 37-[address] [facility] Serum or plasma urea nitroge n measurement (mass/volume)Ordered By: Jacinto Arroyo on 08-23-2024 Urea nitrogen [Mass/Vol] 20 mg/dL High 4-19 [facility] Sodium levelOrdered By: Jacinto Arroyo on 08-23-2024 Sodium [Moles/Vol] 137 mmol/L 133-145 [facility] T. pallidum abOrdered By: Miguelito Arroyo on 08-23-2024 Syphilis Total Antibody Non-Reactive Nonreactiv e [facility] Total proteinOrdered By: Yaritza Arroyo on 08-23-2024 Protein [Mass/Vol] 7.3 g/dL 5.9-8.4 [facility] Triglycerides measurementOrd ered By: Jacinto Arroyo on 08-23-2024 Triglyceride [Mass/Vol] 89 mg/dL <[address] [facility] Comment on above: The drugs N-Acetylcy steine and Metamizole may falsely depress this assay. Normal range: <150 mg/dLBorderline High: 150-199 mg/dLHigh: 200-499 mg/dLVery High: >500 mg/dL White blood cell (WBC) count Ordered By: Jacinto Arroyo on 08-23-2024 WBC (Bld) [#/Vol] 4.2 10*3/uL Low 4.4-11.0 [facility] Cardiology Visit Reporton Cardiology Visit Report [facility] [address] [place] [address] OFFICE VISIT Date of Service: 05/24/24 MR#: [id number] Acct: [id number] Name: ALEJANDRO REYES Rep #: [id number] : 1965 Provider: Dr. Jonnathan Celeste MD Age/Sex: 58/M Location: [facility] [place] Status: Signed HPI HPI History of Present Illness Details: ALEJANDRO REYES, is a 58-year-old man who presents for a follow-up visit. He does have a history of bicuspid aortic valve as well as diabetes mellitus and hemochromastasis. He denies chest, arm, jaw, or neck discomfort. He denies symptoms of shortness of breath with exertion, shortness of breath at rest, orthopnea, PND, sudden weight gain, or bilateral lower extremity edema. He denies chronic cough. He denies palpitations, lightheadedness, dizziness, near syncope, or syncopal episodes. He denies claudication issues. He denies fever or chills. He denies blood in urine, blood in stool, or epistaxis. He denies myalgia. He denies unexplainable fatigue. His exercise tolerance is stable via elliptical for 1 hour. Intake Vital Signs 03/28/23 11:26 05/24/24 13:31 Height 5 ft 10 in 5 ft 10 in Weight: 188 lb BMI 26.9 BP 115/72 Blood Pressure Location Lt brachial Position Sitting Respiration 16 Pulse 3 L Pulse Source Monitor Intake Visit Reasons: 1 Y FU Accompanied by: Self Is patient in pain?: No Allergies tetracycline Allergy (Severe, Verified 12/19/24 13:33) Hives doxycycline Allergy (Unknown, Verified 05/24/24 13:33) Hives meperidine (From Demerol) Allergy (Verified 05/24/24 13:33) Hives promethazine (From Phenergan) Allergy (Verified 05/24/24 13:33) Hives Medications ???Medication ???Instructions ???Recorded ???Confirmed ???Type metformin 500 mg tablet,extended 1,000 mg PO BID 09/18/16 05/24/24 History release 24 hr pantoprazole 40 mg tablet,delayed 40 mg PO DAILY 03/18/19 05/24/24 History release atorvastatin 20 mg tablet 20 mg PO QHS 12/04/20 05/24/24 History emtricitabine 100 mg-tenofovir 1 tab PO DAILY 12/04/20 05/24/24 History disoproxil fumarate 150 mg tablet (Truvada) canagliflozin 300 mg tablet 300 mg PO DAILY 12/30/21 05/24/24 History (Invokana) cetirizine 10 mg tablet (Allergy 10 mg PO DAILY PRN 03/28/23 05/24/24 History Relief (cetirizine)) semaglutide 0.25 mg or 0.5 mg (2 0.25 mg subcut 05/24/24 05/24/24 History mg/3 mL) subcutaneous pen injector (Ozempic) Have you fallen in the past year?: Yes PFSH Medical History Kidney stones Hereditary hemochromatosis Obesity Severe headache Hay fever EVANS (nonalcoholic steatohepatitis) Type 2 diabetes mellitus without complication Right carpal tunnel syndrome Palpitations HLD (hyperlipidemia) Bicuspid aortic valve Hemochromatosis History of kidney disease Surgical History History of carpal tunnel surgery of right wrist (09/2018) History of tonsillectomy History of kidney surgery Family History Father CAD (coronary artery disease) Mother Heart disease Breast cancer Social History Smoking Status: Never smoker alcohol intake: never substance use type: does not use caffeine: Yes Type: carbonated beverages Number of servings: 3 ROS Const Const: Negative for fatigue, weakness, headache(s), daytime sleepiness or difficulty sleeping ENT ENT: Negative for headache(s), dizziness or Nosebleed/epistaxi s Cardio Chest Pain: No Palpitations: No Edema: None Resp Respiratory: Negative for SOB with activity, SOB at rest, SOB orthopnea SOB lying down or Cough GI GI: Negative nausea, vomiting or heartburn Neuro Neuro: Negative for dizziness, lightheadedness, near syncope, headache(s) or weakness Endo Endo: Negative for fatigue Cardiology Exam Const Appearance: cooperative, healthy appearing, comfortable and no acute distress Nutritional Appearance: average body habitus and well nourished Orientation: alert, awake and oriented x3 Head Head: normal to inspection Ears: hearing grossly normal bilaterally Nose: external nose normal Face and Sinus: face symmetric Mouth: oral mucosae normal Eyes General: appearance normal, both eyes and all related structures Eyelids: eyelids normal EOM: EOM intact bilaterally Neck Neck: normal visual inspection and no JVD Carotids: normal carotid upstroke Chest Chest inspection: normal inspection of the chest, symmetric chest movement and normal respiratory effort; Negative cough Auscultation: Bilateral: Clear to Auscultation Cardio Rate: regular rate Rhythm: regular rhythm Heart sounds: S1 normal, (more content not included)... Normal [facility] Lipid Profileon 05-01-2024 Cholesterol [Mass/Vol] 116 mg/dL Normal 200 [facility] Comment on above: Result Comment: <200 mg/dL Desirable 200-240 mg/dL Borderline >240 mg/dL High Risk Performed By: #### L 501.9985, L509.8002, L100.0100, M8200.2203, L3890.6006, L500.4050, L500.4100, L503.6150, L503.6550 #### [facility] [address] [place], [address] Cholesterol in HDL [Mass/Vol] 44 mg/dL Normal [facility] Comment on above: Result Comment: The drugs N-Acetylcysteine and Metamizole may falsely depress this assay. Reference Range HDL <40 mg/dL Low HDL Cholesterol HDL >or= 60 mg/dL High HDL Cholesterol Performed By: #### L 501.9985, L509.8002, L100.0100, M8200.2203, L3890.6006, L500.4050, L500.4100, L503.6150, L503.6550 #### [facility] [address] [place], [address] Cholesterol in LDL [Mass/Vol] 58 mg/dL Normal 0-130 [facility] Comment on above: Performed By: #### L 501.9985, L509.8002, L100.0100, M8200.2203, L3890.6006, L500.4050, L500.4100, L503.6150, L503.6550 #### [facility] [address] [facility] [place], [place], [phone] ([phone] Cholesterol in VLDL [Mass/Vol] 14 mg/dL Normal 5-40 [facility] Comment on above: Performed By: #### L 501.9985, L509.8002, L100.0100, M8200.2203, L3890.6006, L500.4050, L500.4100, L503.6150, L503.6550 #### [facility] [address] [facility] [place], [place], [phone] ([phone] Triglyceride [Mass/Vol] 69 mg/dL Normal [facility] Comment on above: Result Comment: The drugs N-Acetylcysteine and Metamizole may falsely depress this assay. Serum Triglycerides Reference Interval Normal <150 mg/dL Borderline high 150 - 199 mg/dL High 200 - 499 mg/dL Very High > or = 500 mg/dL Performed By: #### L 501.9985, L509.8002, L100.0100, M8200.2203, L3890.6006, L500.4050, L500.4100, L503.6150, L503.6550 #### [facility] [address] [place], [address] CBC W/Diff, Automatedon 11-2 -2023 Absolute Lymph 1.97 X10 3/uL Normal 0.83-4.51 [facility] Comment on above: Performed By: #### L 503.6150, M8200.2203, L3890.6005, L503.6550, L500.4100, L500.4050, L100.0100, L509.8000, L501.9910, L501.9985 #### [facility] [address] [place], [address] Absolute Neut 1.1 X10 3/uL Low 2.0-7.7 [facility] Comment on above: Performed By: #### L 503.6150, M8200.2203, L3890.6005, L503.6550, L500.4100, L500.4050, L100.0100, L509.8000, L501.9910, L501.9985 #### [facility] [address] [place], [address] Basophils/100 WBC (Bld) 0.5 % Normal 0-[address] [facility] Comment on above: Performed By: #### L 503.6150, M8200.2203, L3890.6005, L503.6550, L500.4100, L500.4050, L100.0100, L509.8000, L501.9910, L501.9985 #### [facility] [address] [place], [address] Eosinophils/100 WBC (Bld) 8.6 % High 0-5 [facility] Comment on above: Performed By: #### L 503.6150, M8200.2203, L3890.6005, L503.6550, L500.4100, L500.4050, L100.0100, L509.8000, L501.9910, L501.9985 #### [facility] [address] [place], [place], [phone] Erythrocyte distribution width (RBC) [Ratio] 13.0 % Normal 11.6-14.6 [facility] Comment on above: Performed By: #### L 503.6150, M8200.2203, L3890.6005, L503.6550, L500.4100, L500.4050, L100.0100, L509.8000, L501.9910, L501.9985 #### [facility] [address] [place], [place], [phone] Hematocrit (Bld) [Volume fraction] 40.6 % Normal 40-54 [facility] Comment on above: Performed By: #### L 503.6150, M8200.2203, L3890.6005, L503.6550, L500.4100, L500.4050, L100.0100, L509.8000, L501.9910, L501.9985 #### [facility] [address] [place], [place], [phone] Hemoglobin (Bld) [Mass/Vol] 13.4 g/dL Normal 13.0-16.5 [facility] Comment on above: Performed By: #### L 503.6150, M8200.2203, L3890.6005, L503.6550, L500.4100, L500.4050, L100.0100, L509.8000, L501.9910, L501.9985 #### [facility] [address] [place], [address] IG% 0.300 Normal 0.0-0.9 [facility] Comment on above: Result Comment: IG% - Immature Granulocytes (promyelocytes, myelocytes and metamyelocytes) > 1% indicates that a LEFT SHIFT is Present. Performed By: #### L 503.6150, M8200.2203, L3890.6005, L503.6550, L500.4100, L500.4050, L100.0100, L509.8000, L501.9910, L501.9985 #### [facility] [address] [place], [address] Lymphocytes/100 WBC (Bld) 51.4 % High 19-41 [facility] Comment on above: Performed By: #### L 503.6150, M8200.2203, L3890.6005, L503.6550, L500.4100, L500.4050, L100.0100, L509.8000, L501.9910, L501.9985 #### [facility] [address] [place], [address] MCH (RBC) [Entitic mass] 31.3 pg Normal 27.0-32.0 [facility] Comment on above: Performed By: #### L 503.6150, M8200.2203, L3890.6005, L503.6550, L500.4100, L500.4050, L100.0100, L509.8000, L501.9910, L501.9985 #### [facility] [address] [place], [address] MCHC (RBC) [Mass/Vol] 33.0 g/dL Normal 32-36 [facility] Comment on above: Performed By: #### L 503.6150, M8200.2203, L3890.6005, L503.6550, L500.4100, L500.4050, L100.0100, L509.8000, L501.9910, L501.9985 #### [facility] [address] [place], [address] MCV (RBC) [Entitic vol] 94.9 fL High 80-[address] [facility] Comment on above: Performed By: #### L 503.6150, M8200.2203, L3890.6005, L503.6550, L500.4100, L500.4050, L100.0100, L509.8000, L501.9910, L501.9985 #### [facility] [address] [facility] [place], [address] ( Monocytes/100 WBC (Bld) 10.2 % High 0-[address] [facility] Comment on above: Performed By: #### L 503.6150, M8200.2203, L3890.6005, L503.6550, L500.4100, L500.4050, L100.0100, L509.8000, L501.9910, L501.9985 #### [facility] [address] [facility] [place], [address] ([phone]) Neutrophils/100 WBC (Bld) 29.0 % Low 47-70 [facility] Comment on above: Performed By: #### L 503.6150, M8200.2203, L3890.6005, L503.6550, L500.4100, L500.4050, L100.0100, L509.8000, L501.9910, L501.9985 #### [facility] [address] [facility] [place], [address] Nucleated RBC (Bld) [#/Vol] 0 10*3/uL Normal 0-5 [facility] Comment on above: Performed By: #### L 503.6150, M8200.2203, L3890.6005, L503.6550, L500.4100, L500.4050, L100.0100, L509.8000, L501.9910, L501.9985 #### [facility] [address] [facility] [place], [address] Platelet mean volume (Bld) [Entitic vol] 9.9 fL Normal 6.2-12.0 [facility] Comment on above: Performed By: #### L 503.6150, M8200.2203, L3890.6005, L503.6550, L500.4100, L500.4050, L100.0100, L509.8000, L501.9910, L501.9985 #### [facility] [address] [place], [address] Platelets (Bld) [#/Vol] 223 10*3/uL Normal 150-450 [facility] Comment on above: Performed By: #### L 503.6150, M8200.2203, L3890.6005, L503.6550, L500.4100, L500.4050, L100.0100, L509.8000, L501.9910, L501.9985 #### [facility] [address] [place], [address] RBC (Bld) [#/Vol] 4.28 10*6/uL Low 4.6-6.[address] [facility] Comment on above: Performed By: #### L 503.6150, M8200.2203, L3890.6005, L503.6550, L500.4100, L500.4050, L100.0100, L509.8000, L501.9910, L501.9985 #### [facility] [address] [place], [address] RDW SD 45.1 fl High 35.1-43.9 [facility] Comment on above: Performed By: #### L 503.6150, M8200.2203, L3890.6005, L503.6550, L500.4100, L500.4050, L100.0100, L509.8000, L501.9910, L501.9985 #### [facility] [address] [place], [address] WBC (Bld) [#/Vol] 3.8 10*3/uL Low 4.4-11.0 [facility] Comment on above: Performed By: #### L 503.6150, M8200.2203, L3890.6005, L503.6550, L500.4100, L500.4050, L100.0100, L509.8000, L501.9910, L501.9985 #### [facility] [address] [place], [address] Comprehensive Metabolic Prof ilon 04-30-2024 Albumin [Mass/Vol] 4.3 g/dL Normal 3.2-5.0 [facility] Comment on above: Performed By: #### L 501.9985, L509.8002, L100.0100, M8200.2203, L3890.6006, L500.4050, L500.4100, L503.6150, L503.6550 #### [facility] [address] [place], [place], [id number] Albumin/Globulin [Mass ratio] 1.4 {ratio} Normal 0.9-2.4 [facility] Comment on above: Performed By: #### L 501.9985, L509.8002, L100.0100, M8200.2203, L3890.6006, L500.4050, L500.4100, L503.6150, L503.6550 #### [facility] [address] [place], [address] ALK P 63 U/L Normal 45-117 [facility] Comment on above: Performed By: #### L 501.9985, L509.8002, L100.0100, M8200.2203, L3890.6006, L500.4050, L500.4100, L503.6150, L503.6550 #### [facility] [address] [facility] [address] [place], [place], [phone] ALT [Catalytic activity/Vol] 16 U/L Normal 16-61 [facility] Comment on above: Performed By: #### L 501.9985, L509.8002, L100.0100, M8200.2203, L3890.6006, L500.4050, L500.4100, L503.6150, L503.6550 #### [facility] [address] [place], [address] AST [Catalytic activity/Vol] 10 U/L Low 15-37 [facility] Comment on above: Performed By: #### L 501.9985, L509.8002, L100.0100, M8200.2203, L3890.6006, L500.4050, L500.4100, L503.6150, L503.6550 #### [facility] [address] [place], [address] Bilirubin [Mass/Vol] 0.50 mg/dL Normal 0.20-1.00 [facility] Comment on above: Result Comment: For patients on eltrombopag therapy, use of Dimension Monitor TBIL is not recommended. Performed By: #### L 501.9985, L509.8002, L100.0100, M8200.2203, L3890.6006, L500.4050, L500.4100, L503.6150, L503.6550 #### [facility] [address] [place], [address] BUN/CRE 12.2 RATIO Normal 10-20 [facility] Comment on above: Performed By: #### L 501.9985, L509.8002, L100.0100, M8200.2203, L3890.6006, L500.4050, L500.4100, L503.6150, L503.6550 #### [facility] [address] [place], [address] CA,Total 9.1 mg/dL Normal 8.5-10.1 [facility] Comment on above: Performed By: #### L 501.9985, L509.8002, L100.0100, M8200.2203, L3890.6006, L500.4050, L500.4100, L503.6150, L503.6550 #### [facility] [address] [place], [address] Chloride [Moles/Vol] 108 mmol/L High 98-107 [facility] Comment on above: Performed By: #### L 501.9985, L509.8002, L100.0100, M8200.2203, L3890.6006, L500.4050, L500.4100, L503.6150, L503.6550 #### [facility] [address] [place], [address] CO2 [Moles/Vol] 26.0 mmol/L Normal 21.0-32.0 [facility] Comment on above: Performed By: #### L 501.9985, L509.8002, L100.0100, M8200.2203, L3890.6006, L500.4050, L500.4100, L503.6150, L503.6550 #### [facility] [address] [place], [address] Creatinine [Mass/Vol] 1.23 mg/dL Normal 0.70-1.30 [facility] Comment on above: Result Comment: The validity of the calculated GFR GFRAA in patients over 70 years has not been determined. Clinical correlation is essential. Performed By: #### L 501.9985, L509.8002, L100.0100, M8200.2203, L3890.6006, L500.4050, L500.4100, L503.6150, L503.6550 #### [facility] [address] [place], [address] EST GFR - AA 78 mL/min Normal >60 [facility] Comment on above: Result Comment: Afri can Iraqi GFR Calc Performed By: #### L 501.9985, L509.8002, L100.0100, M8200.2203, L3890.6006, L500.4050, L500.4100, L503.6150, L503.6550 #### [facility] [address] [place], [place], [phone] ([phone]) GAP 5 Normal 5-15 [facility] Comment on above: Performed By: #### L 501.9985, L509.8002, L100.0100, M8200.2203, L3890.6006, L500.4050, L500.4100, L503.6150, L503.6550 #### [facility] [address] [place], [place], [phone] ([phone]) GFR/1.73 sq M.predicted among non-blacks MDRD (S/P/Bld) [Vol rate/Area] 65 mL/min/{1.73_m2} Normal >60 [facility] Comment on above: Result Comment: Non- GFR Calc Performed By: #### L 501.9985, L509.8002, L100.0100, M8200.2203, L3890.6006, L500.4050, L500.4100, L503.6150, L503.6550 #### [facility] [address] [place], [place], [phone] (925) Globulin (S) [Mass/Vol] 3.1 g/dL Normal 2.2-4.[address] [facility] Comment on above: Performed By: #### L 501.9985, L509.8002, L100.0100, M8200.2203, L3890.6006, L500.4050, L500.4100, L503.6150, L503.6550 #### [facility] [address] [place], [address] Glucose [Mass/Vol] 134 mg/dL High 74-106 [facility] Comment on above: Result Comment: Fast ing Glucose result greater than or equal to 126 mg/dL suggests DIABETES MELLITUS per A.D.A. criteria. Performed By: #### L 501.9985, L509.8002, L100.0100, M8200.2203, L3890.6006, L500.4050, L500.4100, L503.6150, L503.6550 #### [facility] [address] [place], [address] Potassium [Moles/Vol] 3.9 mmol/L Normal 3.5-5.1 [facility] Comment on above: Performed By: #### L 501.9985, L509.8002, L100.0100, M8200.2203, L3890.6006, L500.4050, L500.4100, L503.6150, L503.6550 #### [facility] [address] [facility] [place], [address] Sodium [Moles/Vol] 139 mmol/L Normal 136-145 [facility] Comment on above: Performed By: #### L 501.9985, L509.8002, L100.0100, M8200.2203, L3890.6006, L500.4050, L500.4100, L503.6150, L503.6550 #### [facility] [address] [facility] [place], [address] T PROT 7.4 g/dL Normal 6.4-8.2 [facility] Comment on above: Performed By: #### L 501.9985, L509.8002, L100.0100, M8200.2203, L3890.6006, L500.4050, L500.4100, L503.6150, L503.6550 #### [facility] [address] [facility] [place], [address] Urea nitrogen [Mass/Vol] 15 mg/dL Normal 7-18 [facility] Comment on above: Performed By: #### L 501.9985, L509.8002, L100.0100, M8200.2203, L3890.6006, L500.4050, L500.4100, L503.6150, L503.6550 #### [facility] [address] [place], [address] Ferritinon 04-30-2024 Ferritin [Mass/Vol] 8 ng/mL Low 26-[address] [facility] Comment on above: Performed By: #### L 501.9985, L509.8002, L100.0100, M8200.2203, L3890.6006, L500.4050, L500.4100, L503.6150, L503.6550 #### [facility] [address] [place], [address] HIV - WCHon 04-30-2024 HIV Non-Reactive Normal Nonreactive [facility] Comment on above: Performed By: #### L 501.9985, L509.8002, L100.0100, M8200.2203, L3890.6006, L500.4050, L500.4100, L503.6150, L503.6550 #### [facility] [address] [place], [address] Hemoglobin A1con 04-30-2024 HbA1c (Bld) [Mass fraction] 6.3 % High 3.8-5.6 [facility] Comment on above: Result Comment: Norm al < 5.7 % Prediabetic 5.7 - 6.4 % Diabetic >or= 6.5 % Please note range changes. Performed By: #### L 501.9985, L509.8002, L100.0100, M8200.2203, L3890.6006, L500.4050, L500.4100, L503.6150, L503.6550 #### [facility] [address] [place], [place], [id number] Ironon 04-30-2024 Iron [Mass/Vol] 61 ug/dL Low 65-175 [facility] Comment on above: Performed By: #### L 501.9985, L509.8002, L100.0100, M8200.2203, L3890.6006, L500.4050, L500.4100, L503.6150, L503.6550 #### [facility] [address] [facility] [place], [address] L509.8000on 04-30-2024 Syphilis Abs Non-Reactive Normal [facility] Comment on above: Performed By: #### L 501.9985, L509.8002, L100.0100, M8200.2203, L3890.6006, L500.4050, L500.4100, L503.6150, L503.6550 #### [facility] [address] [facility] [place], [address] M8200.2203on 04-30-2024 M8200.2203 Pending Chlamydia Trachomatis PCR NEGATIVE for Chlamydia trachomatis N. gonorrhoeae PCR Negative for N. gonorrhoeae Normal [facility] Comment on above: Performed By: #### L 501.9985, L509.8002, L100.0100, M8200.2203, L3890.6006, L500.4050, L500.4100, L503.6150, L503.6550 #### [facility] [address] [facility] [place], [place], [phone] PSA,Total - Annual Screenon 04-30-2024 PSA,TOT SCREEN 2.42 ng/mL Normal 0.00-4.00 [facility] Comment on above: Result Comment: This test was performed using the TPSA assay method for the [employer] system. Values obtained with different assay methods cannot be used interchangably. When changing PSA assays in the course of monitoring a patient, additional sequential testing should be carried out to confirm baseline values. Performed By: #### L 501.9985, L509.8002, L100.0100, M8200.2203, L3890.6006, L500.4050, L500.4100, L503.6150, L503.6550 #### [facility] [address] [place], [address] CBC W/Diff, Automatedon 10-0 -2023 Absolute Lymph 2.33 X10 3/uL Normal 0.83-4.51 [facility] Comment on above: Performed By: #### L 501.9985, L509.8002, L100.0100, M8200.2203, L3890.6006, L500.4050, L500.4100, L503.6150, L503.6550 #### [facility] [address] [place], [address] Absolute Neut 1.2 X10 3/uL Low 2.0-7.7 [facility] Comment on above: Performed By: #### L 501.9985, L509.8002, L100.0100, M8200.2203, L3890.6006, L500.4050, L500.4100, L503.6150, L503.6550 #### [facility] [address] [place], [address] Basophils/100 WBC (Bld) 0.7 % Normal 0-[address] [facility] Comment on above: Performed By: #### L 501.9985, L509.8002, L100.0100, M8200.2203, L3890.6006, L500.4050, L500.4100, L503.6150, L503.6550 #### [facility] [address] [place], [address] Eosinophils/100 WBC (Bld) 8.1 % High 0-5 [facility] Comment on above: Performed By: #### L 501.9985, L509.8002, L100.0100, M8200.2203, L3890.6006, L500.4050, L500.4100, L503.6150, L503.6550 #### [facility] [address] [place], [place], [id number] Erythrocyte distribution width (RBC) [Ratio] 13.0 % Normal 11.6-14.6 [facility] Comment on above: Performed By: #### L 501.9985, L509.8002, L100.0100, M8200.2203, L3890.6006, L500.4050, L500.4100, L503.6150, L503.6550 #### [facility] [address] [place], [place], [id number] Hematocrit (Bld) [Volume fraction] 40.5 % Normal 40-54 [facility] Comment on above: Performed By: #### L 501.9985, L509.8002, L100.0100, M8200.2203, L3890.6006, L500.4050, L500.4100, L503.6150, L503.6550 #### [facility] [address] [place], [place], [id number] Hemoglobin (Bld) [Mass/Vol] 13.5 g/dL Normal 13.0-16.5 [facility] Comment on above: Performed By: #### L 501.9985, L509.8002, L100.0100, M8200.2203, L3890.6006, L500.4050, L500.4100, L503.6150, L503.6550 #### [facility] [address] [facility] [place], [place], [id number] IG% 0.200 Normal 0.0-0.9 [facility] Comment on above: Result Comment: IG% - Immature Granulocytes (promyelocytes, myelocytes and metamyelocytes) > 1% indicates that a LEFT SHIFT is Present. Performed By: #### L 501.9985, L509.8002, L100.0100, M8200.2203, L3890.6006, L500.4050, L500.4100, L503.6150, L503.6550 #### [facility] [address] [place], [address] Lymphocytes/100 WBC (Bld) 53.7 % High 19-41 [facility] Comment on above: Performed By: #### L 501.9985, L509.8002, L100.0100, M8200.2203, L3890.6006, L500.4050, L500.4100, L503.6150, L503.6550 #### [facility] [address] [place], [address] MCH (RBC) [Entitic mass] 31.5 pg Normal 27.0-32.0 [facility] Comment on above: Performed By: #### L 501.9985, L509.8002, L100.0100, M8200.2203, L3890.6006, L500.4050, L500.4100, L503.6150, L503.6550 #### [facility] [address] [place], [address] MCHC (RBC) [Mass/Vol] 33.3 g/dL Normal 32-36 [facility] Comment on above: Performed By: #### L 501.9985, L509.8002, L100.0100, M8200.2203, L3890.6006, L500.4050, L500.4100, L503.6150, L503.6550 #### [facility] [address] [place], [address] MCV (RBC) [Entitic vol] 94.4 fL High 80-[address] [facility] Comment on above: Performed By: #### L 501.9985, L509.8002, L100.0100, M8200.2203, L3890.6006, L500.4050, L500.4100, L503.6150, L503.6550 #### [facility] [address] [place], [address] Monocytes/100 WBC (Bld) 10.4 % High 0-[address] [facility] Comment on above: Performed By: #### L 501.9985, L509.8002, L100.0100, M8200.2203, L3890.6006, L500.4050, L500.4100, L503.6150, L503.6550 #### [facility] [address] [place], [address] Neutrophils/100 WBC (Bld) 26.9 % Low 47-70 [facility] Comment on above: Performed By: #### L 501.9985, L509.8002, L100.0100, M8200.2203, L3890.6006, L500.4050, L500.4100, L503.6150, L503.6550 #### [facility] [address] [place], [address] (790) Nucleated RBC (Bld) [#/Vol] 0 10*3/uL Normal 0-5 [facility] Comment on above: Performed By: #### L 501.9985, L509.8002, L100.0100, M8200.2203, L3890.6006, L500.4050, L500.4100, L503.6150, L503.6550 #### [facility] [address] [place], [address] (597) Platelet mean volume (Bld) [Entitic vol] 10.0 fL Normal 6.2-12.0 [facility] Comment on above: Performed By: #### L 501.9985, L509.8002, L100.0100, M8200.2203, L3890.6006, L500.4050, L500.4100, L503.6150, L503.6550 #### [facility] [address] [place], [address] (730 Platelets (Bld) [#/Vol] 243 10*3/uL Normal 150-450 [facility] Comment on above: Performed By: #### L 501.9985, L509.8002, L100.0100, M8200.2203, L3890.6006, L500.4050, L500.4100, L503.6150, L503.6550 #### [facility] [address] [place], [address] RBC (Bld) [#/Vol] 4.29 10*6/uL Low 4.6-6.[address] [facility] Comment on above: Performed By: #### L 501.9985, L509.8002, L100.0100, M8200.2203, L3890.6006, L500.4050, L500.4100, L503.6150, L503.6550 #### [facility] [address] [place], [place], [id number] ([phone]) RDW SD 44.4 fl High 35.1-43.9 [facility] Comment on above: Performed By: #### L 501.9985, L509.8002, L100.0100, M8200.2203, L3890.6006, L500.4050, L500.4100, L503.6150, L503.6550 #### [facility] [address] [place], [address] WBC (Bld) [#/Vol] 4.3 10*3/uL Low 4.4-11.0 [facility] Comment on above: Performed By: #### L 501.9985, L509.8002, L100.0100, M8200.2203, L3890.6006, L500.4050, L500.4100, L503.6150, L503.6550 #### [facility] [address] [place], [address] Chlamydia/GC BRISSA aptimaon CHLAMY,NUC ACID Normal [facility] Comment on above: Result Comment: WRON G TEST ORDERED.RANGLE Performed By: #### L 501.9985, L509.8002, L100.0100, M8200.2203, L3890.6006, L500.4050, L500.4100, L503.6150, L503.6550 #### [facility] [address] [place], [place], [address] GC BY NUC ACID Normal [facility] Comment on above: Result Comment: WRON G TEST ORDERED.RANGLE Performed By: #### L 501.9985, L509.8002, L100.0100, M8200.2203, L3890.6006, L500.4050, L500.4100, L503.6150, L503.6550 #### [facility] [address] [place], [place], [id number] Ferritinon 03-06-2024 Ferritin [Mass/Vol] 8 ng/mL Low 26-[address] [facility] Comment on above: Performed By: #### L 501.9985, L509.8002, L100.0100, M8200.2203, L3890.6006, L500.4050, L500.4100, L503.6150, L503.6550 #### [facility] [address] [place], [place], [id number] HIV - WCHon 03-06-2024 HIV Non-Reactive Normal Nonreactive [facility] Comment on above: Performed By: #### L 501.9985, L509.8002, L100.0100, M8200.2203, L3890.6006, L500.4050, L500.4100, L503.6150, L503.6550 #### [facility] [address] [place], [place], [address] Hemoglobin A1con 03-06-2024 HbA1c (Bld) [Mass fraction] 6.3 % High 3.8-5.6 [facility] Comment on above: Result Comment: Norm al < 5.7 % Prediabetic 5.7 - 6.4 % Diabetic >or= 6.5 % Please note range changes. Performed By: #### L 501.9985, L509.8002, L100.0100, M8200.2203, L3890.6006, L500.4050, L500.4100, L503.6150, L503.6550 #### [facility] [address] [facility] [place], [address] Ironon 03-06-2024 Iron [Mass/Vol] 44 ug/dL Low 65-175 [facility] Comment on above: Performed By: #### L 501.9985, L509.8002, L100.0100, M8200.2203, L3890.6006, L500.4050, L500.4100, L503.6150, L503.6550 #### [facility] [address] [facility] [place], [address] L509.8000on 03-06-2024 Syphilis Abs Non-Reactive Normal [facility] Comment on above: Performed By: #### L 501.9985, L509.8002, L100.0100, M8200.2203, L3890.6006, L500.4050, L500.4100, L503.6150, L503.6550 #### [facility] [address] [facility] [place], [address] M8200.2203on 03-06-2024 M8200.2203 Pending Chlamydia Trachomatis PCR NEGATIVE for Chlamydia trachomatis N. gonorrhoeae PCR Negative for N. gonorrhoeae Normal [facility] Comment on above: Performed By: #### L 501.9985, L509.8002, L100.0100, M8200.2203, L3890.6006, L500.4050, L500.4100, L503.6150, L503.6550 #### [facility] [address] [place], [address] CNPMary Jo 11-10-2023 CNPN Telephone (SUZI) -------- ALEJANDRO REYES ([id number]) 1965 M Date Time Provider Department 11/10/23 WANDA GARCIAS During your visit today, we recorded the following information about you: Wanda Garcias PA-C 11/10/2023 9:[address] results do not show a scaphoid fracture. Ok to discontinue brace as tolerated. Follow up in 4 weeks if no better. Relayed message to patient. Wanda Garcias PA-C Allergies As of Date: 11/10/2023 Noted Allergy Reaction DEMERAL (MEPERIDINE) 07/03/2013 4 - Hives DOXYCYCLINE 07/03/2013 4 - Hives PHENERGAN (PROMETHAZINE) 07/03/2013 14 - Other: See Comments Comments: muscle Date Reviewed: 11/09/2023 Reviewed by: Wanda Garcias PA-C - Fully Assessed Prescriptions as of 11/10/2023 - alpha tocopheryl acetate 400 unit capsule must be the d form, not the dl form - liraglutide (VICTOZA 3-TOD) 0.6 mg/0.1 mL (18 mg/3 mL) pnij Inject 0.6 mg subcutaneously once daily. - metFORMIN 500 mg tablet Take 500 mg by mouth once daily. - pantoprazole 40 mg tablet Take 40 mg by mouth once daily. - PSEUDOEPHEDRINE HCL (SUDAFED ORAL) Take by mouth as needed. Problem List As Of Date 11/10/2023 Noted Resolved Fatty liver disease, nonalcoholic [K76.0] 08/03/2013 Encounter Status:Closed by WANDA GARCIAS on 6/6/24 Normal [facility] CT WRIST WO IVCON RTon 11-09 CT WRIST WO IVCON RT * * *Final Report* * * DATE OF EXAM: Nov 10 2023 8:26AM [facility] 0095 - CT WRIST WO IVCON RT / PROCEDURE REASON: Right wrist pain * * * * Physician Interpretation * * * * EXAMINATION: CT WRIST WO IVCON RT CLINICAL HISTORY: Right wrist pain TECHNIQUE: Axial CT of the right wrist was obtained. Coronal and sagittal reformats were reviewed. Bone and soft tissue reconstruction algorithms were utilized. No metal CT Radiation dose: Integrated Dose-length product (DLP) for this visit = 171 mGy*cm. CT Dose Reduction Employed: Automated exposure control (AEC) COMPARISON: Radiographs dated 11/09/2023 RESULT: No acute fracture or dislocation. Specifically, no acute fracture is seen in the scaphoid. 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 Small nonacute appearing linear radiolucency along the deep aspect of the pisiform is favored to represent a vascular channel. Carpal alignment is preserved. Joint spaces are maintained. Minimal osteophyte formation noted at the distal radioulnar joint. Small reactive cyst noted in the distal pole of the scaphoid. Benign bone island is noted in the distal ulna. No joint effusion. Soft tissues are unremarkable. Acid Tester (topogram) images: No significant additional findings. IMPRESSION: No scaphoid fracture. Additional findings as described. Systems Analyst Developer: CHEN Transcribe Date/Time: Nov 10 2023 9:00A Dictated by : MARY ROSA MD This examination was interpreted and the report reviewed and electronically signed by: MARY ROSA MD on Nov 10 2023 9:11AM EST [id number] IACN Normal [facility] CT Wrist - right WO contrast on 11-10-2023 IMPRESSION: No scaphoid fracture. Additional findings as described. Systems Analyst Developer: CHEN Transcribe Date/Time: Nov 10 2023 9:00A Dictated by : MARY ROSA MD This examination was interpreted and the report reviewed and electronically signed by: MARY ROSA MD on Nov 10 2023 9:11AM EST DIVISION OF RADIOLOGY * * *Final Report* * * DATE OF EXAM: Nov 10 2023 8:26AM [facility] 0095 - CT WRIST WO IVCON RT / PROCEDURE REASON: Right wrist pain * * * * Physician Interpretation * * * * EXAMINATION: CT WRIST WO IVCON RT CLINICAL HISTORY: Right wrist pain TECHNIQUE: Axial CT of the right wrist was obtained. Coronal and sagittal reformats were reviewed. Bone and soft tissue reconstruction algorithms were utilized. No metal CT Radiation dose: Integrated Dose-length product (DLP) for this visit = 171 mGy*cm. CT Dose Reduction Employed: Automated exposure control (AEC) COMPARISON: Radiographs dated 11/09/2023 RESULT: No acute fracture or dislocation. Specifically, no acute fracture is seen in the scaphoid. 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 Small nonacute appearing linear radiolucency along the deep aspect of the pisiform is favored to represent a vascular channel. Carpal alignment is preserved. Joint spaces are maintained. Minimal osteophyte formation noted at the distal radioulnar joint. Small reactive cyst noted in the distal pole of the scaphoid. Benign bone island is noted in the distal ulna. No joint effusion. Soft tissues are unremarkable. Acid Tester (topogram) images: No significant additional findings. DIVISION OF RADIOLOGY Provider, [facility] [place] - 11/10/2023 * * *Final Report* * * DATE OF EXAM: Nov 10 2023 8:26AM [facility] 0095 - CT WRIST WO IVCON RT / PROCEDURE REASON: Right wrist pain * * * * Physician Interpretation * * * * EXAMINATION: CT WRIST WO IVCON RT CLINICAL HISTORY: Right wrist pain TECHNIQUE: Axial CT of the right wrist was obtained. Coronal and sagittal reformats were reviewed. Bone and soft tissue reconstruction algorithms were utilized. No metal CT Radiation dose: Integrated Dose-length product (DLP) for this visit = 171 mGy*cm. CT Dose Reduction Employed: Automated exposure control (AEC) COMPARISON: Radiographs dated 11/09/2023 RESULT: No acute fracture or dislocation. Specifically, no acute fracture is seen in the scaphoid. 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 Small nonacute appearing linear radiolucency along the deep aspect of the pisiform is favored to represent a vascular channel. Carpal alignment is preserved. Joint spaces are maintained. Minimal osteophyte formation noted at the distal radioulnar joint. Small reactive cyst noted in the distal pole of the scaphoid. Benign bone island is noted in the distal ulna. No joint effusion. Soft tissues are unremarkable. Acid Tester (topogram) images: No significant additional findings. IMPRESSION IMPRESSION: No scaphoid fracture. Additional findings as described. Systems Analyst Developer: CHEN Transcribe Date/Time: Nov 10 2023 9:00A Dictated by : MARY ROSA MD This examination was interpreted and the report reviewed and electronically signed by: MARY ROSA MD on Nov 10 2023 9:11AM EST [facility] Radiology Study observation (narrative) [facility] CT Wrist - right WO contrast Ordered By: Ccf Provider on 11-10-2023 [facility] CNOVon 11-09-2023 CNOV Office Visit (ORTHBR) -------- ALEJANDRO REYES ([id number]) 1965 M Date Time Provider Department 11/09/23 8:30 AM WANDA GARCIAS During your visit today, we recorded the following information about you: Weight Height 79.4 kg 1.778 m Wanda Garcias PA-C 11/09/2023 10:39 AM Signed Wanda Garcias PA-C Department of Orthopaedics Orthopaedics [address] [place] [address] Dept: [phone] Dept November 09, 2023 SUBJECTIVE: CHIEF COMPLAINT: New and Pain of the Right Arm HPI: Mr. Alejandro Reyes is a 58 year old right hand dominant male. He presents today with right wrist pain that has been present since he tripped on a tarp and landed on bilateral FOOSH on 11/03/2023. He was seen that day in the ED where images were obtained and he was discharged home in a right thumb spica splint. He presents today for follow up. Today he rates his pain a 1 on a scale of 0 to 10. He has not been taking any medications for the pain. The pain is worse with activity. He has remained in his thumb spica brace. He previously underwent bilateral carpal tunnel releases and broke both forearm bones in the 80s, treated with casting. He denies any numbness/tingling. Past Medical History: PAST MEDICAL HISTORY Diagnosis Date Diabetes (HCC) Hemochromatosis History of bicuspid heart valve EVANS (nonalcoholic steatohepatitis) Past Surgical History: PAST SURGICAL HISTORY Procedure Laterality Date TONSILLECTOMY HX URETER DISSECTION Family History: FAMILY HISTORY Problem Relation Age of Onset Breast Cancer Mother Heart Mother Heart Father Hypertension Father Blood Disease Father Arthritis Father Social History: Social History Tobacco Use Smoking status: Never Substance Use Topics Alcohol use: No Drug use: No Medications: Current Outpatient Medications Medication Sig alpha tocopheryl acetate 400 unit capsule must be the d form, not the dl form liraglutide (VICTOZA 3-TOD) 0.6 mg/0.1 mL (18 mg/3 mL) pnij Inject 0.6 mg subcutaneously once daily. metFORMIN 500 mg tablet Take 500 mg by mouth once daily. pantoprazole 40 mg tablet Take 40 mg by mouth once daily. PSEUDOEPHEDRINE HCL (SUDAFED ORAL) Take by mouth as needed. No current facility-administe red medications for this visit. Allergies: Demeral [Meperidine], Doxycycline, and Phenergan [Promethazine] ROS: General: negative for fatigue, malaise, weight loss/gain Musculoskeletal: see HPI Psych: no depression, anxiety OBJECTIVE: Mr. Alejandro Reyes is a pleasant 58 year old in no apparent distress. Gen:Ht 5' 10 (1.78m) Wt 175 lb (79.4kg) BMI 25.11 kg/(m2). nl development, non obese, no deformities ENT: Normocephalic, normal hearing, moist mucosa CV: Pulses:Radial= 2+ and symmetric, capillary refill < 2 secs, no peripheral edema/varicosities Skin: no rash, bruising or lesions. Good turgor. Psych: cooperative and appropriate, alert and oriented x 3, good mood and affect. Musculoskeletal: No obvious swelling, ecchymosis or deformity Snuffbox non-tender to palpation IMAGING: Images taken today and to my interpretation again demonstrate a cortical lucency at the scaphoid waist. Full imaging report available in [facility]. ASSESSMENT: M25.531 Right wrist pain (primary encounter diagnosis) S62.034A Closed nondisplaced fracture of proximal third of scaphoid bone of right wrist, initial encounter PLAN: Reviewed images taken today and take previously. Discussed with patient that I am concerned he has a scaphoid fracture. Diagnostic CT ordered today as his physical exam is not typical. Patient agreeable with plan and will remain in his thumb spica brace until CT is resulted. We will call him to discuss results and arrange appropriate follow up. FOLLOW UP INSTRUCTIONS: As appropriate after CT Wanda Garcias PA-C Allergies As of Date: 11/09/2023 Noted Allergy Reaction DEMERAL (MEPERIDINE) 07/03/2013 4 - Hives DOXYCYCLINE 07/03/2013 4 - Hives PHENERGAN (PROMETHAZINE) 07/03/2013 14 - Other: See Comments Comments: muscle Date Reviewed: 11/09/2023 Reviewed by: Wanda Garcias PA-C - Fully Assessed Reason for Visit: New [343175] Pain [78] Primary Visit Diagnosis:Right wrist pain [M25.531] Other Visit Diagnosis:Closed nondisplaced fracture of proximal third of scaphoid bone of right wrist, initial encounter [S62.034A] Order(s):CT WRIST WO IVCON RIGHT [[id number]] Order #: [id number] FUTURE Prescriptions as of 11/09/2023 - alpha tocopheryl acetate 400 unit capsule must be the d form, not the dl form - liraglutide (VICTOZA 3-TOD) 0.6 mg/0.1 mL (18 mg/3 mL) pnij Inject 0.6 mg subcutaneously once daily. - metFORMIN 500 mg tablet Take 500 mg by mouth once daily. - pantoprazole 40 mg tablet Take 40 mg by mouth once daily. - PSEUDOEPHEDRINE HCL (SUDAFED ORAL) Take by mouth (more content not included)... Normal [facility] Wrist min 3 Viewson 11-08-19 24 Wrist min 3 Views [facility] Services [address] [place], [place] [id number] Wrist min 3 Views MR#: [id number] Acct: [id number] Name: ALEJANDRO REYES Rep #: [id number] : 1965 M 58 From: Jun brown MD PCP: Dr. Jacinto Arroyo DO Status: REG CLI Study: Wrist min 3 Views Date of Exam: 11/08/23 Exam# [id number] Ordering Dr: Jacinto Arroyo DO [id number] INDICATION: PAIN/ FALL EXAMINATION/TECHNI QUE: X-RAY - RIGHT XR Wrist Min 3 Views 4 VIEWS COMPARISON: Prior study dated: 01/24/2018 FINDINGS: SOFT TISSUES: Mild diffuse soft tissue swelling. No radiopaque foreign body. BONES/JOINTS: No acute fracture or subluxation.. The carpal rows are well aligned. Chronic nonunited ulnar styloid fracture. Preservation of the joint space.. No sclerotic or destructive changes observed. RAD/Wrist min 3 Views IMPRESSION: No fracture or malalignment. Mild soft tissue swelling. Electronically Signed: Jun Moran MD at 14:38 EDT Reading Location ID and State: [address] [place] [address] Tel , Service support , CC: Dr. Jacinto Arroyo DO Systems Analyst Developer: Signed [facility] ED NOTEon 11-04-2023 ED NOTE HNO ID: [id number] Author: MOHIT BOLDEN, SOFYA Service: ? Author Type: Registered Nurse Type: ED Notes Filed: 11/03/2023 22:53 Note Text: Discharge instructions d/w pt and friend at bedside. Stated understanding with no further questions for this nurse. Encouraged f/u with PCP and referring doctors given. Stated understanding. Prescription(S) were given X1. PT placed in wrist spica in position of comfort. [facility] ED PROV NOTEon 11-03-2023 ED PROV NOTE HNO ID: [id number] Author: SHEILA MOONEY MD Service: ? 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 Tripped while doing yard work Patient presenting secondary to a fall from standing. Patient reports that he fell on bilateral outstretched hands and essentially having pain in both of his wrists. He did hit his head, only was mild injury, no loss of consciousness patient is not anticoagulated. PAST MEDICAL HISTORY Diagnosis Date Diabetes Hemochromatosis History of bicuspid heart valve EVANS (nonalcoholic steatohepatitis) PAST SURGICAL HISTORY Procedure Laterality Date TONSILLECTOMY HX URETER DISSECTION FAMILY HISTORY Problem Relation Age of Onset Breast Cancer Mother Heart Mother Heart Father Hypertension Father Blood Disease Father Arthritis Father Social History Tobacco Use Smoking status: Never Smokeless tobacco: Not on file Substance and Sexual Activity Alcohol use: No Drug use: No Sexual activity: Yes Partners: Male ALLERGIES Allergen Reactions Demeral [Meperidine] Hives Doxycycline Hives Phenergan [Prometha* Other: See Comments muscle Review of Systems Musculoskeletal: Bilateral wrist pain Neurological: Negative for weakness and numbness. Hematological: Does not bruise/bleed easily. Physical Exam Vitals [11/03/232028] BP Pulse Temp Temp src Resp SpO2 Weight Height 131/78 63 36.8 ?C (98.2 ?F) Oral 18 100 % 79.4 kg (175 lb) -- Physical Exam Vitals and nursing note reviewed. Constitutional: General: He is not in acute distress. Appearance: Normal appearance. He is well-developed. HENT: Head: Normocephalic and atraumatic. Nose: Nose normal. Mouth/Throat: Mouth: Mucous membranes are moist. Eyes: Conjunctiva/sclera : Conjunctivae normal. Pupils: Pupils are equal, round, and reactive to light. Cardiovascular: Rate and Rhythm: Normal rate and regular rhythm. Heart sounds: Normal heart sounds. Comments: Radial pulses 2+ bilaterally Pulmonary: Effort: Pulmonary effort is normal. No respiratory distress. Breath sounds: Normal breath sounds. Abdominal: General: Bowel sounds are normal. There is no distension. Palpations: Abdomen is soft. Tenderness: There is no abdominal tenderness. Musculoskeletal: General: Swelling and tenderness present. Normal range of motion. Cervical back: Normal range of motion and neck supple. Comments: Examination the patient's bilateral upper extremities. Right arm patient complains of diffuse pain over the wrist, no localization of the anatomical snuffbox. There are some swelling noted in the hand but no focal tenderness. Normal range of motion but the patient does have some pain in the ulnar side of the wrist with range of motion Left upper extremity exam shows some focal tenderness over the ulnar styloid no tenderness over the anatomical snuffbox. Normal range of motion. Lymphadenopathy: Cervical: No cervical adenopathy. Skin: General: Skin is warm and dry. Capillary Refill: Capillary refill takes less than 2 seconds. Findings: No rash. Neurological: Mental Status: He is alert and oriented to person, place, and time. GCS: GCS eye subscore is 4. GCS verbal subscore is 5. GCS motor subscore is 6. Sensory: No sensory deficit. Motor: No weakness. Psychiatric: Mood and Affect: Mood normal. Diagnostic Testing ED Labs Ordered and Reviewed - No data to display Procedures ED Course / Clinical Impression Clinical Impressions as of 11/03/23 2223 Wrist pain Sprain of wrist, unspecified laterality, initial encounter Closed nondisplaced fracture of scaphoid of right wrist, unspecified portion of scaphoid, initial encounter MDM / Disposition / Plan Patient presenting for evaluation secondary to a fall with bilateral wrist injuries. Patient does report that he hit his head, no outward signs of head trauma no indication for head CT patient is [place] head CT negative. Patient's wrist x-rays per radiology demonstrate cortical lucency of the right scaphoid. I reevaluated the patient, he really does not localize over that area as far as tenderness, but complains more so of diffuse pain but does report that his pain in that wrist seems to be getting worse as time goes on. Patient be empirically immobilized in a thumb spica splint, will be given [place] for pain, follow-up with primary care for repeat x-ray in 2 weeks. Patient was discharged History and Record Review Clinical information obtained from an independent historian. History obtained f (more content not included)... [facility] XR WRIST 4V PA/LAT/OBL/SCAPH LTon 11-03-2023 XR WRIST 4V PA/LAT/OBL/SCAPH LT * * *Final Report* * * DATE OF EXAM: Nov 03 2023 9:24PM MDX 5272 - XR WRIST 4V PA/LAT/OBL/SCAPH LT / PROCEDURE REASON: Trauma * * * * Physician Interpretation * * * * EXAMINATION: XR WRIST 4V PA/LAT/OBL/SCAPH RT, XR WRIST 4V PA/LAT/OBL/SCAPH LT HISTORY: Trauma COMPARISON: None available. TECHNIQUE: 4 views of the right wrist. 4 views of the left wrist. FINDINGS: Right wrist: Cortical lucency only identified on the single view of the scaphoid waist concerning for nondisplaced fracture. No evidence of acute osseous abnormality. Ossicle at the ulnar styloid related to remote avulsion. No subluxation or dislocation. No significant degenerative changes. No radiopaque foreign body. Left wrist: No acute osseous abnormality. Normal alignment. Minimal degenerative changes of the thumb CMC joint. No radiopaque foreign body. IMPRESSION: 1. Cortical lucency at the right scaphoid waist concerning for nondisplaced fracture. Correlate with snuffbox tenderness. 2. No acute osseous abnormality left wrist. Systems Analyst Developer: [facility] Transcribe Date/Time: Nov 03 2023 9:52P Dictated by : SYDNIE HATFIELD MD This examination was interpreted and the report reviewed and electronically signed by: SYDNIE HATFIELD MD on Nov 03 2023 9:55PM EST [id number] [facility] XR WRIST 4V PA/LAT/OBL/SCAPH RTon 11-03-2023 XR WRIST 4V PA/LAT/OBL/SCAPH RT * * *Final Report* * * DATE OF EXAM: Nov 03 2023 9:24PM MDX 5273 - XR WRIST 4V PA/LAT/OBL/SCAPH RT / PROCEDURE REASON: Trauma * * * * Physician Interpretation * * * * EXAMINATION: XR WRIST 4V PA/LAT/OBL/SCAPH RT, XR WRIST 4V PA/LAT/OBL/SCAPH LT HISTORY: Trauma COMPARISON: None available. TECHNIQUE: 4 views of the right wrist. 4 views of the left wrist. FINDINGS: Right wrist: Cortical lucency only identified on the single view of the scaphoid waist concerning for nondisplaced fracture. No evidence of acute osseous abnormality. Ossicle at the ulnar styloid related to remote avulsion. No subluxation or dislocation. No significant degenerative changes. No radiopaque foreign body. Left wrist: No acute osseous abnormality. Normal alignment. Minimal degenerative changes of the thumb CMC joint. No radiopaque foreign body. IMPRESSION: 1. Cortical lucency at the right scaphoid waist concerning for nondisplaced fracture. Correlate with snuffbox tenderness. 2. No acute osseous abnormality left wrist. Systems Analyst Developer: [facility] Transcribe Date/Time: Nov 03 2023 9:52P Dictated by : SYDNIE HATFIELD MD This examination was interpreted and the report reviewed and electronically signed by: SYDNIE HATFIELD MD on Nov 03 2023 9:55PM EST [id number] IACN [facility] Absolute lymphocyte countOrd ered By: Jacinto Arroyo on 08-04-2023 Lymphocytes Auto (Unsp spec) [#/Vol] 2.01 10*3/uL 0.83-4.51 [facility] Automated lymphocyte count a s percentage of total leukocytesOrdered By: Jacinto Arroyo on 08-04-2023 Lymphocytes/100 WBC Auto (Unsp spec) 48.1 % 19-41 [facility] Basophil percentageOrdered B y: Jacinto Arroyo on 08-04-2023 Basophils/100 WBC (Bld) 0.7 % 0-[address] [facility] Eosinophils/100 WBC (Bld) 2.6 % 0-5 [facility] Hemoglobin (Bld) [Mass/Vol] 13.7 g/dL 13.0-16.5 [facility] Monocytes/100 WBC (Bld) 12.4 % 0-10 [facility] Neutrophils (Bld) [#/Vol] 1.5 10*3/uL 2.0-7.7 [facility] Neutrophils/100 WBC (Bld) 36.2 % 47-70 [facility] WBC (Bld) [#/Vol] 4.2 10*3/uL 4.4-11.0 [facility] Determination of erythrocyte mean corpuscular volume (MCV)Ordered By: Jacinto Arroyo on 08-04-2023 MCV (RBC) [Entitic vol] 93.5 fL 80-[address] [facility] Erythrocyte distribution wid th ratioOrdered By: Jacinto Arroyo on 08-04-2023 Erythrocyte distribution width (RBC) [Ratio] 12.7 % 11.6-14.6 [facility] Erythrocyte distribution wid th standard deviationOrdered By: Jacinto Arroyo on 08-04-2023 Erythrocyte distribution width (RBC) [Entitic vol] 43.6 fL 35.1-43.9 [facility] HIV 1 and HIV-2 antibody ass ay with HIV-1 p24 antigen detectionOrdered By: Jacinto Arroyo on 08-04-2023 HIV 1+2 Ab+HIV1 p24 Ag IA Ql Non-Reactive Nonreactive [facility] Hematocrit Auto (Bld) [Volum e fraction]Ordered By: Jacinto Arroyo on 08-04-2023 Hematocrit (Bld) [Volume fraction] 40.3 % 40-54 [facility] Immature granulocytes/100 WB C Auto (Bld)Ordered By: Jacinto Arroyo on 08-04-2023 Immature granulocytes/100 WBC (Bld) 0.000 % 0.0-0.9 [facility] Comment on above: IG% - Immature Granu locytes (promyelocytes, myelocytes and metamyelocytes) > 1% indicates that a LEFT SHIFT is Present. Iron measurement (mass/mass) Ordered By: Jacinto Arroyo on 08-04-2023 Iron (Unsp spec) [Mass/Mass] 74 ug/dL 65-175 [facility] Laboratory - Chemistry and C hemistry - challengeOrdered By: Jacinto Arroyo on 08-04-2023 Ferritin [Mass/Vol] 11 ng/mL 26-[address] [facility] Laboratory - Hematology and Cell countsOrdered By: Jacinto Arroyo on 08-04-2023 MCH (RBC) [Entitic mass] 31.8 pg 27.0-32.0 [facility] MCHC (RBC) [Mass/Vol] 34.0 g/dL 32-36 [facility] Nucleated RBC/100 WBC (Bld) [Ratio] 0 % 0-5 [facility] Platelet mean volume (Bld) [Entitic vol] 9.6 fL 6.2-12.0 [facility] Platelets (Bld) [#/Vol] 241 10*3/uL 150-450 [facility] Neisseria gonorrhoeae genita l PCROrdered By: Jacinto Arroyo on 08-04-2023 N. gonorrhoeae DNA BRISSA+probe Ql (Genital specimen) [facility] No Panel InformationOrdered By: Jacinto Arroyo on 08-04-2023 Chlamydia trachomatis (PCR) [facility] RBC Auto (Bld) [#/Vol]Ordere d By: Jacinto Arroyo on 08-04-2023 RBC (Bld) [#/Vol] 4.31 10*6/uL 4.6-6.[address] [facility] Serum Treponema species anti body detectionOrdered By: Jacinto Arroyo on 08-04-2023 Treponema sp Ab Ql (S) Non-Reactive [facility] Whole blood hemoglobin A1c/t otal hemoglobin ratio (mass fraction)Ordered By: Jacinto Arroyo on 08-04-2023 HbA1c (Bld) [Mass fraction] 6.6 % 3.8-5.6 [facility] Comment on above: Normal < 5.7 % Predi abetic 5.7 - 6.4 % Diabetic >or= 6.5 % Please note range changes. Absolute lymphocyte countOrd ered By: Jacinto Arroyo on 03-23-2023 Lymphocytes Auto (Unsp spec) [#/Vol] 2.30 10*3/uL 0.83-4.51 [facility] Basophil percentageOrdered B y: Jacinto Arroyo on 03-23-2023 Basophils/100 WBC (Bld) 0.7 % 0-[address] [facility] Bilirubin [Mass/Vol] 0.20 mg/dL 0.20-1.00 [facility] Comment on above: For patients on eltr ombopag therapy, use of Dimension Monitor TBIL is not recommended. Chloride [Moles/Vol] 107 mmol/L 98-107 [facility] Cholesterol [Mass/Vol] 122 mg/dL <200 [facility] Comment on above: <200 mg/dL Desirable 200-240 mg/dL Borderline >240 mg/dL High Risk Eosinophils/100 WBC (Bld) 5.5 % 0-5 [facility] Glucose [Mass/Vol] 215 mg/dL 74-106 [facility] Comment on above: Glucose result great er than or equal to 200 mg/dLsuggests DIABETES MELLITUS per A.D.A. criteria. Neutrophils (Bld) [#/Vol] 1.3 10*3/uL 2.0-7.7 [facility] Neutrophils/100 WBC (Bld) 30.8 % 47-70 [facility] Potassium [Moles/Vol] 4.2 mmol/L 3.5-5.1 [facility] Protein [Mass/Vol] 7.0 g/dL 6.4-8.2 [facility] Sodium [Moles/Vol] 140 mmol/L 136-145 [facility] Triglyceride [Mass/Vol] 105 mg/dL <199 [facility] Comment on above: The drugs N-Acetylcy steine and Metamizole may falsely depress this assay.Serum Triglycerides Reference Interval Normal <150 mg/dL Borderline high 150 - 199 mg/dL High 200 - 499 mg/dL Very High > or = 500 mg/dL WBC (Bld) [#/Vol] 4.4 10*3/uL 4.4-11.0 [facility] Blood erythrocytes count (nu mber/volume)Ordered By: Jacinto Arroyo on 03-23-2023 RBC (Bld) [#/Vol] 4.15 10*6/uL 4.6-6.[address] [facility] Blood hemoglobin measurement (mass/volume)Ordered By: Jacinto Arroyo on 03-23-2023 Hemoglobin (Bld) [Mass/Vol] 13.3 g/dL 13.0-16.5 [facility] Blood lymphocytes/100 leukoc ytesOrdered By: Jacinto Arroyo on 03-23-2023 Lymphocytes/100 WBC (Bld) 52.9 % 19-41 [facility] Blood monocytes/100 leukocyt esOrdered By: Jacinto Arroyo on 03-23-2023 Monocytes/100 WBC (Bld) 9.9 % 0-10 [facility] Blood platelet mean volumeOr dered By: Jacinto Arroyo on 03-23-2023 Platelet mean volume (Bld) [Entitic vol] 10.0 fL 6.2-12.0 [facility] Determination of erythrocyte mean corpuscular volume (MCV)Ordered By: Jacinto Arroyo on 03-23-2023 MCV (RBC) [Entitic vol] 97.8 fL 80-[address] [facility] Hematocrit Auto (Bld) [Volum e fraction]Ordered By: Jacinto Arroyo on 03-23-2023 Hematocrit (Bld) [Volume fraction] 40.6 % 40-54 [facility] Iron measurement (mass/mass) Ordered By: Jacinto Arroyo on 03-23-2023 Iron (Unsp spec) [Mass/Mass] 36 ug/dL 65-175 [facility] Laboratory - Chemistry and C hemistry - challengeOrdered By: Jacinto Arroyo on 03-23-2023 ALP [Catalytic activity/Vol] 61 U/L 45-117 [facility] ALT [Catalytic activity/Vol] 23 U/L 16-61 [facility] CO2 [Moles/Vol] 27.0 mmol/L 21.0-32.0 [facility] Globulin (S) [Mass/Vol] 3.3 g/dL 2.2-4.[address] [facility] Urea nitrogen/Creatinine [Mass ratio] 9.6 mg/mg 10-20 [facility] Laboratory - Hematology and Cell countsOrdered By: Jacinto Arroyo on 03-23-2023 Erythrocyte distribution width (RBC) [Entitic vol] 44.6 fL 35.1-43.9 [facility] Erythrocyte distribution width (RBC) [Ratio] 12.3 % 11.6-14.6 [facility] Immature granulocytes/100 WBC (Bld) 0.200 % 0.0-0.9 [facility] Comment on above: IG% - Immature Granu locytes (promyelocytes, myelocytes and metamyelocytes) > 1% indicates that a LEFT SHIFT is Present. MCH (RBC) [Entitic mass] 32.0 pg 27.0-32.0 [facility] Nucleated RBC/100 WBC (Bld) [Ratio] 0 % 0-5 [facility] MCHC Auto (RBC) [Mass/Vol]Or dered By: Jacinto Arroyo on 03-23-2023 MCHC (RBC) [Mass/Vol] 32.8 g/dL 32-36 [facility] No Panel InformationOrdered By: Jacinto Arroyo on 03-23-2023 Estimated GFR (MDRD) Amer 77 mL/min >60 [facility] Comment on above: GFR Calc Estimated GFR (MDRD) Non-Af Amer 64 mL/min >60 [facility] Comment on above: Non- GFR Calc Prostate Specific Antigen Screen 1.78 ng/mL 0.00-4.00 [facility] Comment on above: This test was perfor med using the TPSA assay method for [employer] chemistry system. Values obtained with differentassay methods cannot be used interchangably.When changing PSA assays in the course of monitoring apatient, additional sequential testing should be carriedout to confirm baseline values. Urine Microalbumin/Creatinine Ratio TNP [facility] Comment on above: Test not performed Platelets bldOrdered By: Yaritza Arroyo on 03-23-2023 Platelets (Bld) [#/Vol] 238 10*3/uL 150-450 [facility] Serum or plasma albumin juan urement (mass/volume)Ordered By: Jacinto Arroyo on 03-23-2023 Albumin [Mass/Vol] 3.7 g/dL 3.2-5.0 [facility] Serum or plasma albumin/glob ulin mass ratioOrdered By: Jacinto Arroyo on 03-23-2023 Albumin/Globulin [Mass ratio] 1.1 {ratio} 0.9-2.4 [facility] Serum or plasma calcium juan urement (mass/volume)Ordered By: Jacinto Arroyo on 03-23-2023 Calcium [Mass/Vol] 8.6 mg/dL 8.5-10.1 [facility] Serum or plasma cholesterol in HDL measurement (mass/volume)Ordered By: Jacinto Arroyo on 03-23-2023 Cholesterol in HDL [Mass/Vol] 48 mg/dL >40 [facility] Comment on above: The drugs N-Acetylcy steine and Metamizole may falsely depress this assay. Reference Range HDL <40 mg/dL Low HDL Cholesterol HDL >or= 60 mg/dL High HDL Cholesterol Serum or plasma cholesterol in VLDL measurement (mass/volume)Ordered By: Jacinto Arroyo on 03-23-2023 Cholesterol in VLDL [Mass/Vol] 21 mg/dL 5-40 [facility] Serum or plasma creatinine m easurement (mass/volume)Ordered By: Jacinto Arroyo on 03-23-2023 Creatinine [Mass/Vol] 1.25 mg/dL 0.70-1.30 [facility] Comment on above: The validity of the calculated GFR & GFRAA in patients over 70 years has not been determined. Clinical correlation is essential. Serum or plasma ferritin cristiane surement (mass/volume)Ordered By: Jacinto Arroyo on 03-23-2023 Ferritin [Mass/Vol] 8 ng/mL 26-[address] [facility] Serum or plasma low density lipoprotein (LDL) cholesterol measurement (mass/volume)Ordered By: Jacinto Arroyo on 03-23-2023 Cholesterol in LDL [Mass/Vol] 53 mg/dL 0-130 [facility] Serum or plasma urea nitroge n measurement (mass/volume)Ordered By: Jacinto Arroyo on 03-23-2023 Urea nitrogen [Mass/Vol] 12 mg/dL 7-18 [facility] Thin prep Papanicolaou smear with manual screeningOrdered By: Jcainto Arroyo on 03-23-2023 Thin prep Papanicolaou smear with manual screening 8 U/L 15-37 [facility] Thin prep Papanicolaou smear with manual screening 6 5-15 [facility] Thin prep Papanicolaou smear with manual screening < 5.0 mg/L NO RANGE EST. [facility] Urine creatinine measurement (mass/volume)Ordered By: Jacinto Arroyo on 03-23-2023 Creatinine (U) [Mass/Vol] 83.10 mg/dL NO RANGE EST. [facility] Whole blood hemoglobin A1c/t otal hemoglobin ratio (mass fraction)Ordered By: Jacinto Arroyo on 03-23-2023 HbA1c (Bld) [Mass fraction] 6.6 % 3.8-5.6 [facility] Comment on above: Normal < 5.7 % Predi abetic 5.7 - 6.4 % Diabetic >or= 6.5 % Please note range changes. Absolute lymphocyte countOrd ered By: Dr. Arroyo on 09-14-2022 Lymphocytes Auto (Unsp spec) [#/Vol] 2.34 10*3/uL 0.83-4.51 [facility] Basophil percentageOrdered B y: Dr. Arroyo on 09-14-2022 Basophils/100 WBC (Bld) 0.5 % 0-1 [facility] Bilirubin [Mass/Vol] 0.50 mg/dL 0.20-1.00 [facility] Comment on above: For patients on eltr ombopag therapy, use of Dimension Monitor TBIL is not recommended. Chloride [Moles/Vol] 102 mmol/L 98-107 [facility] Cholesterol [Mass/Vol] 144 mg/dL <200 [facility] Comment on above: <200 mg/dL Desirable 200-240 mg/dL Borderline >240 mg/dL High Risk Eosinophils/100 WBC (Bld) 5.9 % 0-5 [facility] Glucose [Mass/Vol] 149 mg/dL 74-106 [facility] Comment on above: Fasting Glucose resu lt greater than or equal to 126 mg/dL suggests DIABETES MELLITUS per A.D.A. criteria. Neutrophils (Bld) [#/Vol] 1.1 10*3/uL 2.0-7.7 [facility] Neutrophils/100 WBC (Bld) 26.7 % 47-70 [facility] Potassium [Moles/Vol] 4.2 mmol/L 3.5-5.1 [facility] Protein [Mass/Vol] 7.4 g/dL 6.4-8.2 [facility] Sodium [Moles/Vol] 135 mmol/L 136-145 [facility] Triglyceride [Mass/Vol] 149 mg/dL <199 [facility] Comment on above: The drugs N-Acetylcy steine and Metamizole may falsely depress this assay.Serum Triglycerides Reference Interval Normal <150 mg/dL Borderline high 150 - 199 mg/dL High 200 - 499 mg/dL Very High > or = 500 mg/dL WBC (Bld) [#/Vol] 4.1 10*3/uL 4.4-11.0 [facility] Blood erythrocytes count (nu mber/volume)Ordered By: Dr. Arroyo on 09-14-2022 RBC (Bld) [#/Vol] 4.35 10*6/uL 4.6-6.[address] [facility] Blood hemoglobin measurement (mass/volume)Ordered By: Dr. Arroyo on 09-14-2022 Hemoglobin (Bld) [Mass/Vol] 13.8 g/dL 13.0-16.5 [facility] Blood lymphocytes/100 leukoc ytesOrdered By: Dr. Arroyo on 09-14-2022 Lymphocytes/100 WBC (Bld) 57.1 % 19-41 [facility] Blood monocytes/100 leukocyt esOrdered By: Dr. Arroyo on 09-14-2022 Monocytes/100 WBC (Bld) 9.8 % 0-[address] [facility] Blood platelet mean volumeOr dered By: Dr. Arroyo on 09-14-2022 Platelet mean volume (Bld) [Entitic vol] 9.2 fL 6.2-12.0 [facility] Determination of erythrocyte mean corpuscular volume (MCV)Ordered By: Dr. Arroyo on 09-14-2022 MCV (RBC) [Entitic vol] 94.5 fL 80-[address] [facility] Hematocrit Auto (Bld) [Volum e fraction]Ordered By: Dr. Arroyo on 09-14-2022 Hematocrit (Bld) [Volume fraction] 41.1 % 40-54 [facility] Iron measurement (mass/mass) Ordered By: Dr. Arroyo on 09-14-2022 Iron (Unsp spec) [Mass/Mass] 55 ug/dL 65-175 [facility] Laboratory - Chemistry and C hemistry - challengeOrdered By: Dr. Arroyo on 09-14-2022 ALP [Catalytic activity/Vol] 62 U/L 45-117 [facility] ALT [Catalytic activity/Vol] 24 U/L 16-61 [facility] CO2 [Moles/Vol] 26.0 mmol/L 21.0-32.0 [facility] Globulin (S) [Mass/Vol] 3.3 g/dL 2.2-4.[address] [facility] Urea nitrogen/Creatinine [Mass ratio] 19.3 mg/mg 10-20 [facility] Laboratory - Hematology and Cell countsOrdered By: Dr. Arroyo on 09-14-2022 Erythrocyte distribution width (RBC) [Entitic vol] 43.2 fL 35.1-43.9 [facility] Erythrocyte distribution width (RBC) [Ratio] 12.4 % 11.6-14.6 [facility] Immature granulocytes/100 WBC (Bld) 0.000 % 0.0-0.9 [facility] Comment on above: IG% - Immature Granu locytes (promyelocytes, myelocytes and metamyelocytes) > 1% indicates that a LEFT SHIFT is Present. MCH (RBC) [Entitic mass] 31.7 pg 27.0-32.0 [facility] Nucleated RBC/100 WBC (Bld) [Ratio] 0 % 0-5 [facility] MCHC Auto (RBC) [Mass/Vol]Or dered By: Dr. Arroyo on 09-14-2022 MCHC (RBC) [Mass/Vol] 33.6 g/dL 32-36 [facility] No Panel InformationOrdered By: Dr. Arroyo on 09-14-2022 Estimated GFR (MDRD) Amer 86 mL/min >60 [facility] Comment on above: GFR Calc Estimated GFR (MDRD) Non-Af Amer 71 mL/min >60 [facility] Comment on above: Non- GFR Calc Platelets bldOrdered By: Dr. Arroyo on 09-14-2022 Platelets (Bld) [#/Vol] 233 10*3/uL 150-450 [facility] Serum or plasma albumin juan urement (mass/volume)Ordered By: Dr. Arroyo on 09-14-2022 Albumin [Mass/Vol] 4.1 g/dL 3.2-5.0 [facility] Serum or plasma albumin/glob ulin mass ratioOrdered By: Dr. Arroyo on 09-14-2022 Albumin/Globulin [Mass ratio] 1.2 {ratio} 0.9-2.4 [facility] Serum or plasma calcium juan urement (mass/volume)Ordered By: Dr. Arroyo on 09-14-2022 Calcium [Mass/Vol] 9.1 mg/dL 8.5-10.1 [facility] Serum or plasma cholesterol in HDL measurement (mass/volume)Ordered By: Dr. Arroyo on 09-14-2022 Cholesterol in HDL [Mass/Vol] 38 mg/dL >40 [facility] Comment on above: The drugs N-Acetylcy steine and Metamizole may falsely depress this assay. Reference Range HDL <40 mg/dL Low HDL Cholesterol HDL >or= 60 mg/dL High HDL Cholesterol Serum or plasma cholesterol in VLDL measurement (mass/volume)Ordered By: Dr. Arroyo on 09-14-2022 Cholesterol in VLDL [Mass/Vol] 30 mg/dL 5-40 [facility] Serum or plasma creatinine m easurement (mass/volume)Ordered By: Dr. Arroyo on 09-14-2022 Creatinine [Mass/Vol] 1.14 mg/dL 0.70-1.30 [facility] Comment on above: The validity of the calculated GFR & GFRAA in patients over 70 years has not been determined. Clinical correlation is essential. Serum or plasma ferritin cristiane surement (mass/volume)Ordered By: Dr. Arroyo on 09-14-2022 Ferritin [Mass/Vol] 10 ng/mL 26-[address] [facility] Serum or plasma low density lipoprotein (LDL) cholesterol measurement (mass/volume)Ordered By: Dr. Arroyo on 09-14-2022 Cholesterol in LDL [Mass/Vol] 76 mg/dL 0-130 [facility] Serum or plasma urea nitroge n measurement (mass/volume)Ordered By: Dr. Arroyo on 09-14-2022 Urea nitrogen [Mass/Vol] 22 mg/dL 7-18 [facility] Thin prep Papanicolaou smear with manual screeningOrdered By: Dr. Arroyo on 09-14-2022 Thin prep Papanicolaou smear with manual screening 13 U/L 15-37 [facility] Thin prep Papanicolaou smear with manual screening 7 5-15 [facility] Whole blood hemoglobin A1c/t otal hemoglobin ratio (mass fraction)Ordered By: Dr. Arroyo on 09-14-2022 HbA1c (Bld) [Mass fraction] 6.7 % 3.8-5.6 [facility] Comment on above: Normal < 5.7 % Predi abetic 5.7 - 6.4 % Diabetic >or= 6.5 % Please note range changes. Absolute lymphocyte countOrd ered By: Dr. Arroyo on 06-10-2022 Lymphocytes Auto (Unsp spec) [#/Vol] 2.61 10*3/uL 0.83-4.51 [facility] Basophil percentageOrdered B y: Dr. Arroyo on 06-10-2022 Basophils/100 WBC (Bld) 0.9 % 0-1 [facility] Bilirubin [Mass/Vol] 0.80 mg/dL 0.20-1.00 [facility] Comment on above: For patients on eltr ombopag therapy, use of Dimension Monitor TBIL is not recommended. Chloride [Moles/Vol] 104 mmol/L 98-107 [facility] Cholesterol [Mass/Vol] 138 mg/dL <200 [facility] Comment on above: <200 mg/dL Desirable 200-240 mg/dL Borderline >240 mg/dL High Risk Eosinophils/100 WBC (Bld) 6.9 % 0-5 [facility] Glucose [Mass/Vol] 128 mg/dL 74-106 [facility] Comment on above: Fasting Glucose resu lt greater than or equal to 126 mg/dL suggests DIABETES MELLITUS per A.D.A. criteria. Neutrophils (Bld) [#/Vol] 1.2 10*3/uL 2.0-7.7 [facility] Neutrophils/100 WBC (Bld) 24.8 % 47-70 [facility] Potassium [Moles/Vol] 4.4 mmol/L 3.5-5.1 [facility] Protein [Mass/Vol] 7.7 g/dL 6.4-8.2 [facility] Sodium [Moles/Vol] 136 mmol/L 136-145 [facility] Triglyceride [Mass/Vol] 101 mg/dL <199 [facility] Comment on above: The drugs N-Acetylcy steine and Metamizole may falsely depress this assay.Serum Triglycerides Reference Interval Normal <150 mg/dL Borderline high 150 - 199 mg/dL High 200 - 499 mg/dL Very High > or = 500 mg/dL WBC (Bld) [#/Vol] 4.7 10*3/uL 4.4-11.0 [facility] Blood erythrocytes count (nu mber/volume)Ordered By: Dr. Arrooy on 06-10-2022 RBC (Bld) [#/Vol] 4.45 10*6/uL 4.6-6.[address] [facility] Blood hemoglobin measurement (mass/volume)Ordered By: Dr. Arroyo on 06-10-2022 Hemoglobin (Bld) [Mass/Vol] 14.7 g/dL 13.0-16.5 [facility] Blood lymphocytes/100 leukoc ytesOrdered By: Dr. Arroyo on 06-10-2022 Lymphocytes/100 WBC (Bld) 55.9 % 19-41 [facility] Blood monocytes/100 leukocyt esOrdered By: Dr. Arroyo on 06-10-2022 Monocytes/100 WBC (Bld) 11.3 % 0-[address] [facility] Blood platelet mean volumeOr dered By: Dr. Arroyo on 06-10-2022 Platelet mean volume (Bld) [Entitic vol] 9.7 fL 6.2-12.0 [facility] Determination of erythrocyte mean corpuscular volume (MCV)Ordered By: Dr. Arroyo on 06-10-2022 MCV (RBC) [Entitic vol] 94.6 fL 80-[address] [facility] Hematocrit Auto (Bld) [Volum e fraction]Ordered By: Dr. Arroyo on 06-10-2022 Hematocrit (Bld) [Volume fraction] 42.1 % 40-54 [facility] Iron measurement (mass/mass) Ordered By: Dr. Arroyo on 06-10-2022 Iron (Unsp spec) [Mass/Mass] 176 ug/dL 65-175 [facility] Laboratory - Chemistry and C hemistry - challengeOrdered By: Dr. Arroyo on 06-10-2022 ALP [Catalytic activity/Vol] 68 U/L 45-117 [facility] ALT [Catalytic activity/Vol] 20 U/L 16-61 [facility] CO2 [Moles/Vol] 26.0 mmol/L 21.0-32.0 [facility] Globulin (S) [Mass/Vol] 3.3 g/dL 2.2-4.[address] [facility] Urea nitrogen/Creatinine [Mass ratio] 19.3 mg/mg 10-20 [facility] - Hematology and Cell countsOrdered By: Dr. Arroyo on 06-10-2022 Erythrocyte distribution width (RBC) [Entitic vol] 43.4 fL 35.1-43.9 [facility] Erythrocyte distribution width (RBC) [Ratio] 12.7 % 11.6-14.6 [facility] Immature granulocytes/100 WBC (Bld) 0.200 % 0.0-0.9 [facility] Comment on above: IG% - Immature Granu locytes (promyelocytes, myelocytes and metamyelocytes) > 1% indicates that a LEFT SHIFT is Present. MCH (RBC) [Entitic mass] 33.0 pg 27.0-32.0 [facility] Nucleated RBC/100 WBC (Bld) [Ratio] 0 % 0-5 [facility] MCHC Auto (RBC) [Mass/Vol]Or dered By: Dr. Arroyo on 06-10-2022 MCHC (RBC) [Mass/Vol] 34.9 g/dL 32-36 [facility] No Panel InformationOrdered By: Dr. Arroyo on 06-10-2022 Estimated GFR (MDRD) Amer 82 mL/min >60 [facility] Comment on above: GFR Calc Estimated GFR (MDRD) Non-Af Amer 68 mL/min >60 [facility] Comment on above: Non- GFR Calc Urine Microalbumin/Creatinine Ratio 6.3 mg/g CRE <30 [facility] Platelets bldOrdered By: Dr. Arroyo on 06-10-2022 Platelets (Bld) [#/Vol] 237 10*3/uL 150-450 [facility] Serum or plasma albumin juan urement (mass/volume)Ordered By: Dr. Arroyo on 06-10-2022 Albumin [Mass/Vol] 4.4 g/dL 3.2-5.0 [facility] Serum or plasma albumin/glob ulin mass ratioOrdered By: Dr. Arroyo on 06-10-2022 Albumin/Globulin [Mass ratio] 1.3 {ratio} 0.9-2.4 [facility] Serum or plasma calcium juan urement (mass/volume)Ordered By: Dr. Arroyo on 06-10-2022 Calcium [Mass/Vol] 9.3 mg/dL 8.5-10.1 [facility] Serum or plasma cholesterol in HDL measurement (mass/volume)Ordered By: Dr. Aroryo on 06-10-2022 Cholesterol in HDL [Mass/Vol] 38 mg/dL >40 [facility] Comment on above: The drugs N-Acetylcy steine and Metamizole may falsely depress this assay. Reference Range HDL <40 mg/dL Low HDL Cholesterol HDL >or= 60 mg/dL High HDL Cholesterol Serum or plasma cholesterol in VLDL measurement (mass/volume)Ordered By: Dr. Arroyo on 06-10-2022 Cholesterol in VLDL [Mass/Vol] 20 mg/dL 5-40 [facility] Serum or plasma creatinine m easurement (mass/volume)Ordered By: Dr. Arroyo on 06-10-2022 Creatinine [Mass/Vol] 1.19 mg/dL 0.70-1.30 [facility] Comment on above: The validity of the calculated GFR & GFRAA in patients over 70 years has not been determined. Clinical correlation is essential. Serum or plasma ferritin cristiane surement (mass/volume)Ordered By: Dr. Arroyo on 06-10-2022 Ferritin [Mass/Vol] 17 ng/mL 26-[address] [facility] Serum or plasma low density lipoprotein (LDL) cholesterol measurement (mass/volume)Ordered By: Dr. Arroyo on 06-10-2022 Cholesterol in LDL [Mass/Vol] 80 mg/dL 0-130 [facility] Serum or plasma urea nitroge n measurement (mass/volume)Ordered By: Dr. Arroyo on 06-10-2022 Urea nitrogen [Mass/Vol] 23 mg/dL 7-18 [facility] Thin prep Papanicolaou smear with manual screeningOrdered By: Dr. Arroyo on 06-10-2022 Thin prep Papanicolaou smear with manual screening 10 U/L 15-37 [facility] Thin prep Papanicolaou smear with manual screening 6 5-15 [facility] Thin prep Papanicolaou smear with manual screening 7.9 mg/L NO RANGE EST. [facility] Urine creatinine measurement (mass/volume)Ordered By: Dr. Arroyo on 06-10-2022 Creatinine (U) [Mass/Vol] 125.00 mg/dL NO RANGE EST. [facility] Whole blood hemoglobin A1c/t otal hemoglobin ratio (mass fraction)Ordered By: Dr. Arroyo on 06-10-2022 HbA1c (Bld) [Mass fraction] 6.6 % 3.8-5.6 [facility] Comment on above: Normal < 5.7 % Predi abetic 5.7 - 6.4 % Diabetic >or= 6.5 % Please note range changes. Absolute lymphocyte counton 12-09-2021 Lymphocytes Auto (Unsp spec) [#/Vol] 2.21 10*3/uL 0.83-4.51 [facility] Work Phone: Basophil percentageon 2021 Basophils/100 WBC (Bld) 0.6 % 0-[address] [facility] Work Phone: Bilirubin [Mass/Vol] 0.50 mg/dL 0.20-1.00 [facility] Work Phone: Comment on above: For patients on eltr ombopag therapy, use of Dimension Monitor TBIL is not recommended. Chloride [Moles/Vol] 103 mmol/L 98-107 [facility] Work Phone: Cholesterol [Mass/Vol] 132 mg/dL <200 [facility] Work Phone: Comment on above: <200 mg/dL Desirable 200-240 mg/dL Borderline >240 mg/dL High Risk Eosinophils/100 WBC (Bld) 3.7 % 0-5 [facility] Work Phone: Glucose [Mass/Vol] 179 mg/dL 74-106 [facility] Work Phone: Comment on above: Fasting Glucose resu lt greater than or equal to 126 mg/dL suggests DIABETES MELLITUS per A.D.A. criteria. Neutrophils (Bld) [#/Vol] 2.4 10*3/uL 2.0-7.7 [facility] Work Phone: Neutrophils/100 WBC (Bld) 45.3 % 47-70 [facility] Work Phone: Potassium [Moles/Vol] 4.2 mmol/L 3.5-5.1 [facility] Work Phone: [phone] Protein [Mass/Vol] 7.3 g/dL 6.4-8.2 [facility] Work Phone: Sodium [Moles/Vol] 137 mmol/L 136-145 [facility] Work Phone: [phone] Triglyceride [Mass/Vol] 92 mg/dL <[address] [facility] Work Phone: Comment on above: The drugs N-Acetylcy steine and Metamizole may falsely depress this assay.Serum Triglycerides Reference Interval Normal <150 mg/dL Borderline high 150 - 199 mg/dL High 200 - 499 mg/dL Very High > or = 500 mg/dL WBC (Bld) [#/Vol] 5.4 10*3/uL 4.4-11.0 [facility] Work Phone: [phone] Blood erythrocytes count (nu mber/volume)on 12-09-2021 RBC (Bld) [#/Vol] 4.31 10*6/uL 4.6-6.[address] [facility] Work Phone: [phone] Blood hemoglobin measurement (mass/volume)on 12-09-2021 Hemoglobin (Bld) [Mass/Vol] 14.2 g/dL 13.0-16.5 [facility] Work Phone: Blood lymphocytes/100 leukoc yteson 12-09-2021 Lymphocytes/100 WBC (Bld) 41.2 % 19-41 [facility] Work Phone: [phone] Blood monocytes/100 leukocyt eson 12-09-2021 Monocytes/100 WBC (Bld) 9.0 % 0-[address] [facility] Work Phone: [phone] Blood platelet mean volumeon 12-09-2021 Platelet mean volume (Bld) [Entitic vol] 10.0 fL 6.2-12.0 [facility] Work Phone: [phone] Determination of erythrocyte mean corpuscular volume (MCV)on 12-09-2021 MCV (RBC) [Entitic vol] 95.1 fL 80-[address] [facility] Work Phone: [phone] Hematocrit Auto (Bld) [Volum e fraction]on 12-09-2021 Hematocrit (Bld) [Volume fraction] 41.0 % 40-54 [facility] Work Phone: [phone] Laboratory - Chemistry and C hemistry - challengeon 12-09-2021 ALP [Catalytic activity/Vol] 69 U/L 45-117 [facility] Work Phone: [phone] ALT [Catalytic activity/Vol] 18 U/L 16-61 [facility] Work Phone: [phone] CO2 [Moles/Vol] 27.0 mmol/L 21.0-32.0 [facility] Work Phone: [phone] Globulin (S) [Mass/Vol] 3.3 g/dL 2.2-4.[address] [facility] Work Phone: [phone] Urea nitrogen/Creatinine [Mass ratio] 9.2 mg/mg 10-20 [facility] Work Phone: [phone] Laboratory - Hematology and Cell countson 12-09-2021 Erythrocyte distribution width (RBC) [Entitic vol] 42.5 fL 35.1-43.9 [facility] Work Phone: [phone] Erythrocyte distribution width (RBC) [Ratio] 12.3 % 11.6-14.6 [facility] Work Phone: [phone] Immature granulocytes/100 WBC (Bld) 0.200 % 0.0-0.9 [facility] Work Phone: [phone] Comment on above: IG% - Immature Granu locytes (promyelocytes, myelocytes and metamyelocytes) > 1% indicates that a LEFT SHIFT is Present. MCH (RBC) [Entitic mass] 32.9 pg 27.0-32.0 [facility] Work Phone: [phone] Nucleated RBC/100 WBC (Bld) [Ratio] 0 % 0-5 [facility] Work Phone: [phone] MCHC Auto (RBC) [Mass/Vol]on 12-09-2021 MCHC (RBC) [Mass/Vol] 34.6 g/dL 32-36 [facility] Work Phone: [phone] No Panel Informationon 12-09 Estimated GFR (MDRD) Amer 81 mL/min >60 [facility] Work Phone: Comment on above: GFR Calc Estimated GFR (MDRD) Non-Af Amer 67 mL/min >60 [facility] Work Phone: Comment on above: Non- GFR Calc Thyroid Stimulating Hormone (TSH) 1.01 uIU/mL 0.358-3.74 [facility] Work Phone: Urine Microalbumin/Creatinine Ratio 28.6 mg/g CRE <30 [facility] Work Phone: [phone] Platelets bldon 12-09-2021 Platelets (Bld) [#/Vol] 241 10*3/uL 150-450 [facility] Work Phone: Serum or plasma albumin juan urement (mass/volume)on 12-09-2021 Albumin [Mass/Vol] 4.0 g/dL 3.2-5.0 [facility] Work Phone: Serum or plasma albumin/glob ulin mass ratioon 12-09-2021 Albumin/Globulin [Mass ratio] 1.2 {ratio} 0.9-2.4 [facility] Work Phone: Serum or plasma calcium juan urement (mass/volume)on 12-09-2021 Calcium [Mass/Vol] 9.3 mg/dL 8.5-10.1 [facility] Work Phone: Serum or plasma cholesterol in HDL measurement (mass/volume)on 12-09-2021 Cholesterol in HDL [Mass/Vol] 39 mg/dL >40 [facility] Work Phone: Comment on above: The drugs N-Acetylcy steine and Metamizole may falsely depress this assay. Reference Range HDL <40 mg/dL Low HDL Cholesterol HDL >or= 60 mg/dL High HDL Cholesterol Serum or plasma cholesterol in VLDL measurement (mass/volume)on 12-09-2021 Cholesterol in VLDL [Mass/Vol] 18 mg/dL 5-40 [facility] Work Phone: [phone] Serum or plasma creatinine m easurement (mass/volume)on 12-09-2021 Creatinine [Mass/Vol] 1.20 mg/dL 0.70-1.30 [facility] Work Phone: Comment on above: The validity of the calculated GFR & GFRAA in patients over 70 years has not been determined. Clinical correlation is essential. Serum or plasma ferritin cristiane surement (mass/volume)on 12-09-2021 Ferritin [Mass/Vol] 13 ng/mL 26-[address] [facility] Work Phone: Serum or plasma low density lipoprotein (LDL) cholesterol measurement (mass/volume)on 12-09-2021 Cholesterol in LDL [Mass/Vol] 75 mg/dL 0-130 [facility] Work Phone: Serum or plasma urea nitroge n measurement (mass/volume)on 12-09-2021 Urea nitrogen [Mass/Vol] 11 mg/dL 7-18 [facility] Work Phone: Thin prep Papanicolaou smear with manual screeningon 12-09-2021 Thin prep Papanicolaou smear with manual screening 9 U/L 15-37 [facility] Work Phone: Thin prep Papanicolaou smear with manual screening 7 5-15 [facility] Work Phone: Thin prep Papanicolaou smear with manual screening 25.8 mg/L NO RANGE EST. [facility] Work Phone: Urine creatinine measurement (mass/volume)on 12-09-2021 Creatinine (U) [Mass/Vol] 90.20 mg/dL NO RANGE EST. [facility] Work Phone: Whole blood hemoglobin A1c/t otal hemoglobin ratio (mass fraction)on 12-09-2021 HbA1c (Bld) [Mass fraction] 8.2 % 3.8-5.6 [facility] Work Phone: Comment on above: Normal < 5.7 % Predi abetic 5.7 - 6.4 % Diabetic >or= 6.5 % Please note range changes. Clinical Lists Update: [facility] [employer] 01-04-2017 Left ventricular Ejection fraction 60 % Invalid Interpretation Code [facility] Work Phone: [phone] Office Visiton 11-23-2016 Documentation of current medications (procedure) Done Invalid Interpretation Code [facility] Work Phone: [phone] Fall risk assessment Fall risk assessment Invalid Interpretation Code [facility] Work Phone: [phone] Office Visiton 11-20-2015 Dietary management education, guidance, and counseling (procedure) yes Invalid Interpretation Code [facility] Work Phone: [phone] Tobacco use CPHS Never smoker Invalid Interpretation Code [facility] Work Phone: [phone] Clinical Lists Update: [facility]11-19-2015 Left ventricular Ejection fraction 60 % Invalid Interpretation Code [facility] Work Phone: [phone] Office Visiton 11-15-2014 cardiac risk group C Invalid Interpretation Code [facility] Work Phone: [phone] General cardiovascular disease 10Y risk [#] [place].D'[place]ost[place] 9 % Invalid Interpretation Code [facility] Work Phone: [phone] 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 Alanine aminotransferase (ALT) 32 U/L Invalid Interpretation Code [facility] Work Phone: [phone] Alkaline phosphatase (ALP) 52 U/L Invalid Interpretation Code [facility] Work Phone: [phone] Anion gap 8 mmol/L Invalid Interpretation Code [facility] Work Phone: [phone] Aspartate aminotransferase (AST) 10 U/L Invalid Interpretation Code [facility] Work Phone: [phone] BUN/Creatinine Ratio 10.0 mg/mg Invalid Interpretation Code [facility] Work Phone: [phone] Calcium 7.3 mg/dL Invalid Interpretation Code [facility] Work Phone: [phone] Chloride 106 mmol/L Invalid Interpretation Code [facility] Work Phone: [phone] Cholesterol 185 mg/dL Invalid Interpretation Code [facility] Work Phone: [phone] CO2 25.0 mmol/L Invalid Interpretation Code [facility] Work Phone: [phone] Creatinine 1.2 mg/dL Invalid Interpretation Code [facility] Work Phone: [phone] Erythrocytes (RBC) 4.44 10*6/uL [facility] Work Phone: [phone] Glucose 126 mg/dL High [facility] Work Phone: [phone] HDL Cholesterol 39 mg/dL Invalid Interpretation Code [facility] Work Phone: [phone] Hematocrit (HCT) 40.9 % Invalid Interpretation Code [facility] Work Phone: [phone] Hemoglobin (HGB) 14.5 g/dL Invalid Interpretation Code [facility] Work Phone: [phone] LDL Cholesterol 120 mg/dL Invalid Interpretation Code [facility] Work Phone: [phone] MCH 32.7 pg Invalid Interpretation Code [facility] Work Phone: [phone] MCHC 35.5 g/dL Invalid Interpretation Code [facility] Work Phone: [phone] MCV 92.1 fL Invalid Interpretation Code [facility] Work Phone: [phone] Platelets 239 10*3/mm3 Invalid Interpretation Code [facility] Work Phone: [phone] Potassium 4.3 mmol/L Invalid Interpretation Code [facility] Work Phone: [phone] Sodium 139 mmol/L Invalid Interpretation Code [facility] Work Phone: [phone] Thyroid stimulating hormone (TSH) 1.31 u[iU]/mL Invalid Interpretation Code [facility] Work Phone: [phone] Triglyceride 128 mg/dL Invalid Interpretation Code [facility] Work Phone: [phone] Urea nitrogen 12 mg/dL Invalid Interpretation Code [facility] Work Phone: [phone] very low density lipoproteins 26 mg/dL Invalid Interpretation Code [facility] Work Phone: [phone] WBC (Leukocytes) 4.5 10*3/uL Invalid Interpretation Code [facility] Work Phone: [phone] Lab Report: TRFon 06-02-2013 Transferrin 265 mg/dL Normal 200-370 [facility] Work Phone: [phone] Replaced Document: CMPon Albumin 4.6 g/dL Normal 3.4-5.0 [facility] Work Phone: [phone] Bilirubin (total) 0.90 mg/dL Normal 0.00-1.00 [facility] Work Phone: [phone] CO2 7 mmol/L Normal 5-15 [facility] Work Phone: [phone] Replaced Document: URICon Urate 6.5 mg/dL Normal 3.5-7.2 [facility] Work Phone: [phone] Lab Report: MGon 11-01-2012 Magnesium 1.7 mg/dL Low 1.8-2.4 [facility] Work Phone: [phone] Lab Report: T4on 11-01-2012 Thyroxine (T4) 9.2 ug/dL Normal 4.5-12.1 [facility] Work Phone: [phone] 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 Albumin/Globulin Ratio 1.2 {ratio} Invalid Interpretation Code [employer] Phone: [phone] basophils as percent of blood leukocytes, manual count 0.6 % Invalid Interpretation Code [employer] Phone: [phone] eosinophils as percent of blood leukocytes, manual count 4.1 % Invalid Interpretation Code [employer] Phone: [phone] Globulin 3.3 g/dL Invalid Interpretation Code [employer] Phone: [phone] Lymphocytes/100 leukocytes 46.1 % High [facility] Work Phone: [phone] Monocytes/100 leukocytes 9.1 % Invalid Interpretation Code [employer] Phone: [phone] neutrophils, band form as percent of blood leukocytes, manual count 40.1 % Low [facility] Work Phone: [phone] Protein 7.3 g/dL Invalid Interpretation Code [employer] Phone: [phone] Vital Signs Date Time Vital Sign Value Performing Clinician Faci lity 05-24-2024 13:31-0500 Body height 177.[address] Jacinto Arroyo DO Work Phone: [facility] 05-24-2024 13:31-0500 Body mass index (BMI) [Ratio] 26.9 kg/m2 Dr. Jacinto Arroyo DO Work Phone: [facility] 05-24-2024 13:31-0500 Body weight 85.[address] Jacinto Arroyo DO Work Phone: [facility] 05-24-2024 13:31-0500 Diastolic blood pressure 72 mm[Hg] Dr. Jacinto Arroyo DO Work Phone: [facility] 05-24-2024 13:31-0500 Heart rate 3 /min Dr. Jacinto Arroyo DO Work Phone: [facility] 05-24-2024 13:31-0500 Respiratory rate 16 /min Dr. Jacinto Arroyo DO Work Phone: [facility] 05-24-2024 13:31-0500 Systolic blood pressure 115 mm[Hg] Dr. Jacinto Arroyo DO Work Phone: [facility] 11-09-2023 08:24-0400 Body height 177.8 cm Wanda Regotti PA-C Work Phone: [facility] 11-09-2023 08:24-0400 Body mass index (BMI) [Ratio] 25.11 kg/m2 Wanda Regotti PA-C Work Phone: [facility] 11-09-2023 08:24-0400 Body weight 79.38 kg Wanda Regotti PA-C Work Phone: [facility] 03-28-2023 11:26-0400 Body height 177.[address] Jacinto Arroyo Work Phone: [facility] 03-28-2023 11:26-0400 Body mass index (BMI) [Ratio] 26.5 kg/m2 Dr. Jacinto Arroyo Work Phone: [facility] 03-28-2023 11:26-0400 Body weight 83.[address] Jacinto Arroyo Work Phone: [facility] 03-28-2023 11:26-0400 Diastolic blood pressure 65 mm[Hg] Dr. Jacinto Arroyo Work Phone: [facility] 03-28-2023 11:26-0400 Heart rate 62 /min Dr. Jacinto Arroyo Work Phone: [facility] 03-28-2023 11:26-0400 Respiratory rate 16 /min Dr. Jacinto Arroyo Work Phone: [facility] 03-28-2023 11:26-0400 Systolic blood pressure 113 mm[Hg] Dr. Jacinto Arroyo Work Phone: [facility] 11-23-2016 08:36-0400 BMI (Body Mass Index) 28.41 kg/m2 [facility] Work Phone: 11-23-2016 08:36-0400 BP Diastolic 60 mm[Hg] [facility] Work Phone: 11-23-2016 08:36-0400 BP Systolic 100 mm[Hg] [facility] Work Phone: 11-23-2016 08:36-0400 Height 177.8 cm [facility] Work Phone: 11-23-2016 08:36-0400 Pulse (Heart Rate) 72 /min [facility] Work Phone: 11-23-2016 08:36-0400 Respiratory Rate 20 /min [facility] Work Phone: 11-23-2016 08:36-0400 Weight 89.81 kg [facility] Work Phone: 11-20-2015 11:33-0400 BSA (Body Surface Area) 2.12 m2 [facility] Work Phone: Encounters Encounter Date Encounter Type Care Provider Facility Start: 01-30-2025 ambulatory Jacinto Arroyo Facility: [facility] Start: 11-01-2024 End: 11-01-[address] Jacinto Arroyo DO Work Phone: [facility] Work Phone: Start: 11-01-2024 End: 11-01-[address] Kg Coker MD -Laboratory [facility] Work Phone: Start: 11-01-2024 End: 11-01-2024 ambulatory Kg Coker Facility:[facility] Start: 10-30-2024 End: 10-30-[address] Jacinto Arroyo DO Work Phone: [facility] Work Phone: Start: 10-30-2024 End: 10-30-[address] Jacinto Arroyo DO -Laboratory [place] Work Phone: Start: 10-30-2024 End: 10-30-2024 ambulatory [facility] Facility:[facility] Start: 08-23-2024 End: 08-23-[address] Jacinto Arroyo DO Work Phone: [facility] Work Phone: Start: 08-23-2024 End: 08-23-[address] Jacinto Arroyo DO -Laboratory, [facility] Start: 08-23-2024 End: 08-23-2024 ambulatory [facility] Facility:[facility] Start: 05-24-2024 End: 05-24-[address] Jonnathan Celeste MD -[facility] Work Phone: Start: 05-24-2024 End: 05-24-2024 ambulatory [facility] Facility:[facility] Start: 04-30-2024 End: 04-30-2024 ambulatory [facility] Facility:[facility] Start: 03-06-2024 End: 03-06-2024 ambulatory [facility] Facility:[facility] Start: 11-10-2023 Telephone encounter Wanda Garcias PA-C Work Phone: Orthopaedics Start: 11-10-2023 End: 11-10-2023 ambulatory [facility] Facility:[facility] Start: 11-10-2023 End: 11-10-2023 Subsequent hospital visit by physician Ct [facility] Veron[facility] ([facility]) Work Phone: CT Scan Comment on above: Right wrist pain [M2 5.531] Start: 11-09-2023 End: 11-09-2023 Patient encounter procedure Wanda Garcias PA-C Work Phone: Orthopaedics Comment on above: Right wrist pain (Pr imary Dx); Closed nondisplaced fracture of proximal third of scaphoid bone of right wrist, initial encounter Start: 11-09-2023 End: 11-09-2023 ambulatory WANDA GARCIAS Facility:[facility] Start: 11-09-2023 End: 11-09-2023 Subsequent hospital visit by physician Xr [facility] Comment on above: Pain in right wrist [M25.531] Start: 11-08-2023 End: 11-08-2023 ambulatory Jacinto Arroyo Facility:[facility] Start: 11-03-2023 End: 11-04-2023 Emergency department patient visit SHEILA MOONEY Facility[facility] Start: 08-04-2023 End: 08-04-[address] Jacinto Arroyo Work Phone: [facility] Work Phone: Start: 08-04-2023 End: 08-04-[address] Jacinto Arroyo Work Phone: [facility]-Laboratory Work Phone: Start: 06-15-2023 End: 06-15-[address] Jacinto Arroyo Work Phone: [facility] Work Phone: Start: 06-15-2023 End: 06-15-[address] Jacinto Arroyo Work Phone: [facility]-Cat Scan, [facility] Work Phone: Start: 06-07-2023 Non-patient / Non-visit [facility] Miguelito [facility] Start: 06-07-2023 End: 06-07-[address] Jacinto Arroyo Work Phone: [facility] Work Phone: Start: 06-07-2023 End: 06-07-[address] [facility] Start: 03-28-2023 End: 03-28-[address] Jacinto Arroyo Work Phone: [facility] Work Phone: Start: 03-23-2023 End: 03-23-[address] Jacinto Arroyo Work Phone: [facility] Work Phone: Start: 03-23-2023 End: 03-23-[address] [facility] Start: 03-10-2023 End: 03-10-2023 ambulatory [facility] Start: 09-14-2022 End: 09-14-2022 ambulatory [facility] Work Phone: Start: 09-14-2022 End: 09-14-2022 Patient encounter procedure [facility]Labor[facility] Start: 06-10-2022 End: 06-10-2022 ambulatory [facility] Work Phone: Start: 06-10-2022 End: 06-10-2022 Patient encounter procedure [facility] Start: 12-09-2021 End: 12-09-2021 Patient encounter procedure [facility] Procedures Date Procedure Procedure Detail Performing Clinician Start: 11-01-2024 Gram stain microscopy D mac Arroyo DO Work Phone: Start: 11-01-[address] Jacinto Arroyo DO Work Phone: Start: 10-30-2024 End: 10-30-2024 Polymerase chain reaction analysis Dr. Jacinto Arroyo DO Work Phone: Start: 10-30-2024 Serologic test for syphilis Dr. Jacinto Arroyo DO Work Phone: Start: 08-23-2024 End: 08-23-2024 Polymerase chain reaction analysis Dr. Jacinto Arroyo DO Work Phone: Start: 08-23-2024 Serologic test for syphilis Dr. Jacinto Arroyo DO Work Phone: Start: 11-10-2023 Ct upper extremity w /o contrast material Wanda Garcias PA-C Work Phone: Start: 08-04-[address] Jacinto Arroyo Work Phone: Start: 08-04-2023 Chlamydia trachomatis (PCR) Dr. Jacinto Arroyo Work Phone: Start: 06-15-2023 CT of abdomen and pe lvis without contrast Dr. Jacinto Arroyo Work Phone: Start: 11-23-2016 End: 01-04-2017 Celena Celeste MD Start: 11-23-2016 End: 11-23-2016 Follow Up Appt 1 year Jonnathan Celeste MD Start: 11-23-2016 End: 11-23-2016 Cate Celeste MD Start: 11-20-2015 End: 11-23-2016 LACIE [...] Jonnathan Celeste MD Start: 11-01-2012 End: 11-01-2012 LACIE Celeste MD Start: 11-01-2012 End: 11-10-2012 Celena Celeste MD Start: 11-01-2012 End: 11-01-2012 Follow Up Appt 1 year Jonnathan Celeste MD Start: 11-01-2012 End: 11-17-2012 Magnesium Jonnathan Celeste MD Start: 11-01-2012 End: 11-17-2012 Thyroid stimulating hormone (TSH) Jonnathan Celeste MD Plan of Treatment Date Care Activity Detail Author Start: 11-10-2023 End: 11-10-2023 Patient encounter procedure 11/10/2023 8:[address] Scan [id number] [place], [place] [id number] Right wrist pain [M25.531] CT Scan Comment on above: Right wrist pain [M2 5.531] Start: 06-06-2023 Behavioral Health Screening Behavioral Health Screening [facility] Start: 02-04-2023 Covid-19 Vaccine ( season) Covid-19 Vaccine () [facility] Start: 08-26-2022 Prostate specific an tigen measurement Prostate Cancer Screening Discussion [facility] Start: 11-23-2017 End: 11-23-2017 Appointment Appointment [facility] Work Phone: Start: 11-23-2016 End: 11-23-2016 Echocardiography Echocardiogram (complete) [facility] Work Phone: Start: 11-23-2016 End: 11-23-2016 Follow Up Appt 1 year Follow Up Appt 1 year [facility] Work Phone: Start: 11-23-2016 End: 11-23-2016 MMM MMM [facility] Work Phone: Start: 07-03-2016 Diabetes Screening Diabetes Screenin g [facility] Start: 11-20-2015 End: 11-23-2016 SENIOR RECEPTIONIST SENIOR RECEPTIONIST [facility] Work Phone: Start: 11-20-2015 End: 11-23-2016 Follow Up Appt 1 year Follow Up Appt 1 year [facility] Work Phone: Start: 11-15-2014 End: 11-15-2014 SENIOR RECEPTIONIST SENIOR RECEPTIONIST [facility] Work Phone: Start: 11-15-2014 End: 11-15-2014 Follow Up Appt 1 year Follow Up Appt 1 year [facility] Work Phone: Start: 10-30-2013 End: 10-30-2013 SENIOR RECEPTIONIST SENIOR RECEPTIONIST [facility] Work Phone: Start: 10-30-2013 End: 10-30-2013 Follow Up Appt 1 year Follow Up Appt 1 year [facility] Work Phone: Start: 11-01-2012 End: 11-17-2012 *BMP *BMP [facility] Work Phone: Start: 11-01-2012 End: 11-01-2012 24 hour holter monitor 24 hour holter monitor [facility] Work Phone: Start: 11-01-2012 End: 11-01-2012 SENIOR RECEPTIONIST SENIOR RECEPTIONIST [facility] Work Phone: Start: 11-01-2012 End: 11-01-2012 Echocardiography Echocardiogram (complete) [facility] Work Phone: Start: 11-01-2012 End: 11-01-2012 Follow Up Appt 1 year Follow Up Appt 1 year [facility] Work Phone: Start: 11-01-2012 End: 11-17-2012 Magnesium *Magnesium [facility] Work Phone: Start: 11-01-2012 End: 11-17-2012 Thyroid stimulating hormone (TSH) *TSH [facility] Work Phone: Start: 11-01-2012 End: 11-17-2012 Thyroxine (T4) *T4 (Total) [facility] Work Phone: Start: 08-26-2012 Screening for malign ant neoplasm of colon [facility] Start: 08-26-2002 Lipid panel Lipid Screening [facility] Start: 08-26-1986 Urine microalbumin profile DTa P,Tdap,Td Vaccine (1 - Tdap) [facility] Start: 08-26-1985 Hepatitis [facility] Start: 08-26-1985 HIV screening HIV Screening [facility] End: 12-08-2024 CT Wrist - right WO contrast CT WRIST WO IVCON RIGHT Radiology STAT Right wrist pain 1 Occurrences starting 11/09/2023 until 12/08/2024 [facility] Work Phone: Comment on above: 1 Occurrences starti ng 11/09/2023 until 12/08/2024 Patient referral [facility] Work Phone: Heart [facility] XR Wrist - right PA and Lateral and Oblique XR WRIST GENERAL 3V PA/LAT/OBL RIGHT Radiology Routine Pain in right wrist 11/09/2023 8:22 AM EDT [facility] Work Phone: Immunizations Immunization Date Immunization Notes Care Provider Nacho barriga 11-05-2003 hepatitis A and hepatitis B vaccine Wanda Garcias PA-C Work Phone: [facility] 08-05-2003 hepatitis A and hepatitis B vaccine Wanda Garcias PA-C Work Phone: [facility] 07-07-2003 hepatitis A and hepatitis B vaccine Wanda Garcias PA-C Work Phone: [facility] Payers Date Payer Category Payer Self-pay [id number] 2023 Unknown [employer]AE TAYLOR PPO [id number] 2023-Present [phone] [facility] [id number] [place] [address] PPO [id number] 2016 Unknown [id number] 1967 Unknown [id number] Unknown [id number] Unknown [id number] Unknown [id number] Unknown [id number] Unknown [id number] Unknown [id number] Unknown [id number] Unknown [id number] Social History Date Type Detail Facility Start: 12-04-2020 End: 03-28-2023 Tobacco smoking status [facility]IS Unknown if ever smoked [facility] Start: 09-15-2018 Non-smoker [place] [facility] Start: 1965 Sex Assigned At Male 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 (finding) [facility] Start: 11-09-2023 History of Social function [facility] Start: 11-09-2023 Tobacco use panel [facility] Start: 1965 Sex Assigned At Not on file [facility] Start: 08-31-2024 Sex Male (finding) [facility] Clinical Notes 11-03-2023 to 05-24-2024 Note Date & Type Note Facility 05-24-2024 Evaluation note Diagnosis Onset Date Resolution Bicuspid aortic valve chronic Dec ember 2023 1:31pm Hemochromatosis chronic May 24, 2024 1:31pm HLD (hyperlipidemia) chronic Dece mber 2023 1:31pm [facility] Work Phone: 1(406) 908-995106-06-2024 Telephone encounter Note* Telephone Encounter - Wanda Garcias PA-C - 11/10/2023 9:[address] results do not show a scaphoid fracture. Ok to discontinue brace as tolerated. Follow up in 4 weeks if no better. Relayed message to patient. Wanda Garcias PA-C [facility]06-06-2024 Miscellaneous Notes* Telephone Encounter - Wanda Garcias PA-C - 11/10/2023 9:[address] results do not show a scaphoid fracture. Ok to discontinue brace as tolerated. Follow up in 4 weeks if no better. Relayed message to patient. Wanda Garcias PA-C documented in this encounterOhio[facility]06-[facility] History of Present illness Narrative* Dedra Murrell, RT(R) - 11/10/2023 8:00 AM EDT Radiology Service Progress Note PATIENT NAME: Alejandro Reyes DATE OF SERVICE: November 10, 2023 TIME: 8:27 AM PATIENT IDENTITY VERIFICATION COMPLETED USING TWO (2) IDENTIFIERS: Name and Date of confirmedby patient verbally. FALL SCREENING: Has the patient had 2 falls in the last year or 1 fall with injury or currently using an Ambulatory Assistive Device (Walker, Cane, Wheelchair, Crutches, etc.)? 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 FALL SCREENING: Has the patient had 2 falls in the last year or 1 fall with injury or currently using an Ambulatory Assistive Device (Walker, Cane, Wheelchair, Crutches, etc.)? No PATIENT GENDER DATA: Male PATIENT RELEVANT IMPLANT DATA REVIEWED: Yes PATIENT PRESENTS WITH AN IMPLANTABLE OR ATTACHED ALCOHOL LAW ENFORCEMENT AGENT: No RADIOLOGY DEPARTMENT: CT; Exam(s) Completed: Upper extremity right wrist PERIPHERAL IV DATA: Not applicable SIGNED BY: RT Mick(Stacey) November 10, 2023 8:27 [facility]06-05-2024 NoteHNO ID: [id number] Author: WANDA GARCIAS PA-C Service: ? Author Type: Physician Continuity Writer Type: Progress Notes Filed: 11/09/2023 10:39 Note Text: Wanda Garcias PA-C Department of Orthopaedics Orthopaedics [facility] [place] [address] Dept: [phone] Dept November 09, 2023 SUBJECTIVE: CHIEF COMPLAINT: New and Pain of the Right Arm HPI: Mr. Alejandro Reyes is a 58 year old right hand dominant male. He presents today with right wrist pain that has been present since he tripped on a tarp and landed on bilateral FOOSH on 11/03/2023. He was seen that day in the ED where images were obtained and he was discharged home in a right thumb spica splint. He presents today for follow up. Today he rates his pain a 1 on a scale of 0 to 10. He has not been taking any medications for the pain. The pain is worse with activity. He has remained in his thumb spica brace. He previously underwent bilateral carpal tunnel releases and broke both forearm bones in the 80s, treated with casting. He denies any numbness/tingling. Past Medical History: PAST MEDICAL HISTORY Diagnosis Date Diabetes (HCC) Hemochromatosis History of bicuspid heart valve EVANS (nonalcoholic steatohepatitis) Past Surgical History: PAST SURGICAL HISTORY Procedure Laterality Date TONSILLECTOMY HX URETER DISSECTION Family History: FAMILY HISTORY Problem Relation Age of Onset Breast Cancer Mother Heart Mother Heart Father Hypertension Father Blood Disease Father Arthritis Father Social History: Social History Tobacco Use Smoking status: Never Substance Use Topics Alcohol use: No Drug use: No Medications: Current Outpatient Medications Medication Sig alpha tocopheryl acetate 400 unit capsule must be the d form, not the dl form liraglutide (VICTOZA 3-TOD) 0.6 mg/0.1 mL (18 mg/3 mL) pnij Inject 0.6 mg subcutaneously once daily. metFORMIN 500 mg tablet Take 500 mg by mouth once daily. pantoprazole 40 mg tablet Take 40 mg by mouth once daily. PSEUDOEPHEDRINE HCL (SUDAFED ORAL) Take by mouth as needed. No current facility-administered medications for this visit. Allergies: Demeral [Meperidine], Doxycycline, and Phenergan [Promethazine] ROS: General: negative for fatigue, malaise, weight loss/gain Musculoskeletal: see HPI Psych: no depression, anxiety OBJECTIVE: Mr. Alejandro Reyes is a pleasant 58 year old in no apparent distress. Gen:Ht 5' 10 (1.78m) Wt 175 lb (79.4kg) BMI 25.11 kg/(m2). nl development, non obese, no deformities ENT: Normocephalic, normal hearing, moist mucosa CV: Pulses:Radial= 2+ and symmetric, capillary refill < 2 secs, no peripheral edema/varicosities Skin: no rash, bruising or lesions. Good turgor. Psych: cooperative and appropriate, alert and oriented x 3, good mood and affect. Musculoskeletal: No obvious swelling, ecchymosis or deformity Snuffbox non-tender to palpation IMAGING: Images taken today and to my interpretation again demonstrate a cortical lucency at the scaphoid waist. Full imaging report available in epic. ASSESSMENT: M25.531 Right wrist pain (primary encounter diagnosis) S62.034A Closed nondisplaced fracture of proximal third of scaphoid bone of right wrist, initial encounter PLAN: Reviewed images taken today and take previously. Discussed with patient that I am concerned he has a scaphoid fracture. Diagnostic CT ordered today as his physical exam is not typical. Patient agreeable with plan and will remain in his thumb spica brace until CT is resulted. We will call him to discuss results and arrange appropriate follow up. FOLLOW UP INSTRUCTIONS: As appropriate after CT [facility] History of Present illness Narrative* Wanda Garcias PA-C - 11/09/2023 8:39 AM EDT Wanda Garcias PA-C Department of Orthopaedics Orthopaedics [address] [place] [address] Dept: [phone] Dept November 09, 2023 SUBJECTIVE: CHIEF COMPLAINT: New and Pain of the Right Arm HPI: Mr. Alejandro Reyes is a 58 year old right hand dominant male. He presents today with right wrist pain that has been present since he tripped on a tarp and landed on bilateral FOOSH on 11/03/2023. He was seen that day in the ED where images were obtained and he was discharged home in a right thumb spica splint. He presents today for follow up. Today he rates his pain a 1 on a scale of 0 to 10. He has not been taking any medications for the pain. The pain is worse with activity. He has remained in his thumb spica brace. He previously underwent bilateral carpal tunnel releases and broke both forearm bones in the 80s, treated with casting. He denies any numbness/tingling. Past Medical History: PAST MEDICAL HISTORY Diagnosis Date Diabetes (HCC) Hemochromatosis History of bicuspid heart valve EVANS (nonalcoholic steatohepatitis) Past Surgical History: PAST SURGICAL HISTORY Procedure Laterality Date TONSILLECTOMY HX URETER DISSECTION Family History: FAMILY HISTORY Problem Relation Age of Onset Breast Cancer Mother Heart Mother Heart Father Hypertension Father Blood Disease Father Arthritis Father Social History: Social History Tobacco Use Smoking status: Never Substance Use Topics Alcohol use: No Drug use: No Medications: Current Outpatient Medications Medication Sig alpha tocopheryl acetate 400 unit capsule must be the d form, not the dl form liraglutide (VICTOZA 3-TOD) 0.6 mg/0.1 mL (18 mg/3 mL) pnij Inject 0.6 mg subcutaneously once daily. metFORMIN 500 mg tablet Take 500 mg by mouth once daily. pantoprazole 40 mg tablet Take 40 mg by mouth once daily. PSEUDOEPHEDRINE HCL (SUDAFED ORAL) Take by mouth as needed. No current facility-administered medications for this visit. Allergies: Demeral [Meperidine], Doxycycline, and Phenergan [Promethazine] ROS: General: negative for fatigue, malaise, weight loss/gain Musculoskeletal: see HPI Psych: no depression, anxiety OBJECTIVE: Mr. Alejandro Reyes is a pleasant 58 year old in no apparent distress. Gen:Ht 5' 10 (1.78m) Wt 175 lb (79.4kg) BMI 25.11 kg/(m^2). nl development, non obese, no deformities ENT: Normocephalic, normal hearing, moist mucosa CV: Pulses:Radial= 2+ and symmetric, capillary refill < 2 secs, no peripheral edema/varicosities Skin: no rash, bruising or lesions. Good turgor. Psych: cooperative and appropriate, alert and oriented x 3, good mood and affect. Musculoskeletal: No obvious swelling, ecchymosis or deformity Snuffbox non-tender to palpation IMAGING: Images taken today and to my interpretation again demonstrate a cortical lucency at the scaphoid waist. Full imaging report available in epic. ASSESSMENT: M25.531 Right wrist pain (primary encounter diagnosis) S62.034A Closed nondisplaced fracture of proximal third of scaphoid bone of right wrist, initial encounter PLAN: Reviewed images taken today and take previously. Discussed with patient that I am concerned he has a scaphoid fracture. Diagnostic CT ordered today as his physical exam is not typical. Patient agreeable with plan and will remain in his thumb spica brace until CT is resulted. We will call him to discuss results and arrange appropriate follow up. FOLLOW UP INSTRUCTIONS: As appropriate after CT Wanda Garcias PA-C documented in this encounterOhiohealth [facility]06-05-2024 History of Present illness Narrative* Sania Graff RT(R) - 11/09/2023 8:15 AM EDT Radiology Service Progress Note PATIENT NAME: Alejandro Reyes DATE OF SERVICE: November 09, 2023 TIME: 8:24 AM PATIENT IDENTITY VERIFICATION COMPLETED USING TWO (2) IDENTIFIERS: Name and Date of confirmedby patient verbally. FALL SCREENING: Has the patient had 2 falls in the last year or 1 fall with injury or currently using an Ambulatory Assistive Device (Walker, Cane, Wheelchair, Crutches, etc.)? No PATIENT GENDER DATA: Male PATIENT RELEVANT IMPLANT DATA REVIEWED: Not Applicable PATIENT PRESENTS WITH AN IMPLANTABLE OR ATTACHED ALCOHOL LAW ENFORCEMENT AGENT: No RADIOLOGY DEPARTMENT: General X-ray: Exam(s) Completed: Upper Extremity X- Ray(s): Wrist, right PERIPHERAL IV DATA: Not applicable SIGNED BY: JACK Estes) November 09, 2023 8:24 AM documented in this encounterOhiohealth Nelsonville [facility]06-05-2024 NoteHNO ID: [id number] Author: SANIA GRAFF RT(R) Service: ? Author Type: Tablet Making Machine Operator Helper Type: Progress Notes Filed: 11/09/2023 08:24 Note Text: Radiology Service Progress Note PATIENT NAME: Alejandro Reyes DATE OF SERVICE: November 09, 2023 TIME: 8:24 AM PATIENT IDENTITY VERIFICATION COMPLETED USING TWO (2) IDENTIFIERS: Name and Date of confirmed by patient verbally. FALL SCREENING: Has the patient had 2 falls in the last year or 1 fall with injury or currently using an Ambulatory Assistive Device (Walker, Cane, Wheelchair, Crutches, etc.)? No PATIENT GENDER DATA: Male PATIENT RELEVANT IMPLANT DATA REVIEWED: Not Applicable PATIENT PRESENTS WITH AN IMPLANTABLE OR ATTACHED ALCOHOL LAW ENFORCEMENT AGENT: No RADIOLOGY DEPARTMENT: General X-ray: Exam(s) Completed: Upper Extremity X-Ray(s): Wrist, right PERIPHERAL IV DATA: Not applicable SIGNED BY: RT Meera(R) November 09, 2023 8:24 [facility]05-30-2024 NoteHNO ID: [id number] Author: INGRID LOMAS RT(R) Service: ? Author Type: Technologist Type: Progress Notes Filed: 11/03/2023 21:25 Note Text: Radiology Service Progress Note PATIENT NAME: Alejandro Reyes DATE OF SERVICE: November 03, 2023 TIME: 9:25 PM PATIENT IDENTITY VERIFICATION COMPLETED USING TWO (2) IDENTIFIERS: Name and Date of confirmed by patient verbally and Name and Date of confirmed by identification band. FALL SCREENING: Has the patient had 2 falls in the last year or 1 fall with injury or currently using an Ambulatory Assistive Device (Walker, Cane, Wheelchair, Crutches, etc.)? Emergency Room Patient: Screened in ED PATIENT GENDER DATA: Male PATIENT RELEVANT IMPLANT DATA REVIEWED: Not Applicable PATIENT PRESENTS WITH AN IMPLANTABLE OR ATTACHED ALCOHOL LAW ENFORCEMENT AGENT: No RADIOLOGY DEPARTMENT: General X-ray: Exam(s) Completed: Upper Extremity X-Ray(s): Wrist, bilateral PERIPHERAL IV DATA: Not applicable SIGNED BY: RT Sergio(R) November 03, 2023 9:25 PMMedi HospitalEvaluation noteNo assessment information availableWSt. [facility] Work Phone: Evaluation note* Diagnosis Onset Date Resolution Status Bicuspid aortic valve chroni c Hemochromatosis chronic HLD (hyperlipidemia) [facility] Work Phone: Evaluation note* Diagnosis Right wrist pain- Primary Pain in joint, forearm Closed nondisplaced fracture of proximal third of scaphoid bone of right wrist, initial encounter documented [facility] this encounter [facility]* Diagnosis Pain in right wrist Pain in joint, forearm documented in this encounter [facility]* Diagnosis Right wrist pain Pain in joint, forearm documented in this encounter [facility]Res[facility] (narrative)No reason for referral information availableWSt. Anthony's Hospital Work Phone: Family History No Family History Records Found Relationship Condition Age at Onset Recorded Date/T estefania father Coronary artery disease Unknown mother Cardiac disease Unknown Malignant neoplasm of breast Unknown Advance Directives No Advanced Directives Records Found Advance Directive Response Recorded Date/ Time Living Will No September 15, 2018 2:22pm Power of Range Rider No September 15 2:22pm Advance Directive Response Recorded Date/ Time Living Will No September 15, 2018 1:22pm Power of Range Rider No September 15 1:22pm Advance Directive Response Recorded Date/ Time Living Will No September 15, 2018 2:22pm Do you have a [facility] Power of Range Rider? No September 15, 2018 2:22pm Summary Purpose Chief Complaint and Reason for Visit Chief Complaint 1 Y FU moved from CS O Reason for Visit Bicuspid aortic valv e Hemochromatosis HLD (hyperlipidemia) Chief Complaint 1 Y FU moved from CS O AORTIC VALVE INSUFFICIENCY Reason for Visit Bicuspid aortic valv e Hemochromatosis HLD (hyperlipidemia) Chief Complaint 1 Y FU moved from CS O AORTIC VALVE INSUFFICIENCY LUQ AND FLANK PAIN Reason for Visit Bicuspid aortic valv e Hemochromatosis HLD (hyperlipidemia) Chief Complaint AORTIC VALVE INSUFFI CIENCY LUQ AND FLANK PAIN Chief Complaint Admit Date 1 Y FU May 24, 2024 1:31pm Reason for Visit Admit Date Bicuspid aortic valve May 24 1:31pm Hemochromatosis May 24, 2024 1:31pm HLD (hyperlipidemia) May 24, 2024 1:31pm Chief Complaint Admit Date BOTH ORDERS October 30, 2024 8:37a m Reason for Referral Specialty Diagnoses / Procedures Referred By Jadiel t Referred To Contact CT IMAGING Diagnoses Right wrist pain Procedures CT WRIST WO IVCON RIGHT CT UPPER EXTREMITY W/O CONTRAST MATERIAL Wanda Garcias PA-C [address] [place] [address] [place] [address] Referral ID Status Reason Start Date Expiration Date Visits Requested Visits Authorized [id number] Authorized Auto-Generat ed Referral 11/09/2023 06/05/2024 1 1 Referral ID Status Reason Start Date Expiration Date V isits Requested Visits Authorized [id number] Closed Auto-Generate d Referral 11/09/2023 06/05/2024 1 1 Additional Source Comments Goals (unrecognized section and content) Goals may be documented in a n alternate sectionGoals may be documented in an alternate sectionGoals may be documented in an alternate sectionGoals may be documented in an alternate sectionGoals may be documented in an alternate sectionGoals may be documented in an alternate sectionGoals may be documented in an alternate sectionGoals may be documented in an alternate sectionGoals may be documented in an alternate sectionGoals may be documented in an alternate section Care Teams (unrecognized sec tion and content) Team Status: Active Member Role Status Dates Dr. Jacinto Arroyo DO Family Provider Active Dr. Jacinto Arroyo DO Primary Care Provider Active Team Status: Inactive Member Role Status Dates Dr. Jacinto Arroyo DO Primary Care Prov ider, Attending Provider, Referring Provider Active Team Status: Inactive Member Role Status Dates Dr. Jacinto Arroyo DO Primary Care Provider, Referrin g Provider Active Dr. Jonnathan Celeste MD Active Navi Castelan MOTOR VEHICLE LECTURER, MOTOR VEHICLE LECTURER-C Attending Provider Active Team Status: Active Member Role Status Dates Dr. Jacnito Arroyo DO Primary Care Provider Active Dr. Jonnathan Celeste MD Attending Provider Active Team Status: Inactive Member Role Status Dates Dr. Jacinto Arroyo DO Primary Care Provider Active Navi Castelan MOTOR VEHICLE LECTURER, MOTOR VEHICLE LECTURER-C Attending Provider, Referring Pro vider Active Team Status: Inactive Member Role Status Dates Dr. Jacinto Arroyo DO Primary Care Provider, Attendin g Provider Active Medical Care Manager Relationship Specialty Start Date End Date Jacinto Arroyo DO [address] [place] [address] PCP - General Family Medicine 11/03/23 Medical Care Manager Relationship Specialty Start Date End Date Jacinto Arroyo DO [address] [place] [address] PCP - General Family Medicine 11/03/23 Medical Care Manager Relationship Specialty Start Date End Date Jacinto Arroyo DO [address] [place], [place] [address] PCP - General Family Medicine 11/03/23 Medical Care Manager Relationship Specialty Start Date End Date Jacinto Arroyo DO [address] [place], [place] [address] PCP - General Family Medicine 11/03/23 Team Status: Active Member Role Status Dates Dr. Jacinto Arroyo DO Primary Care Provider Active Team Status: Inactive Member Role Status Dates Dr. Jacinto Arroyo DO Primary Care Provider Active Start: May 24, 2024 End: May 24, 2024 Dr. Jacinto Arroyo DO Referring Provider Active Start: May 24, 2024 End: May 24, 2024 Dr. Jonnathan Celeste MD Attending Provider Active S tart: May 24, 2024 End: May 24, 2024 Team Status: Inactive Member Role Status Dates Dr. Jacinto Arroyo DO Primary Care Provider Active Start: August 23, 2024 End: August 23, 2024 Dr. Jacinto Arroyo DO Attending Provider Active Start: August 23, 2024 End: August 23, 2024 Dr. Jacinto Arroyo DO Referring Provider Active Start: August 23, 2024 End: August 23, 2024 Team Status: Inactive Member Role Status Dates Dr. Jacinto Arroyo DO Primary Care Provider Active Start: October 30, 2024 End: October 30, 2024 Dr. Jacinto Arroyo DO Attending Provider Active Start: October 30, 2024 End: October 30, 2024 Dr. Jacinto Arroyo DO Referring Provider Active Start: October 30, 2024 End: October 30, 2024 Team Status: Active Member Role Status Dates Dr. Jacinto Arroyo DO Primary Care Provider Active Start: November 01, 2024 Dr. Kg Coker MD Attending Provider Active Start: November 01, 2024 Dr. Kg Coker MD Referring Provider Active Start: November 01, 2024 Team Status: Inactive Member Role Status Dates Dr. Jacinto Arroyo DO Primary Care Provider Active Start: November 01, 2024 End: November 01, 2024 Dr. Kg Coker MD Attending Provider Active Start: November 01, 2024 End: November 01, 2024 Dr. Kg Coker MD Referring Provider Active Start: November 01, 2024 End: November 01, 2024 (unrecognized sect ion and content) No Status Records FoundNo Status Records FoundNo Status Records FoundNo Status Records Found INFORMATION SOURCE (unrecogn ized section and content) DATE CREATED AUTHOR 03/14/2023 [facility] DATE CREATED AUTHOR AUTHOR'S ORGANIZ ATION 11/04/2023 [facility] DATE CREATED AUTHOR AUTHOR'S ORGANIZ ATION 11/11/2023 [facility] DATE CREATED AUTHOR AUTHOR'S ORGANIZ ATION 11/06/2024 [facility] Source Comments (unrecognize d section and content) In the event this informatio n is protected by the Federal Confidentiality of Alcohol and Drug Abuse Patient Records regulations: The Federal rules restrict any use of the information to criminally investigate or prosecute any alcohol or drug abuse patient.[facility] CenterIn the event this information is protected by the Federal Confidentiality of Alcohol and Drug Abuse Patient Records regulations: The Federal rules restrict any use of the information to criminally investigate or prosecute any alcohol or drug abuse patient.[facility] CenterIn the event this information is protected by the Federal Confidentiality of Alcohol and Drug Abuse Patient Records regulations: The Federal rules restrict any use of the information to criminally investigate or prosecute any alcohol or drug abuse patient.[facility] CenterIn the event this information is protected by the Federal Confidentiality of Alcohol and Drug Abuse Patient Records regulations: The Federal rules restrict any use of the information to criminally investigate or prosecute any alcohol or drug abuse patient.[facility] Reason for Visit (unrecogniz ed section and content) Reason Comments New Pain Reason Comments Radio Gen RMP Specialty Diagnoses / Procedures Referred By Jadiel t Referred To Contact XR IMAGING Diagnoses Pain in right wrist Procedures XR WRIST GENERAL 3V PA/LAT/OBL RIGHT RADEX WRIST COMPLETE MINIMUM 3 VIEWS Wanda Garcias PA-C [address] [place] [address] Xr Imaging [id number] Referral ID Status Reason Start Date Expiration Date V isits Requested Visits Authorized [id number] Closed Auto-Generate d Referral 11/09/2023 12/08/2024 [address] Specialty Diagnoses / Procedures Referred By Jadiel t Referred To Contact CT IMAGING Diagnoses Right wrist pain Procedures CT WRIST WO IVCON RIGHT CT UPPER EXTREMITY W/O CONTRAST MATERIAL Wanda Garcias PA-C [address] [place] [address] [place] [address] Referral ID Status Reason Start Date Expiration Date V isits Requested Visits Authorized [id number] Closed Auto-Generate d Referral 11/09/2023 06/05/2024 1 1 FOR RECORDS PERTAINING TO PATIENTS WHO ARE [...] BE BASED ON THE PRIMARY CLINICAL RECORDS. [facility] [employer]. provides no warranty or guarantee of the accuracy or completeness of information in this document.
== END | disposition home or self-care (01) ==
LOC: MTRAD 12:48
PROVIDERS: PCP Family Medicine; Referring Provider Family Medicine; Visit Provider Family Medicine
DX: R05.9 Cough, unspecified (principal)
CPT/HCPCS: 71046

== ENCOUNTER → 2025-02-06 | Outpatient (CLI) | payer BC, SELFPAY ==
[2025-02-06 09:01] LABS: Hematocrit 38.5 % (40-54); Hemoglobin 13.1 g/dL (13.0-16.5); Immature Granulocytes Count 0.000 X10^3/uL (0.0-0.0); Mean Corp Hgb Conc 34.0 g/dL (32-36); Mean Corpuscular Volume 92.3 fL (80-94); Mean Platelet Vol. 9.3 fl (6.2-12.0); NRBC Flagged by Analyzer 0 % (0-5); Platelet Count 222 K/mm3 (150-450); RBC Distribution Width CV 13.1 % (11.6-14.6); RBC Distribution Width SD 44.1 fl (35.1-43.9); Red Blood Count 4.17 M/mm3 (4.6-6.2); White Blood Count 3.7 K/mm3 (4.4-11.0)
[2025-02-06 10:12] LABS: AST(SGOT) 14 U/L (<=37); Alanine Aminotransfer ALT/SGPT 13 U/L (<=46); Albumin, Serum 4.7 g/dL (3.5-5.0); Alkaline Phosphatase 55 U/L (40-129); Anion Gap 12 (5-15); BUN 16 mg/dL (4-19); BUN/Creat Ratio 15.0 RATIO (10-20); Calcium,Total 9.5 mg/dL (7.6-11.0); Carbon Dioxide 23.2 mmol/L (21.0-32.0); Chloride 104 mmol/L (98-108); Cholesterol 130 mg/dL (<=200); Ferritin 15 ng/mL (37-417); Globulin 2.2 g/dL (2.2-4.2); Glucose 124 mg/dL (70-99); HIV Nonreactive (Nonreactive); Low Density Lipoprotein Calc. 69 mg/dL; Potassium 4.4 mmol/L (3.3-5.1); Syphilis Antibodies Nonreactive (Nonreactive); Triglycerides 89 mg/dL; Very Low Density Lipoprotein 18 mg/dL (5-40); cholesterol:hdl ratio screen 2.99
[2025-02-06 10:14] LABS: Creatinine, Urine (random) 147.00 mg/dL (39.00-259.00); Microalbumin,Random Urine < 12.0 mg/L (<20 mg/L)
[2025-02-06 10:51] LABS: Iron 75 ug/dL (65-175)
== END | disposition home or self-care (01) ==
LOC: LAB 08:08
PROVIDERS: PCP Family Medicine; Visit Provider Family Medicine
DX: Z20.9 Contact with and (suspected) exposure to unspecified communicable disease (principal); E11.9 Type 2 diabetes mellitus without complications; E83.119 Hemochromatosis, unspecified; K75.81 Nonalcoholic steatohepatitis (NASH); E78.5 Hyperlipidemia, unspecified
CPT/HCPCS: 36415; 80053; 80061; 82043; 82570; 82728; 83036; 83540; 85025; 86703; 86780; 87491; 87591

== ENCOUNTER → 2025-05-08 | Outpatient (CLI) | payer BC, SELFPAY ==
[2025-05-08 10:01] LABS: Hematocrit 37.5 % (40-54); Hemoglobin 12.9 g/dL (13.0-16.5); Immature Granulocytes Count 0.010 X10^3/uL (0.0-0.0); Mean Corp Hgb Conc 34.4 g/dL (32-36); Mean Corpuscular Volume 90.8 fL (80-94); Mean Platelet Vol. 9.4 fl (6.2-12.0); NRBC Flagged by Analyzer 0 % (0-5); Platelet Count 213 K/mm3 (150-450); RBC Distribution Width CV 13.2 % (11.6-14.6); RBC Distribution Width SD 43.8 fl (35.1-43.9); Red Blood Count 4.13 M/mm3 (4.6-6.2); White Blood Count 5.1 K/mm3 (4.4-11.0)
[2025-05-08 11:39] LABS: AST(SGOT) 17 U/L (<=37); Alanine Aminotransfer ALT/SGPT 19 U/L (<=46); Albumin, Serum 4.3 g/dL (3.5-5.0); Alkaline Phosphatase 72 U/L (40-129); Anion Gap 12 (5-15); BUN 16 mg/dL (4-19); BUN/Creat Ratio 14.4 RATIO (10-20); Calcium,Total 9.1 mg/dL (7.6-11.0); Carbon Dioxide 24.3 mmol/L (21.0-32.0); Chloride 104 mmol/L (98-108); Cholesterol 128 mg/dL (<=200); Ferritin 19 ng/mL (37-417); Globulin 2.5 g/dL (2.2-4.2); Glucose 125 mg/dL (70-99); HIV Nonreactive (Nonreactive); Low Density Lipoprotein Calc. 67 mg/dL; Potassium 4.5 mmol/L (3.3-5.1); Syphilis Antibodies Nonreactive (Nonreactive); Triglycerides 121 mg/dL; Very Low Density Lipoprotein 24 mg/dL (5-40); cholesterol:hdl ratio screen 3.26
[2025-05-08 11:53] LABS: Iron 40 ug/dL (65-175)
== END | disposition home or self-care (01) ==
LOC: LAB 09:19
PROVIDERS: PCP Family Medicine; Referring Provider Family Medicine; Visit Provider Family Medicine
DX: Z51.81 Encounter for therapeutic drug level monitoring (principal); E11.9 Type 2 diabetes mellitus without complications; E83.119 Hemochromatosis, unspecified; K75.81 Nonalcoholic steatohepatitis (NASH); E78.5 Hyperlipidemia, unspecified; Z20.9 Contact with and (suspected) exposure to unspecified communicable disease
CPT/HCPCS: 36415; 80053; 80061; 82728; 83036; 83540; 85025; 86703; 86780; 87491; 87591